=== PATIENT | female | born 1940 | race Caucasian/White ===

== ENCOUNTER 2016-06-26 14:07 | Emergency (ER) | payer MEDICARE, OTHER ==
[2016-06-26] MEDS ORDERED: Acetaminophen TAB* 325 MG PO ONE (16:13)
[2016-06-26] MEDS ORDERED: NS 0.9% 1000 ML* 1,000 ML IV ONE (16:13)
[2016-06-26 16:34] LABS: Hematocrit 35 % (35-47); Hemoglobin 11.7 g/dl (12.0-16.0); Mean Corpuscular HGB Conc 33 g/dl (31-36); Mean Corpuscular Hemoglobin 30 pg (27-31); Mean Corpuscular Volume 90 fL (80-97); Mean Platelet Volume 7 um3 (7.4-10.4); Red Blood Count 3.89 10^6/ul (4.0-5.4); Red Cell Distribution Width 14 % (10.5-15); White Blood Count 12.7 10^3/ul (3.5-10.8)
--- NOTE | 2016-06-26 16:37 | RAD ---
Indication: Headache, fever, body aches. Comparison: June 19, 2015 chest radiograph. Technique: Upright AP 1628 hours Report: Elevated lung volumes and both mild coarsening and rarefaction of the interstitial markings. Mild asymmetric patchy alveolar opacity in the RIGHT mid to upper lung zone concerning for potential inflammatory infiltrate. Negative for pleural effusion or pneumothorax. The heart, pulmonary vasculature, and mediastinal contours are unremarkable. Unchanged sharply circumscribed lucency at the proximal metaphysis of the RIGHT humerus without concern. IMPRESSION: Suggestion of mild inflammatory infiltrate at the RIGHT mid to upper lung zone superimposed on chronic obstructive pulmonary disease and emphysema.
[2016-06-26 16:43] LABS: Troponin I 0.01 ng/mL (<0.04)
[2016-06-26 16:45] LABS: Albumin 4.3 g/dL (3.2-5.2); BUN/Creatinine Ratio 11.9 (8-20); C Reactive Protein 11.46 mg/L (< 5.00); Calcium 9.1 mg/dL (8.6-10.3); EGFR Non-African American 86.3 (>60); Globulin 3.1 g/dL (2-4); Potassium 4.1 mmol/L (3.5-5.0); Total Bilirubin 0.3 mg/dL (0.2-1.0); Total Protein 7.4 g/dL (6.4-8.9)
[2016-06-26 19:03] LABS: Urine Bacteria Absent (Absent); Urine Bilirubin Negative (Negative); Urine Glucose Negative (Negative); Urine Nitrite Negative (Negative)
[2016-06-26] MEDS ORDERED: Levofloxacin 750 MG IVPREMIX(* 750 MG/150 ML BAG IVPB ONE (19:29)
[2016-06-26] MEDS ORDERED: oxyCODONE/Acetamin 5/325 MG* TAB PO ONE (19:29)
[2016-06-26 21:45] VITALS: BP 124/51
--- NOTE | 2016-06-27 17:21 | ED ---
Lazara Lagos Claudia, scribed for Dinesh Castillo MD on 06/26/16 at 1545 . Complex/Multi-Sys Presentation - HPI Summary HPI Summary: 75 year old female presents to the ED with multi-Sx. Pt notes gradual onset of Sx since Thursday. She notes that she went for an infusion on Thursday and began developing intermittent fevers, low back pain. MONROE, nausea and urinary Sx. She notes that the injection site to her right abdomen is erythematous and is warm. Pt describes the MONROE as a severe MNOROE located at the superior aspect of her head. She notes that within the past few days she has tried to urinate with smaller volume than usual. Her notes intermittent fevers reaching to 101F. Pt has tried to contact Dr. Paz the physician observing her infusion treatments but he has been out of the office. Pt then went to Dr. Costello today for monthly check-up and she referred the pt to the ED for further evaluation. - History Of Current Complaint Chief Complaint: EDGeneral Hx Obtained From: Patient, Family/Graffiti Cleaner - Onset/Duration: Gradual Onset, Lasting Days - since Thursday Timing: Constant Character: Sharp, Throbbing Associated Signs And Symptoms: Positive: Weakness, Nausea, Back Pain, Fever, Other - urinary Sx - Allergies/Home Medications Allergies/Adverse Reactions: Allergies Allergy/AdvReac Type Severity Reaction Status Date / Time No Known Allergies Allergy Verified 06/26/16 21:48 PMH/Surg Hx/FS Hx/Imm Hx Previously Healthy: Yes Endocrine/Hematology History: Reports: Hx Blood Transfusions Denies: Hx Blood Disorders, Hx Bone Marrow Disease, Hx Diabetes, Hx Systemic Lupus Erythematosus, Hx Sickle Cell Disease, Hx Thyroid Disease, Hx Anemia, Hx Unexplained Bleeding, Other Endocrine/Hematological Disorders - markers for multiple myoloma, lupus-- sees Dr Perry Comment Only: Hx Anticoagulant Therapy - HX COUMADIN (NOT CURRENTLY ON) Cardiovascular History: Reports: Hx Deep Vein Thrombosis - DVT/PE, Hx Hypercholesterolemia, Other Cardiovascular Problems/Disorders - TACHYCARDIA while hospitalized 2011 Denies: Hx Aneurysm, Hx Angina, Hx Angioplasty, Hx Auto Implanted Cardiovert Defib, Hx Cardiac Arrest, Hx Cardiomegaly, Hx Congenital Heart Disease, Hx Congestive Heart Failure, Hx Coronary Artery Disease, Hx Hypotension, Hx Hypertension, Hx Pacemaker/ICD, Hx Peripheral Vascular Disease, Hx Rheumatic Fever, Hx Syncope, Hx Valvular Heart Disease Respiratory History: Reports: Hx Asthma, Hx Chronic Bronchitis, Hx Chronic Obstructive Pulmonary Disease (COPD) - 2012, Hx Pneumonia, Hx Pulmonary Embolism , Hx Seasonal Allergies, Other Respiratory Problems/Disorders - HX MECH INTUBATION Denies: Hx Cystic Fibrosis, Hx Lung Cancer, Hx Pleural Effusion, Hx Pulmonary Edema, Hx Sleep Apnea GI History: Reports: Other GI Disorders - cyst on liver found 2012 hospitalization Denies: Hx Cirrhosis, Hx Crohn's Disease, Hx Diverticulosis, Hx Gall Bladder Disease, Hx Gastroesophageal Reflux Disease, Hx Gastrointestinal Bleed, Hx Hiatal Hernia, Hx Irritable Bowel, Hx Jaundice, Hx Obstructive Bowel, Hx Ileostomy, Hx Pyloric Stenosis, Hx Ulcer History: Denies: Hx Acute Renal Failure, Hx Benign Prostatic Hyperplasia, Hx Chronic Renal Failure, Hx Dialysis, Hx Kidney Infection, Hx Kidney Stones, Hx Renal Disease, Other Problems/Disorders Musculoskeletal History: Reports: Hx Arthritis, Other Musculoskeletal History - rotator cuff 06/2010 Denies: Hx Rheumatoid Arthritis, Hx Back Problems, Hx Bursitis, Hx Congenital Bone Abnormalities, Hx Fibromyalgia, Hx Gout, Hx Orthopedic Injury, Hx Osteoporosis, Hx Scoliosis, Hx Tendonitis Sensory History: Reports: Hx Contacts or Glasses - reading Denies: Hx Hearing Aid Opthamlomology History: Reports: Hx Contacts or Glasses - reading Neurological History: Reports: Other Neuro Impairments/Disorders - panic attack- -tachy takes lorazapam Denies: Hx Dementia, Hx Developmental Delay, Hx Headaches, Hx Migraine, Hx Nerve Disease, Hx Seizures, Hx Spinal Cord Injury, Hx Transient Ischemic Attacks (TIA) Psychiatric History: Reports: Hx Anxiety, Hx Depression Denies: Hx Attention Deficit Hyperactivity Disorder, Hx Eating Disorder, Hx Panic Disorder, Hx Post Traumatic Stress Disorder, Hx Community Mental Health Tx , Hx Schizophrenia, Hx Bipolar Disorder, Hx Suicide Attempt, Hx of Violent Episodes Against Others, Hx Substance Abuse, Other Psychiatric Issues/Disorders - Cancer History Cancer Type, Location and Year: states marker for multiple myeloma Hx Chemotherapy: No - Surgical History Surgery Procedure, Year, and Place: RT SHOULDER ROTATOR CUFF REPAIR. TRACHEOSTOMY ([facility]) 2011 r/t pneumonia Hx Anesthesia Reactions: No Infectious Disease History: Denies: Hx Clostridium Difficile, Hx Hepatitis, Hx Human Immunodeficiency Virus (HIV), Hx Shingles, Hx Tuberculosis, History Other Infectious Disease, Traveled Outside the [place] in Last 30 Days - Family History Family History: Breast CA - Social History Occupation: Retired Lives: With Family - Alcohol Use: None Substance Use Type: Reports: None Hx Tobacco Use: Yes Smoking Status (MU): Former Smoker Type: Cigarettes Amount Used/How Often: 1 PPD Length of Time of Smoking/Using Tobacco: 25 years Have You Smoked in the Last Year: No Cessation Counseling: Patient Advised to Stop Review of Systems Positive: Fever Eyes: Negative ENT: Negative Cardiovascular: Negative Respiratory: Negative Positive: Abdominal Pain, Nausea Positive: frequency - with decreased volume Musculoskeletal: Negative Skin: Negative Positive: Headache Psychological: Normal All Other Systems Reviewed And Are Negative: Yes Physical Exam Triage Information Reviewed: Yes Vital Signs On Initial Exam: Initial Vitals Temp Pulse Resp BP Pulse Ox 98.7 F 86 24 147/60 98 06/26/16 14:15 06/26/16 14:15 06/26/16 14:15 06/26/16 14:15 06/26/16 14:15 Vital Signs Reviewed: Yes Appearance: Positive: Well-Appearing, No Pain Distress Skin: Positive: Warm, Skin Color Reflects Adequate Perfusion, Dry, Other - mild erythema in right wall of abdomen with induration under it Head/Face: Positive: Normal Head/Face Inspection Eyes: Positive: Normal ENT: Positive: Normal ENT inspection Neck: Positive: Supple, Nontender Respiratory/Lung Sounds: Positive: Clear to Auscultation, Breath Sounds Present Cardiovascular: Positive: RRR Abdomen Description: Positive: Nontender, Soft Musculoskeletal: Positive: Normal Neurological: Positive: Normal Psychiatric: Positive: Affect/Mood Appropriate Diagnostics - Vital Signs Vital Signs Temp Pulse Resp BP Pulse Ox 06/26/16 15:10 86 17 154/49 93 06/26/16 14:15 98.7 F 86 24 147/60 98 - Laboratory Lab Results: Lab Results 06/26/16 06/26/16 06/26/16 Range/Units 15:32 16:00 16:00 WBC 12.7 H (3.5-10.8) 10^3/ul RBC 3.89 L (4.0-5.4) 10^6/ul Hgb 11.7 L (12.0-16.0) g/dl Hct 35 (35-47) % MCV 90 (80-97) fL MCH 30 (27-31) pg MCHC 33 (31-36) g/dl RDW 14 (10.5-15) % Plt Count 270 (150-450) 10^3/ul MPV 7 L (7.4-10.4) um3 Neut % (Auto) 86.4 H (38-83) % Lymph % (Auto) 8.4 L (25-47) % [place] % (Auto) 4.8 (1-9) % Eos % (Auto) 0.1 (0-6) % Baso % (Auto) 0.3 (0-2) % Absolute Neuts (auto) 11.0 H (1.5-7.7) 10^3/ul Absolute Lymphs (auto) 1.1 (1.0-4.8) 10^3/ul Absolute Monos (auto) 0.6 (0-0.8) 10^3/ul Absolute Eos (auto) 0 (0-0.6) 10^3/ul Absolute Basos (auto) 0 (0-0.2) 10^3/ul Absolute Nucleated RBC 0 10^3/ul Nucleated RBC % 0 INR (Anticoag Therapy) 1.01 (0.89-1.11) Sodium (133-145) mmol/L Potassium (3.5-5.0) mmol/L Chloride (101-111) mmol/L Carbon Dioxide (22-32) mmol/L Anion Gap (2-11) mmol/L BUN (6-24) mg/dL Creatinine (0.51-0.95) mg/dL Est GFR ( Amer) (>60) Est GFR (Non-Af Amer) (>60) BUN/Creatinine Ratio (8-20) Glucose (70-100) mg/dL Lactic Acid (0.5-2.0) mmol/L Calcium (8.6-10.3) mg/dL Total Bilirubin (0.2-1.0) mg/dL AST (13-39) U/L ALT (7-52) U/L Alkaline Phosphatase (34-104) U/L Troponin I (<0.04) ng/mL C-Reactive Protein (< 5.00) mg/L Total Protein (6.4-8.9) g/dL Albumin (3.2-5.2) g/dL Globulin (2-4) g/dL Albumin/Globulin Ratio (1-3) Urine Color Urine Appearance Urine pH (5-9) Ur Specific [place] (1.010-1.030) Urine Protein (Negative) Urine Ketones (Negative) Urine Blood (Negative) Urine Nitrate (Negative) Urine Bilirubin (Negative) Urine Urobilinogen (Negative) Ur Leukocyte Esterase (Negative) Urine WBC (Auto) (Absent) Urine RBC (Auto) (Absent) Ur Squamous Epith Cells (Absent) Amorphous Crystals (Absent) Urine Bacteria (Absent) Urine Glucose (Negative) Urine Ascorbic Acid (Negative) Influenza A (Rapid) Negative (Negative) Influenza B (Rapid) Negative (Negative) 06/26/16 06/26/16 06/26/16 Range/Units 16:00 16:00 18:44 WBC (3.5-10.8) 10^3/ul RBC (4.0-5.4) 10^6/ul Hgb (12.0-16.0) g/dl Hct (35-47) % MCV (80-97) fL MCH (27-31) pg MCHC (31-36) g/dl RDW (10.5-15) % Plt Count (150-450) 10^3/ul MPV (7.4-10.4) um3 Neut % (Auto) (38-83) % Lymph % (Auto) (25-47) % [place] % (Auto) (1-9) % Eos % (Auto) (0-6) % Baso % (Auto) (0-2) % Absolute Neuts (auto) (1.5-7.7) 10^3/ul Absolute Lymphs (auto) (1.0-4.8) 10^3/ul Absolute Monos (auto) (0-0.8) 10^3/ul Absolute Eos (auto) (0-0.6) 10^3/ul Absolute Basos (auto) (0-0.2) 10^3/ul Absolute Nucleated RBC 10^3/ul Nucleated RBC % INR (Anticoag Therapy) (0.89-1.11) Sodium 128 L (133-145) mmol/L Potassium 4.1 (3.5-5.0) mmol/L Chloride 97 L (101-111) mmol/L Carbon Dioxide 25 (22-32) mmol/L Anion Gap 6 (2-11) mmol/L BUN 8 (6-24) mg/dL Creatinine 0.67 (0.51-0.95) mg/dL Est GFR ( Amer) 111.0 (>60) Est GFR (Non-Af Amer) 86.3 (>60) BUN/Creatinine Ratio 11.9 (8-20) Glucose 126 H (70-100) mg/dL Lactic Acid 0.9 (0.5-2.0) mmol/L Calcium 9.1 (8.6-10.3) mg/dL Total Bilirubin 0.30 (0.2-1.0) mg/dL AST 31 (13-39) U/L ALT 36 (7-52) U/L Alkaline Phosphatase 50 (34-104) U/L Troponin I 0.01 (<0.04) ng/mL C-Reactive Protein 11.46 H (< 5.00) mg/L Total Protein 7.4 (6.4-8.9) g/dL Albumin 4.3 (3.2-5.2) g/dL Globulin 3.1 (2-4) g/dL Albumin/Globulin Ratio 1.4 (1-3) Urine Color Yellow Urine Appearance Cloudy Urine pH 7.0 (5-9) Ur Specific [place] 1.006 L (1.010-1.030) Urine Protein Negative (Negative) Urine Ketones Negative (Negative) Urine Blood Negative (Negative) Urine Nitrate Negative (Negative) Urine Bilirubin Negative (Negative) Urine Urobilinogen Negative (Negative) Ur Leukocyte Esterase Trace H (Negative) Urine WBC (Auto) Trace(0-5/hpf) (Absent) Urine RBC (Auto) Trace(0-2/hpf) (Absent) Ur Squamous Epith Cells Present H (Absent) Amorphous Crystals Present H (Absent) Urine Bacteria Absent (Absent) Urine Glucose Negative (Negative) Urine Ascorbic Acid * H (Negative) Influenza A (Rapid) (Negative) Influenza B (Rapid) (Negative) Result Diagrams: 06/26/16 16:00 06/26/16 16:00 Lab Statement: Any lab studies that have been ordered have been reviewed, and results considered in the medical decision making process. - Radiology CXR Xray Interpretation: Positive (See Comments) - Suggestion of mild inflammatory infiltrate at the RIGHT mid to upper lung zone superimposed on chronic obstructive pulmonary disease and emphysema. Radiology Interpretation Completed By: Radiologist Complex Multi-Symp Course/Dx Course Of Treatment: Ms. Castro remained stable in the ED and her CXR was read as early pneumonia. I will treat her and encourage close F/U. - Diagnoses Provider Diagnoses: Pneumonia Discharge - Discharge Plan Condition: Stable Disposition: HOME Prescriptions: HYDROcodone/ACETAMIN 5-325 MG* [[place] 5-325 TAB*] 1 tab PO Q6H PRN #20 tab MDD 4 PRN Reason: Pain Levofloxacin TAB* [Levaquin TAB*] 500 mg PO DAILY #10 tab Patient Education Materials: Hydrocodone/Acetaminophen (By mouth), Levofloxacin (By mouth), Pneumonia (ED) Referrals: Juan Pearce MD [Primary Care Provider] - 3 Days The documentation as recorded by the Lazara reynoso Claudia accurately reflects the service I personally performed and the decisions made by me, Dinesh Castillo MD.
== END 2016-06-26 21:43 | disposition home or self-care (01) ==
LOC: ED 14:07
DX: J18.9 Pneumonia, unspecified organism (principal); R53.1 Weakness; R11.0 Nausea; M54.9 Dorsalgia, unspecified; R50.9 Fever, unspecified; R51 Headache; Z87.891 Personal history of nicotine dependence
CPT/HCPCS: 36415; 71010; 80053; 81003; 81015; 83605; 84484; 85025; 85610; 86140; 87040; 87086; 87502; 96365; 99284; A9270-GY

== ENCOUNTER 2017-12-22 11:11 | Emergency (ER) | payer MEDICARE, OTHER ==
[2017-12-22] MEDS ORDERED: NS 0.9% 1000 ML*IV.FLUID IV ONE (11:21)
[2017-12-22] MEDS ORDERED: Piperacillin/Tazobac ADVAN(*) 3.375 GM in NS 0.9% 100 ML* 100 ML IVPB ONE (11:21)
--- NOTE | 2017-12-22 11:24 | ED ---
Shortness of Breath - HPI Summary HPI Summary: Patient is a 77 y/o female who presents to the ED c/o SOB. She had subcutaneous immunoglobulin infusion therapy yesterday. 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 She was in the ICU in a coma for 2 months. Patient began to have CP and SOB last night at 17:00. She called her field service technician poultry Dr. Paz this morning but he was not in office. - History of Current Complaint Chief Complaint: EDChestPainROMI Time Seen by Provider: 12/22/17 11:17 Hx Obtained From: Patient, Family/Account Development Representative - Onset/Duration: Lasting Hours - Last night 17:00, Still Present Timing: Constant Dyspnea At: Rest Aggrevating Factors: Other - Immunoglobulin infusion therapy Alleviating Factors: Nothing Associated Signs & Symptoms: Cough (Nonproductive), Wheezing, Chest Pain Unrelated to Cough - Allergy/Home Medications Allergies/Adverse Reactions: Allergies Allergy/AdvReac Type Severity Reaction Status Date / Time No Known Allergies Allergy Verified 06/26/16 21:48 Home Medications: Home Medications Aclidinium [place] [Tudorza Pressair] 400 mcg INH BID 12/22/17 [History Confirmed 12/22/17] Albuterol inh POWDER (NF) [Proair Respiclick] 2 puff INH QID PRN 12/22/17 [ History Confirmed 12/22/17] Albuterol/Ipratropium NEB.AUGUSTO* [Duoneb (Albuterol 2.5 MG/Ipratropium 0.5 MG)] 1 neb INH QID PRN 12/22/17 [History Confirmed 12/22/17] Amoxicillin PO (*) [Amoxicillin 500 MG CAP*] 1,000 mg PO ONCE PRN 12/22/17 [ History Confirmed 12/22/17] Ascorbic Acid TAB* [Vitamin C TAB*] 1,000 mg PO QAM 12/22/17 [History Confirmed 12/22/17] B2/Vits A,C,E/Lut/Zeaxanth/Min [Icaps Tablet] 2 tab PO DAILY 12/22/17 [History Confirmed 12/22/17] Clay/D3/Mag11/Zinc/Research Physiologist/Nathan/Bor [Caltrate 600+D Plus] 1 tab PO DAILY 12/22/17 [ History Confirmed 12/22/17] Cholecalciferol TAB* [Vitamin D TAB*] 1,000 unit PO DAILY 12/22/17 [History Confirmed 12/22/17] Cyanocobalamin (Vitamin B-12) [Vitamin B-12] 1,000 mcg PO DAILY 12/22/17 [ History Confirmed 12/22/17] Ferrous Sulfate [Iron] 325 mg PO DAILY 12/22/17 [History Confirmed 12/22/17] Fluticasone-Salmeterol 500-50* [Advair Diskus 500-50*] 1 puff INH BID 12/22/17 [ History Confirmed 12/22/17] Gabapentin CAP(*) [Neurontin 300 CAP(*)] 300 mg PO BID 12/22/17 [History Confirmed 12/22/17] Garlic [Garlic Oil 1000] 2 mg PO DAILY 12/22/17 [History Confirmed 12/22/17] Glucosamine/D3/Boswellia Bren [Osteo Bi-Flex Tablet] 1 tab PO DAILY 12/22/17 [ History Confirmed 12/22/17] Immun Glob G(IgG)/Gly/Iga Ov50 [Cuvitru] 8 gm SUBCUT WEEKLY 12/22/17 [History Confirmed 12/22/17] LORazepam TAB(*) [Ativan 0.5 MG TAB (*)] 0.5 mg PO Q8H PRN 12/22/17 [History Confirmed 12/22/17] Lactobacillus Combo No.10 [Probiotic] 1 cap PO BID 12/22/17 [History Confirmed 12/22/17] Lovastatin(NF) [Mevacor(NF)] 40 mg PO DAILY 12/22/17 [History Confirmed 12/22/17 ] Lutein [Natural Lutein] 20 mg PO DAILY 12/22/17 [History Confirmed 12/22/17] Meloxicam(NF) [Mobic(NF)] 7.5 mg PO DAILY PRN 12/22/17 [History Confirmed ] Multivit-Min/Iron/Folic/Lutein [Centrum Silver Women Tablet] 1 tab PO DAILY 05/10 [History Confirmed 12/22/17] [place]-3 Fatty Acids (Nf) [Fish Oil (NF)] 1,000 mg PO DAILY 12/22/17 [History Confirmed 12/22/17] Pyridoxine TAB* [Vitamin B6 TAB*] 25 mg PO DAILY 12/22/17 [History Confirmed 05/10] Roflumilast (NF) [Daliresp (NF)] 500 mcg PO DAILY 12/22/17 [History Confirmed ] Ropinirole TAB* [Requip TAB*] 0.25 mg PO QPM 12/22/17 [History Confirmed ] Sertraline* [Zoloft*] 25 mg PO DAILY MDD 50 mg 12/22/17 [History Confirmed 12/22] guaiFENesin [Mucinex] 800 mg PO DAILY PRN 12/22/17 [History Confirmed 12/22/17] predniSONE TAB* [Deltasone 1 MG TAB*] 2.5 mg PO DAILY 12/22/17 [History Confirmed 12/22/17] PMH/Surg Hx/FS Hx/Imm Hx Endocrine/Hematology History: Reports: Hx Blood Transfusions Denies: Hx Blood Disorders, Hx Bone Marrow Disease, Hx Diabetes, Hx Systemic Lupus Erythematosus, Hx Sickle Cell Disease, Hx Thyroid Disease, Hx Anemia, Hx Unexplained Bleeding, Other Endocrine/Hematological Disorders - markers for multiple myoloma, lupus-- sees Dr Perry Comment Only: Hx Anticoagulant Therapy - HX COUMADIN (NOT CURRENTLY ON) Cardiovascular History: Reports: Hx Deep Vein Thrombosis - DVT/PE, Hx Hypercholesterolemia, Other Cardiovascular Problems/Disorders - TACHYCARDIA while hospitalized 2011 Denies: Hx Aneurysm, Hx Angina, Hx Angioplasty, Hx Auto Implanted Cardiovert Defib, Hx Cardiac Arrest, Hx Cardiomegaly, Hx Congenital Heart Disease, Hx Congestive Heart Failure, Hx Coronary Artery Disease, Hx Hypotension, Hx Hypertension, Hx Pacemaker/ICD, Hx Peripheral Vascular Disease, Hx Rheumatic Fever, Hx Syncope, Hx Valvular Heart Disease Respiratory History: Reports: Hx Asthma, Hx Chronic Bronchitis, Hx Chronic Obstructive Pulmonary Disease (COPD) - 2011, Hx Pneumonia, Hx Pulmonary Embolism , Hx Seasonal Allergies, Other Respiratory Problems/Disorders - HX MECH INTUBATION Denies: Hx Cystic Fibrosis, Hx Lung Cancer, Hx Pleural Effusion, Hx Pulmonary Edema, Hx Sleep Apnea GI History: Reports: Other GI Disorders - cyst on liver found 2012 hospitalization Denies: Hx Cirrhosis, Hx Crohn's Disease, Hx Diverticulosis, Hx Gall Bladder Disease, Hx Gastroesophageal Reflux Disease, Hx Gastrointestinal Bleed, Hx Hiatal Hernia, Hx Irritable Bowel, Hx Jaundice, Hx Obstructive Bowel, Hx Ileostomy, Hx Pyloric Stenosis, Hx Ulcer History: Denies: Hx Acute Renal Failure, Hx Benign Prostatic Hyperplasia, Hx Chronic Renal Failure, Hx Dialysis, Hx Kidney Infection, Hx Kidney Stones, Hx Renal Disease, Other Problems/Disorders Musculoskeletal History: Reports: Hx Arthritis, Other Musculoskeletal History - rotator cuff 06/2010 Denies: Hx Rheumatoid Arthritis, Hx Back Problems, Hx Bursitis, Hx Congenital Bone Abnormalities, Hx Fibromyalgia, Hx Gout, Hx Orthopedic Injury, Hx Osteoporosis, Hx Scoliosis, Hx Tendonitis Sensory History: Reports: Hx Contacts or Glasses - reading Denies: Hx Hearing Aid Opthamlomology History: Reports: Hx Contacts or Glasses - reading Neurological History: Reports: Other Neuro Impairments/Disorders - panic attack- -tachy takes lorazapam Denies: Hx Dementia, Hx Developmental Delay, Hx Headaches, Hx Migraine, Hx Nerve Disease, Hx Seizures, Hx Spinal Cord Injury, Hx Transient Ischemic Attacks (TIA) Psychiatric History: Reports: Hx Anxiety, Hx Depression Denies: Hx Attention Deficit Hyperactivity Disorder, Hx Eating Disorder, Hx Panic Disorder, Hx Post Traumatic Stress Disorder, Hx Community Mental Health Tx , Hx Schizophrenia, Hx Bipolar Disorder, Hx Suicide Attempt, Hx of Violent Episodes Against Others, Hx Substance Abuse, Other Psychiatric Issues/Disorders - Cancer History Cancer Type, Location and Year: states marker for multiple myeloma Hx Chemotherapy: No Hx Radiation Therapy: No - Surgical History Surgery Procedure, Year, and Place: RT SHOULDER ROTATOR CUFF REPAIR. TRACHEOSTOMY ([facility]) 2012 r/t pneumonia Hx Anesthesia Reactions: No Infectious Disease History: No Infectious Disease History: Denies: Hx Clostridium Difficile, Hx Hepatitis, Hx Human Immunodeficiency Virus (HIV), Hx Shingles, Hx Tuberculosis, History Other Infectious Disease, Traveled Outside the [place] in Last 30 Days - Family History Known Family History: Positive: Other - Breast CA - Social History Alcohol Use: None Hx Substance Use: No Substance Use Type: Reports: None Hx Tobacco Use: Yes Smoking Status (MU): Former Smoker Type: Cigarettes Amount Used/How Often: 1 PPD Length of Time of Smoking/Using Tobacco: 25 years Have You Smoked in the Last Year: No Review of Systems Positive: Chest Pain Positive: Shortness Of Breath, Cough, Other - Wheezing All Other Systems Reviewed And Are Negative: Yes Physical Exam - Summary Physical Exam Summary: VITAL SIGNS: Reviewed. GENERAL: Patient is a well-developed and nourished FEMALE who is lying comfortable in the stretcher. Patient is in acute respiratory distress. HEAD AND FACE: No signs of trauma. No ecchymosis, hematomas or skull depressions. No sinus tenderness. EYES: PERRLA, EOMI x 2, No injected conjunctiva, no nystagmus. EARS: Hearing grossly intact. Ear canals and tympanic membranes are within normal limits. MOUTH: Oropharynx within normal limits. NECK: Supple, trachea is midline, no adenopathy, no JVD, no carotid bruit, no c- spine tenderness, neck with full ROM. CHEST: Symmetric, no tenderness at palpation LUNGS: Decreased breath sounds. Bilateral wheezes. Able to speak in full sentences. CVS: Regular rate and rhythm, S1 and S2 present, no murmurs or gallops appreciated. ABDOMEN: Soft, non-tender. No signs of distention. No rebound no guarding, and no masses palpated. Bowel sounds are normal. EXTREMITIES: FROM in all major joints, no edema, no cyanosis or clubbing. NEURO: Alert and oriented x 3. No acute neurological deficits. Speech is normal and follows commands. SKIN: Dry and warm Triage Information Reviewed: Yes Vital Signs On Initial Exam: Initial Vitals Temp Pulse Resp BP Pulse Ox 97 F 104 26 143/57 93 12/22/17 11:12 12/22/17 11:12 12/22/17 11:12 12/22/17 11:12 12/22/17 11:12 Vital Signs Reviewed: Yes Diagnostics - Vital Signs Vital Signs Temp Pulse Resp BP Pulse Ox 12/22/17 11:12 97 F 104 26 143/57 93 - Laboratory Result Diagrams: 12/22/17 11:51 12/22/17 11:51 Lab Statement: Any lab studies that have been ordered have been reviewed, and results considered in the medical decision making process. - Radiology CXR Xray Interpretation: No Acute Changes - COPD. NO ACUTE CARDIOPULMONARY CHANGES. ED physician reviewed radiology report. Radiology Interpretation Completed By: Radiologist - EKG 11:34 Cardiac Rate: NL - 93 bpm EKG Rhythm: Sinus Rhythm EKG Interpretation: No ST elevation, nl axis Course/Dx - Course Assessment/Plan: Patient is a 77 y/o female who presents to the ED c/o SOB. She had subcutaneous immunoglobulin infusion therapy yesterday. 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 She was in the ICU in a coma for 2 months. Patient began to have CP and SOB last night at 17:00. She called her field service technician poultry Dr. Paz this morning but he was not in office. Patient has past medical history significant for COPD O2 dependent, history of tobacco abuse, history of intubation and tracheostomy secondary to pneumonia in 2011, history of PE and DVT, history of frequent pneumonias and bronchitis and immunodeficiency for which the patient gets frequent immunoglobulin infusions. At arrival to the emergency room the patient is in respiratory distress, O2 sats is in the upper 80s, however the patient is able to speak in full sentences. Immediately the patient was placed in a manager cardiac cath, IV access was obtained and the patient was given DuoNeb's and Solu-Medrol and since the patient's is wheezing and picking decreased breath sounds bilaterally. I believe the patient is having an asthma exacerbation. However because the patient has an increase in heart rate, hypoxic, and she reports right course I gave the patient IV fluids 30 cc's per KG, I placed the patient and Zosyn as a broad-spectrum antibiotic. Blood test results shows wbc's of 15.1, with 83.5 neutrophils, fibrinogen of 531.5, sodium 131, chloride 98, glucose 125, and CRP of 54.6. Chest x-ray impression: COPD. No active Pulmonary disease. EKG shows a normal sinus rhythm without any ST elevations. At this point I discussed my physical exam, findings and test results with Dr. Ac from the hospitalist services who accepted the patient for admission. At this point the patient is more stable and she is alert and oriented 3. Dr. Ac discharged the patient after accepting for admission. - Diagnoses Differential Diagnosis/HQI/PQRI: Positive: Asthma, Bronchitis, CHF, Chest Wall Pain, COPD Exacerbation, NC, Pneumonia Provider Diagnoses: COPD exacerbation, Sepsis - Physician Notifications Discussed Care of Patient With: Fidel Ac Time Discussed With Above Provider: 14:30 Instructed by Provider To: Admit As Inpatient Discharge - Sign-Out/Discharge Documenting (check all that apply): Patient Departure - Admit - Discharge Plan Condition: Stable Disposition: HOME Prescriptions: Levofloxacin TAB* [Levaquin TAB*] 500 mg PO DAILY #6 tab Patient Education Materials: COPD (Chronic Obstructive Pulmonary Disease) (ED) Referrals: Juan Pearce MD [Primary Care Provider] - 3 Days Additional Instructions: RETURN TO THE ED FOR ANY WORSENING OR NEW SYMPTOMS. - Billing Disposition and Condition Condition: STABLE Disposition: Admitted to [facility] - Attestation Statements Document Initiated by Milton: Yes Documenting Scribe: Eloisa Price Provider For Whom Milton is Documenting (Include Credential): Anrdiy Shields MD Scribe Attestation: Eloisa Lagos, scribed for Andriy Shiedls MD on 12/24/17 at 0907. Scribe Documentation Reviewed: Yes Provider Attestation: The documentation as recorded by the Eloisa reynoso accurately reflects the service I personally performed and the decisions made by , Andriy Shields MD
[2017-12-22] MEDS ORDERED: Vancomycin(*) 1,000 MG VIAL IVPB SCH (12:00)
[2017-12-22] MEDS ORDERED: Vancomycin(*) 1,000 MG in NS 0.9% 250 ML* 250 ML IVPB ONE (12:00)
[2017-12-22] MEDS: Albuterol/Ipratropium NEB.SOL* Albuterol 2.5 MG/Ipratropium 0.5 MG 3 ML INH SCH ×2 (12:02→12:09)
[2017-12-22 12:06] LABS: ABS Basophils 0.1 10^3/ul (0-0.2); ABS Eosinophils 0.1 10^3/ul (0-0.6); ABS Lymphocytes 1.1 10^3/ul (1.0-4.8); ABS Monocytes 1.2 10^3/ul (0-0.8); ABS Neutrophils 12.6 10^3/ul (1.5-7.7); ABS Nucleated RBC 0 10^3/ul; Eosinophil % 0.8 % (0-6); Hematocrit 35 % (35-47); Hemoglobin 11.7 g/dl (12.0-16.0); Lymphocyte % 7.2 % (25-47); Mean Corpuscular HGB Conc 33 g/dl (31-36); Mean Corpuscular Hemoglobin 30 pg (27-31); Mean Corpuscular Volume 91 fL (80-97); Mean Platelet Volume 6.6 um3 (7.4-10.4); Nucleated Red Blood Cells % 0.1; Platelet Count 374 10^3/ul (150-450); Red Blood Count 3.89 10^6/ul (4.00-5.40); Red Cell Distribution Width 14 % (10.5-15); White Blood Count 15.1 10^3/ul (3.5-10.8)
[2017-12-22] MEDS ORDERED: LORazepam INJ* 2 MG/ML 1 ML VIAL IV PUSH ONE (12:24)
[2017-12-22 12:29] LABS: EGFR Non-African American 82.9 (>60)
[2017-12-22 12:52] LABS: INR 1.02 (0.77-1.02)
[2017-12-22] MEDS ORDERED: methylPREDNISolone 125 MG* 2 ML VIAL IV ONE (13:07)
--- NOTE | 2017-12-22 13:38 | RAD ---
HISTORY: SOB COMPARISONS: June 26, 2016 VIEWS: 1: frontal AP view of the chest at 12:30 PM FINDINGS: LINES AND TUBES: None. CARDIOMEDIASTINAL SILHOUETTE: The cardiomediastinal silhouette is normal for portable technique. PLEURA: The costophrenic angles are sharp. No pleural abnormalities are noted. LUNG PARENCHYMA: There is hyperinflation. ABDOMEN: The upper abdomen is clear. There is no subphrenic gas. BONES AND SOFT TISSUES: No bone or soft tissue abnormalities are noted. IMPRESSION: COPD. NO ACTIVE CARDIOPULMONARY DISEASE.
[2017-12-22] MEDS ORDERED: Levofloxacin TAB* 500 MG PO SCH (14:00)
[2017-12-22 15:47] VITALS: BP 110/67
--- NOTE | 2017-12-23 07:32 | CONS ---
CC: Dr. Pearce; Dr. Mane Paz; Dr. Hines * MEDICAL CONSULTATION NOT: DATE OF CONSULT: 12/22/17 - EMERGENCY DEPT HISTORY OF PRESENT ILLNESS: This 77-year-old woman was brought to the emergency room by her . She has been sick for 4 days. I note that the keeps meticulous detailed records of and is extremely involved in her care. He really answered all questions that I posed to the patient. She developed a cough with some yellowish sputum on Thursday. Over the weekend she continued the same, but became a little worse today. There may have been some wheezing but not today. He treated her with inhalers, nebulizers as before. I note she is on home oxygen 2 to 3 L a minute by nasal cannula. She has common variable immunodeficiency and gets weekly subcutaneous infusions of immunoglobulin administered by her . She quit smoking several years ago. I note that the patient did not have a fever at home but did have some chills and sweats. Her temperature in the emergency room was 97 degrees, heart rate 87 , blood pressure 143/65. She is a thin elderly woman in no acute distress. HEENT was unremarkable. Head was normocephalic. Mouth and pharynx are clear. Lungs are clear to auscultation and percussion. The heart was regular without murmurs or rubs. Abdomen is soft, no masses or organomegaly. There was no pedal edema, no calf tenderness. She seemed somewhat hyperpigmented. Skin was warm and dry and intact. Joints were unremarkable. DIAGNOSTIC STUDIES/LAB DATA: White count was 15.1, hemoglobin 11.7. Sodium was 131, potassium 4.4, BUN 17, creatinine 0.69. Her CRP was 54.61. Liver function tests were normal. Chest x-ray showed hyperinflation. The patient received a dose of vancomycin and piperacillin-tazobactam in the emergency room. requested the trial of treatment at home. She is going to get an oral dose of levofloxacin 500 mg p.o. here and then the prescription for the same daily for 6 more days for a total 7-day course. He is instructed to contact me or one of her other physicians if there was any question or worsening, to bring her back to the emergency room. He will take her temperature at least 3 times a day which I think he would do in any case. FINAL DIAGNOSES: 1. Acute bronchitis. 2. Common variable immunodeficiency. 3. Chronic obstructive pulmonary disease. The patient will continue on her guaifenesin, albuterol and ipratropium by nebulizer, albuterol inhaler, fluticasone and salmeterol Diskus, Tudorza, and Daliresp. She will continue on her prednisone 2.5 mg daily. [id number]/[facility] #: [id number] [facility]
== END 2017-12-22 15:46 | disposition home or self-care (01) ==
LOC: ED 11:11
DX: J44.1 Chronic obstructive pulmonary disease with (acute) exacerbation (principal); A41.9 Sepsis, unspecified organism; R05 Cough; R06.2 Wheezing; R07.9 Chest pain, unspecified
CPT/HCPCS: 36415; 71045; 80053; 82550; 82803; 83605; 83880; 84145; 84484; 85025; 85384; 85610; 85652; 85730; 86140; 86850; 86900; 86901; 87040; 93005; 96365; 96366; 99285; A9270-GY; J2060; J2543; J2930; J3370

== ENCOUNTER 2018-03-21 10:56 | Inpatient (IN) | payer MEDICARE, OTHER ==
--- NOTE | 2018-03-21 11:19 | ED ---
Complex/Multi-Sys Presentation - HPI Summary HPI Summary: A 77 y/o F presents to ED with c/o R-flank onset one week ago and worsening last night. Pt states she couldn't get out of bed this AM. The pain is radiating to her R back and hip. The pain does not radiate to her RLE. Associated sx: cough, abd pain, nausea, vomiting for 2 days since resolved, intermittent fever. Denies fall. She uses 2L home O2. She saw her doctor on , she is scheduled to go tomorrow. She had routine blood work yesterday. Pt receives immunoglobulin therapy weekly, and last had it 03/14/18. 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 She has not had medication for two days. Aggravating factors: deep breaths. In 2011, pt was in ICU for two months at [facility]. PMHx: COPD , back problems, PE, DVT. - History Of Current Complaint Chief Complaint: EDFlankPain Hx Obtained From: Patient Onset/Duration: Gradual Onset, Lasting Weeks - approx 1 week, Still Present Timing: Constant Severity Currently: Moderate Severity Initially: Severe Location: Pain At: - R flank, Radiates To: - R back, R hip Aggravating Factor(s): Movement, touch Associated Signs And Symptoms: Positive: Cough, Nausea, Vomiting, Abdominal Pain , Back Pain, Fever - Allergies/Home Medications Allergies/Adverse Reactions: Allergies Allergy/AdvReac Type Severity Reaction Status Date / Time cefaclor Allergy Hives Verified 03/21/18 11:26 PMH/Surg Hx/FS Hx/Imm Hx Previously Healthy: No Endocrine/Hematology History: Reports: Hx Blood Transfusions Denies: Hx Blood Disorders, Hx Bone Marrow Disease, Hx Diabetes, Hx Systemic Lupus Erythematosus, Hx Sickle Cell Disease, Hx Thyroid Disease, Hx Anemia, Hx Unexplained Bleeding, Other Endocrine/Hematological Disorders - markers for multiple myoloma, lupus-- sees Dr Perry Comment Only: Hx Anticoagulant Therapy - HX COUMADIN (NOT CURRENTLY ON) Cardiovascular History: Reports: Hx Deep Vein Thrombosis - DVT/PE, Hx Hypercholesterolemia, Other Cardiovascular Problems/Disorders - TACHYCARDIA while hospitalized 2011 Denies: Hx Aneurysm, Hx Angina, Hx Angioplasty, Hx Auto Implanted Cardiovert Defib, Hx Cardiac Arrest, Hx Cardiomegaly, Hx Congenital Heart Disease, Hx Congestive Heart Failure, Hx Coronary Artery Disease, Hx Hypotension, Hx Hypertension, Hx Pacemaker/ICD, Hx Peripheral Vascular Disease, Hx Rheumatic Fever, Hx Syncope, Hx Valvular Heart Disease Respiratory History: Reports: Hx Asthma, Hx Chronic Bronchitis, Hx Chronic Obstructive Pulmonary Disease (COPD) - 2011, Hx Pneumonia, Hx Pulmonary Embolism , Hx Seasonal Allergies, Other Respiratory Problems/Disorders - HX MECH INTUBATION Denies: Hx Cystic Fibrosis, Hx Lung Cancer, Hx Pleural Effusion, Hx Pulmonary Edema, Hx Sleep Apnea GI History: Reports: Other GI Disorders - cyst on liver found 2011 hospitalization Denies: Hx Cirrhosis, Hx Crohn's Disease, Hx Diverticulosis, Hx Gall Bladder Disease, Hx Gastroesophageal Reflux Disease, Hx Gastrointestinal Bleed, Hx Hiatal Hernia, Hx Irritable Bowel, Hx Jaundice, Hx Obstructive Bowel, Hx Ileostomy, Hx Pyloric Stenosis, Hx Ulcer History: Denies: Hx Acute Renal Failure, Hx Benign Prostatic Hyperplasia, Hx Chronic Renal Failure, Hx Dialysis, Hx Kidney Infection, Hx Kidney Stones, Hx Renal Disease, Other Problems/Disorders Musculoskeletal History: Reports: Hx Arthritis, Other Musculoskeletal History - rotator cuff 06/2010 Denies: Hx Rheumatoid Arthritis, Hx Back Problems, Hx Bursitis, Hx Congenital Bone Abnormalities, Hx Fibromyalgia, Hx Gout, Hx Orthopedic Injury, Hx Osteoporosis, Hx Scoliosis, Hx Tendonitis Sensory History: Reports: Hx Contacts or Glasses - reading Denies: Hx Hearing Aid Opthamlomology History: Reports: Hx Contacts or Glasses - reading Neurological History: Reports: Other Neuro Impairments/Disorders - panic attack- -tachy takes lorazapam Denies: Hx Dementia, Hx Developmental Delay, Hx Headaches, Hx Migraine, Hx Nerve Disease, Hx Seizures, Hx Spinal Cord Injury, Hx Transient Ischemic Attacks (TIA) Psychiatric History: Reports: Hx Anxiety, Hx Depression Denies: Hx Attention Deficit Hyperactivity Disorder, Hx Eating Disorder, Hx Panic Disorder, Hx Post Traumatic Stress Disorder, Hx Community Mental Health Tx , Hx Schizophrenia, Hx Bipolar Disorder, Hx Suicide Attempt, Hx of Violent Episodes Against Others, Hx Substance Abuse, Other Psychiatric Issues/Disorders - Cancer History Cancer Type, Location and Year: states marker for multiple myeloma Hx Chemotherapy: No Hx Radiation Therapy: No - Surgical History Surgery Procedure, Year, and Place: RT SHOULDER ROTATOR CUFF REPAIR. TRACHEOSTOMY (TEMP) 2011 r/t pneumonia Hx Anesthesia Reactions: No Infectious Disease History: No Infectious Disease History: Denies: Hx Clostridium Difficile, Hx Hepatitis, Hx Human Immunodeficiency Virus (HIV), Hx Shingles, Hx Tuberculosis, History Other Infectious Disease, Traveled Outside the [place] in Last 30 Days - Family History Known Family History: Positive: Other Family History: Breast CA - Social History Occupation: Retired Lives: With Family Alcohol Use: None Hx Substance Use: No Substance Use Type: Reports: None Hx Tobacco Use: Yes Smoking Status (MU): Former Smoker Type: Cigarettes Amount Used/How Often: 1 PPD Length of Time of Smoking/Using Tobacco: 25 years Have You Smoked in the Last Year: No Review of Systems Positive: Fever Positive: Cough Positive: Abdominal Pain, Vomiting, Nausea Positive: flank pain - R Musculoskeletal: Other - pos: R back pain, R hip pain All Other Systems Reviewed And Are Negative: Yes Physical Exam - Summary Physical Exam Summary: GENERAL: Patient is a well-developed and nourished F who is very uncomfortable in the stretcher. Patient is not in any acute respiratory distress. HEAD AND FACE: Normocephalic EYES: PERRLA, EOMI x 2. EARS: Hearing grossly intact. MOUTH: Oropharynx within normal limits. NECK: Supple, trachea is midline, no adenopathy, no JVD, no carotid bruit. CHEST: Symmetric, no tenderness at palpation LUNGS: Clear to auscultation bilaterally. No wheezing or crackles. CVS: Regular rate and rhythm, S1 and S2 present, no murmurs or gallops appreciated. ABDOMEN: Soft, non-tender. Bowel sounds are normal. No abdominal abnormal pulsations. EXTREMITIES: Tender in R buttocks. No edema, no cyanosis or clubbing. NEURO: Alert and oriented x 3. No acute neurological deficits. Speech is normal and follows commands. SKIN: Dry and warm Triage Information Reviewed: Yes Vital Signs On Initial Exam: Initial Vitals Temp Pulse Resp BP Pulse Ox 96.6 F 88 24 146/77 92 03/21/18 11:04 03/21/18 11:04 03/21/18 11:04 03/21/18 11:04 03/21/18 11:04 Vital Signs Reviewed: Yes Diagnostics - Vital Signs Vital Signs Temp Pulse Resp BP Pulse Ox 03/21/18 11:04 96.6 F 88 24 146/77 92 - Laboratory Result Diagrams: 03/21/18 11:26 03/21/18 11:26 Lab Statement: Any lab studies that have been ordered have been reviewed, and results considered in the medical decision making process. - CT A/P CT CT Interpretation Completed By: Radiologist Summary of CT Findings: IMPRESSION: 1. Obstructive choledocholithiasis with what appears to be a 3 mm stone obstructing the. distal common bile duct. Proximally the common bile duct is dilated up to 1.4 cm in. diameter and there is mild to moderate intrahepatic biliary duct dilatation. 2. There is coarsely calcified atherosclerosis of the lower abdominal aorta extending into. the iliofemoral arteries. Please correlate to any signs or symptoms of lower extremity. arterial insufficiency. 3. There are additional chronic and degenerative changes described in the body the report. unlikely to be directly related to the patient's current clinical presentation. ED provider has reviewed this report. Re-Evaluation - Re-Evaluation 1 Re-Evaluation Time: 12:00 - Change: Unchanged Comment: Pt still in pain, just received Dilaudid. Discussed on holding off on more pain meds at this time. 2 Re-Evaluation Time: 15:15 Change: Unchanged Comment: Discussing CT results with pt and . Pt still c/o pain. Complex Multi-Symp Course/Dx Course Of Treatment: Pt is a 77 y/o F presenting with R flank, R back and R hip pain onset one week ago and worsening last night. She also has cough, abd pain, nausea, vomiting, intermittent fever. Denies RLE pain and recent fall. A/P CT shows "IMPRESSION: 1. Obstructive choledocholithiasis with what appears to be a 3 mm stone obstructing the distal common bile duct. Proximally the common bile duct is dilated up to 1.4 cm in diameter and there is mild to moderate intrahepatic biliary duct dilatation. 2. There is coarsely calcified atherosclerosis of the lower abdominal aorta extending into the iliofemoral arteries. Please correlate to any signs or symptoms of lower extremity arterial insufficiency. 3. There are additional chronic and degenerative changes described in the body the report unlikely to be directly related to the patient' s current clinical presentation. ". Consulted with Dr. Carrero, general surgery, who recommends GI clearance and hospitalist admission and should call her once ERCP is done. Consult with Dr. Avery, GI, who can do ERCP. Consulted with Dr. Luna, hospitalist, who will admit patient. - Diagnoses Provider Diagnoses: Choledocholithiasis - Physician Notifications Discussed Care Of Patient With: Alyson Magan - gen surgery Time Discussed With Above Provider: 15:21 Instructed by Provider To: Other - Admit to hospitalist, get GI clearance then contact surgery again. - Critical Care Time Critical Care Time: 30-74 min Discharge - Sign-Out/Discharge Documenting (check all that apply): Patient Departure - Discharge Plan Condition: Stable Disposition: ADMITTED TO [facility] Referrals: Juan Pearce MD [Primary Care Provider] - - Billing Disposition and Condition Condition: STABLE Disposition: Admitted to [facility] - Attestation Statements Document Initiated by Scribe: Yes Documenting Scribe: Kevyn Aceves Provider For Whom Scribe is Documenting (Include Credential): Dr. Roge Pollack MD Scribe Attestation: I, Kevyn Aceves, scribed for Dr. Roge Pollack MD on 03/21/18 at 1703. Scribe Documentation Reviewed: Yes Provider Attestation: The documentation as recorded by the anglees, Kevyn Aceves accurately reflects the service I personally performed and the decisions made by me, Dr. Roge Pollack MD Status of Scribe Document: Viewed Consult Consult: At 1539: Consult with Tracy Pandey Requesting contacting GI on-call. At 1546: Consult with Dr. Avery, GI Can do the ERCP, agrees with admission. At 1605: Consult with Dr. Luna, Hospitalist Accepted patient for admission.
[2018-03-21] MEDS ORDERED: Morphine VIAL* 4 MG/ML VIAL (1 ml vial) IV ONE (11:26)
[2018-03-21] MEDS ORDERED: Ondansetron INJ* 2 MG/ML VIAL IV ONE (11:26)
[2018-03-21] MEDS ORDERED: HYDROmorphone INJ* 0.5 MG/0.5 ML SYRINGE IV SLOW PU ONE (11:26)
[2018-03-21] MEDS ORDERED: Ondansetron INJ* 2 MG/ML VIAL ONE (11:30)
[2018-03-21] MEDS ORDERED: Morphine VIAL* 4 MG/ML VIAL (1 ml vial) ONE (11:30)
[2018-03-21] MEDS ORDERED: HYDROmorphone INJ* 1 MG/ML CARPUJECT SYRINGE IV SLOW PU ONE (11:39)
[2018-03-21] MEDS ORDERED: NS 0.9% 1000 ML* 1,000 ML IV ONE (11:43)
[2018-03-21 11:49] LABS: ABS Basophils 0.1 10^3/ul (0-0.2); ABS Eosinophils 0.1 10^3/ul (0-0.6); ABS Lymphocytes 1.2 10^3/ul (1.0-4.8); ABS Neutrophils 6.4 10^3/ul (1.5-7.7); ABS Nucleated RBC 0 10^3/ul; Eosinophil % 1.6 %; Hematocrit 37 % (35-47); Hemoglobin 12.5 g/dl (12.0-16.0); Mean Corpuscular HGB Conc 34 g/dl (31-36); Mean Corpuscular Hemoglobin 31 pg (27-31); Mean Corpuscular Volume 92 fL (80-97); Mean Platelet Volume 7.1 fL (7.4-10.4); Nucleated Red Blood Cells % 0; Platelet Count 346 10^3/ul (150-450); Red Cell Distribution Width 14 % (10.5-15); White Blood Count 8.8 10^3/ul (3.5-10.8)
[2018-03-21] MEDS ORDERED: HYDROmorphone INJ* 0.5 MG/0.5 ML SYRINGE ONE (11:50)
[2018-03-21 11:58] LABS: Activated Partial Thrombo Time 38.3 seconds (26.0-36.3); INR 0.94 (0.77-1.02)
[2018-03-21 12:09] LABS: ALT 344 U/L (7-52); AST 107 U/L (13-39); Albumin 4.2 g/dL (3.2-5.2); Albumin/Globulin Ratio 1.3 (1-3); Alkaline Phosphatase 177 U/L (34-104); Anion Gap 8 mmol/L (2-11); BUN/Creatinine Ratio 11.1 (8-20); Blood Urea Nitrogen 8 mg/dL (6-24); C Reactive Protein 14.18 mg/L (<8.01); CO2 Carbon Dioxide 28 mmol/L (22-32); Calcium 9.4 mg/dL (8.6-10.3); Chloride 101 mmol/L (101-111); Globulin 3.2 g/dL (2-4); Glucose 107 mg/dL (70-100); Magnesium 1.8 mg/dL (1.9-2.7); Potassium 3.8 mmol/L (3.5-5.0); Sodium 137 mmol/L (135-145); Total Protein 7.4 g/dL (6.4-8.9)
[2018-03-21] MEDS ORDERED: Iohexol 300* (CONTRAST) 10 ML SDV IV ONE (12:45)
[2018-03-21] MEDS ORDERED: Diazepam SYRINGE* 5 MG/ML 2 ML SYRINGE (10 MG total) IV ONE (13:52)
[2018-03-21] MEDS ORDERED: Diazepam TAB(*) 5 MG ONE (13:56)
[2018-03-21] MEDS: Diazepam TAB(*) 5 MG PO ONE ×2 (13:59→14:53)
[2018-03-21] MEDS ORDERED: PROCHLORPERAZINE INJ 5 MG/ML 2 ML VIAL IV PRN (17:06)
[2018-03-21] MEDS ORDERED: metroNIDAZOLE IV 500 MG/100ML* 500 MG/100 ML BAG IVPB ONE (17:09)
[2018-03-21] MEDS ORDERED: Ciprofloxacin 400MG IVPREMIX(* 400 MG/200 ML BAG IVPB ONE (17:09)
[2018-03-21] MEDS ORDERED: Magnesium Sulfate 1 GM IV* 1 GM/100 ML BAG IV ONE ×2 (17:26→22:00)
[2018-03-21] MEDS: HYDROmorphone INJ* 0.5 MG/0.5 ML SYRINGE IV SLOW PU PRN ×2 (17:40→21:40)
[2018-03-21] MEDS: LORazepam INJ* 2 MG/ML 1 ML VIAL IV PUSH PRN (19:41)
[2018-03-21] MEDS: Hydrocortisone INJ* 100 MG VIAL IV SCH (19:42)
[2018-03-21] MEDS: Lactated Ringers 1000 ML Bag* 1,000 ML IV SCH (20:05)
[2018-03-21] MEDS ORDERED: metroNIDAZOLE IV 500 MG/100ML* 500 MG/100 ML BAG IVPB SCH (20:30)
[2018-03-21] MEDS: Mometasone/Formoter 200/5 MDI INH SCH (20:43)
--- NOTE | 2018-03-21 21:17 | HP ---
CC: Dr. Pearce; Dr. Paz; Dr. Mannie Avery HISTORY AND PHYSICAL: DATE OF ADMISSION: 03/21/18 TIME OF EVALUATION: 4:45 p.m. PRIMARY CARE PROVIDER: Dr. Pearce. INSEAM LEVELER: Dr. Paz. CONSULTING ARTIFICIAL BREEDING TECHNICIAN: Dr. Mannie Avery. CHIEF COMPLAINT: Abdominal pain. HISTORY OF PRESENT ILLNESS: Mrs. Castro is a 77-year-old lady with a past medical history of COPD, on home O2, with a prior history of frequent bronchitis; frequent pneumonias with an episode requiri ng intubation tracheostomy in 2011; history of DVT and PE; paroxysmal SVT; anxiety; depression; combi pallavi immunodeficiency, receiving immunoglobulin, who presents to the emergency room with complaints of severe right upper quadrant abdominal pain. The patient states that she has been in her usual state of health until 03/13/18. She had a doughnut that day and on 03/15/18, she started to have multiple episodes of nausea and vomiting. This progres sed with right upper quadrant pain that was initially described as mild. The also describes low-grade fever, but nothing higher than 100. She saw a nurse practitioner in Dr. Pearce's office on 03/19/18 and at that time, she had labs done that showed an AST of 205; ALT of 553; normal amylase, lipase, and direct bilirubin. She was advised to follow a liquid diet, to stop her oral meds, and co ntinue only her inhalers and as per her , the impression was that the patient could have hepat itis. She had labs repeated on 03/20/18 and her AST was 141 with an ALT of 420, so the impression wa s that it was trending down and she was supposed to follow up this week, but today the right upper qu adrant pain became severe, 10/10, radiating to her back to the point that she could not tolerate anym ore and had to come to the emergency room for further evaluation and treatment. Her workup in the ED revealed obstructive choledocholithiasis with CBD dilation and [id number] intrahepatic biliary duct dilatation. The patient states she has not been able to eat much and when the symptoms started, the pain was arou nd 4 to 5 in intensity and intermittent, but now the pain is severe and constant. She denies chest pain, palpitations, any change in her shortness of breath. The patient's states that her respiratory status has improved since she started to follow gabriel Paz and was diagnosed with combined immunodeficiency and started on immunoglobulins that she receives every Thursday. The states that she has had only mild respiratory issues. Her last i nfection was in December and it was treated as outpatient with levofloxacin and prednisone. She has n ot been admitted since 2014. PAST MEDICAL HISTORY: 1. COPD, on home O2. 2. History of recurrent bronchitis and pneumonia with a history of intubation, tracheostomy in 2011. 3. History of DVT and PE. 4. Paroxysmal SVT. 5. Anxiety. 6. Depression. 7. 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 9. History of cholelithiasis, diagnosed in 2014. The patient states that she saw Dr. Hope in , but at that point, she was asymptomatic and no surgery was pursued. PAST SURGICAL HISTORY: Status post right shoulder rotator cuff repair in 2010. MEDICATION LIST: 1. Tudorza Pressair 400 mcg inhaled b.i.d. 2. Albuterol HFA 2 puffs inhaled q.i.d. p.r.n. shortness of breath. 3. DuoNeb 1 nebulizer q.i.d. p.r.n. shortness of breath. 4. Vitamin C 1000 mg p.o. daily. 5. ICaps 2 tabs p.o. daily. 6. Caltrate 600 plus D 1 tablet p.o. daily. 7. Vitamin D 1000 units p.o. daily. 8. Vitamin B12 1000 mcg p.o. daily. 9. Ferrous sulfate 325 mg p.o. daily. 10. Advair 500/50 one puff inhaled b.i.d. 11. Gabapentin 300 mg p.o. b.i.d. 12. Garlic 2 mg p.o. daily. 13. Osteo Bi-Flex 1 tablet p.o. daily. 14. Guaifenesin 800 mg p.o. daily as needed for congestion. 15. Immunoglobulin G (Cuvitru) 8 g subcutaneously weekly. 16. Lactobacillus 1 capsule p.o. b.i.d. 17. Lorazepam 0.5 mg p.o. q.8 hours p.r.n. anxiety. 18. Lutein 20 mg p.o. daily. 19. Meloxicam 7.5 mg p.o. daily as needed for pain. 20. Centrum Silver Women tablet, 1 tablet p.o. daily. 21. Fish oil 1000 mg p.o. daily. 22. Prednisone 2.5 mg p.o. daily. 23. Pyridoxine 25 mg p.o. daily. 24. Roflumilast 500 mcg p.o. daily. ALLERGIES: With CEFACLOR, the patient experienced hives. FAMILY HISTORY: The patient's father had a history of AAA and bladder cancer. The patient's mother had coronary artery disease and breast cancer and sister has multiple myeloma. SOCIAL HISTORY: The patient has a history of tobacco abuse. She quit more than 5 years ago. Had a 40-pack year history. No history of alcohol or drug use. Surrogate decision maker is her , Mr Walker Castro, phone number is [phone]. REVIEW OF SYSTEMS: A 14-point review of systems was performed and all the pertinent negative and pos itive findings are in the HPI. PHYSICAL EXAMINATION GENERAL: The patient is an elderly lady, lying in bed, in no acute distress. VITAL SIGNS: Temperature 96.6, heart rate is 89, respiratory rate is 29, oxygen saturation is 94% on 2 L nasal cannula, blood pressure is 173/70. HEENT: Pupils are equal. Moist mucous membranes. CHEST: Breath sounds are bilaterally diminished, but no added sounds. CARDIOVASCULAR: Normal S1, S2. Regular rate and rhythm. ABDOMEN: Soft with severe right upper quadrant tenderness on palpation with positive Holloway sign. N o guarding. No rebound. Bowel sounds are present. The pain radiated to her back and there is no ra sh following a dermatome distribution at this time. EXTREMITIES: No edema. NEUROLOGIC: She is alert and oriented x3. Able to move all 4 extremities. LABORATORY AND IMAGING DATA: The patient had a CBC that showed a WBC of 8.8, hemoglobin of 12.5, he matocrit of 37, platelets of 346 with 72% neutrophils. INR is 0.94 with APTT of 38. Chemistry showe d a sodium 137, potassium 3.8, chloride of 101, bicarb of 28, BUN of 8, creatinine of 0.72, glucose o f 107. Lactic acid 0.9. Calcium is 9.4. Magnesium is 1.8. LFTs showed a total bilirubin of 0.9, T of 107, ALT of 244, alk phos of 177. Ammonia of 58. CRP is 14. Lipase is less than 10. CT of the abdomen and pelvis showed obstructive choledocholithiasis with what appears to be a [address] one obstructing distal common bile duct. Proximally, the common bile duct is dilated up to 1.4 cm in diameter and there is [id number] intrahepatic biliary ductal dilatation. There is coarsely ca lcified atherosclerosis of the lower abdominal aorta extending into the iliofemoral arteries. ASSESSMENT AND PLAN: Mrs. 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 Found to have choledocholithiasis. 1. Sepsis. The patient meets sepsis criteria with tachycardia and tachypnea. The source is biliary in nature. The qSOFA is 1. 2. Choledocholithiasis. I am concerned the patient may develop cholangitis since she is starting to show signs of sepsis. She will be started on Cipro and Flagyl. A GI consultation was requested with Dr. Avery for an ERCP. MRCP was also ordered. For now, she will be kept n.p.o. We are going to stop oral meds and continue only the IV ones especi ally for pain control. We have to keep in mind that the patient is immunosuppressed due to her combined immunodeficiency and she may not be able to mound a classic sepsis response. After the GI workup is completed, we will contact surgery as she would likely benefit from cholecyste ctomy. I am going to stop her oral prednisone and give her stress dose hydrocortisone for now. 3. Chronic obstructive pulmonary disease. It is stable at this time. We will continue her bronchod ilators and inhaled steroids. We will continue her supplemental oxygen. 4. DVT prophylaxis. The patient has a score of 6 on the DVT Prophylaxis Risk Assessment Guide and s he will be started on subcutaneous heparin and SCDs. 5. Code status is full. TIME SPENT: Approximately 55 minutes were spent with the patient's and 's interview, medical records review, physical examination to complete the admission; more than half of this time was spent [id number] with the patient and coordination of care. [id number]/[facility] #: [id number]
[2018-03-21] MEDS: Heparin VIAL(*) 5000 UNITS/ML VIAL (FIVE THOUSAND) SUBCUT SCH (21:41)
[2018-03-21] MEDS: ACLIDINIUM MDI INH SCH (22:40)
--- NOTE | 2018-03-21 22:55 | CONS ---
GASTROENTEROLOGY CONSULT: DATE: 03/21/18 CONSULTING PHYSICIANS: Juan Pearce, Janel Bray, Michael Vargas.* REASON FOR CONSULTATION: Abdominal pain radiating to the back from the right upper quadrant with abnormal LFTs. HISTORY OF PRESENT ILLNESS: This 77-year-old woman with oxygen-dependent COPD from smoking, who has been treated with immunoglobulin infusion by Dr. Paz over the last couple of years after having a bone marrow biopsy in 2012 ( details not available). Had gallstones diagnosed in 2014 and had largely been doing well since that time. This 03/13/18, she had a doughnut and began having some abdominal pain the next day. It was epigastric. There was some vomiting throughout the day on and more on the . She has not vomited since then or run a fever. She was, however, having more pain in the upper abdomen and went to family medicine on Thursday03/19/18. She had tenderness in the upper abdomen, was only taking in small amounts of clear fluids. Her LFTs were elevated that day with ALT 553, alkaline phosphatase 195, bilirubin 1.2. She continued to have right upper quadrant pain. Though the next day, her LFTs were slightly improved with bilirubin now 1.0. Pain, however, has continued to increase and she came to emergency room today. CT scan here shows common duct dilated to 14 mm and a 3-mm stone appearing to be in the distal duct. There was also stone material in the gallbladder. There was extensive vascular calcifications and spinal DJD. Emphysematous changes were seen in the lower lung kapadia. She had abdominal pain consistent with biliary colic in October 2014. Her LFTs are normal at that time. PAST MEDICAL HISTORY: 1. COPD - smoking. 2. Immunodeficiency. She was referred from Dr. Pearce to Dr. Perry to Dr. Vargas to Dr. Paz and now is receiving immunoglobulin treatments since March 2016. She has had reduction in infectious episode and has gained weight. 3. Chronic mild anemia. She had a bone marrow biopsy September 2012. Details unclear. 4. Severe pneumonia, December 2011 with prolonged ICU stay and tracheostomy temporarily. 5. History of SVT - during her ICU stay, she had SVT and was evaluated by Dr. Mccracken. Her says she has never had any kind of cardiac issue before that time. Dr. Kaiser had stopped all her cardiac meds 2 or may be 3 years ago and she is not taking any cardiac meds nor being followed by Cardiology at this time. MEDICATIONS: Dr Bray's H+P reviewed for complete list 1. Many inhalers. 2. Fish oil concentrate. 3. Prednisone 2.5 mg. 4. Sertraline 25 mg. 5. Multivitamin. 6. Oxygen 2 L. 7. Gabapentin. 8. Mobic 7.5 mg. ALLERGIES: CEFACLOR - hives. 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 Her was an elementary computer science teacher. He is her caregiver and keeps detailed notes. REVIEW OF SYSTEMS: No history of TB, hemoptysis, pulmonary masses, seizures, TIA, CVA, DC, valvular disease, hepatitis, renal stones or abdominal surgery. She had a colonoscopy in [address] Zee with no polyps found and her comments that was her first time ever in the hospital or ever having an IV. She has no children. PHYSICAL EXAMINATION: She is an elderly woman in the ER [facility], crying out at intervals with right flank pain, back pain. She is quite uncomfortable, but is not vomiting. Her vital signs are otherwise normal. Blood pressure 173/70 and afebrile. HEENT exam shows no icterus. She has no adenopathy. She has a tracheostomy scar. Breath sounds are quite diminished but symmetrically so. Heart sounds are regular. The abdomen is mild to moderately protuberant with normal bowel sounds throughout. She is tender diffusely. Rectal deferred. Extremities showed no edema. Neurologic, nonfocal though limited given her discomfort. LABS: Hemoglobin 12.5, hematocrit 37, white count 8.8, platelets 346. INR 0.94. Bilirubin 0.90. ALT 344, alkaline phosphatase 177. Ammonia 58. Lipase less than 10. BUN 8, creatinine 0.72. Radiologic review - CT - gallbladder filling defects and gravel and common duct filling defect and 14 mm common duct. Pancreas appears normal. IMPRESSION: This 77-year-old woman with gallstones, has had pain for 6 days. When first seen 2 days ago, her LFTs were up, so clearly a pebble has transited the cystic duct and entered the common duct. Whether it was successfully passed is hard to say. Her clinical course, labs, temperature and probably MRCP will be followed to determine the need for ERCP. [id number]/[facility] #: [id number] SAULO
[2018-03-21] MEDS: metroNIDAZOLE IV 500 MG/100ML* 500 MG/100 ML BAG IVPB SCH (23:04)
[2018-03-22] MEDS: Hydrocortisone INJ* 100 MG VIAL IV SCH ×3 (01:38→23:23)
[2018-03-22] MEDS: HYDROmorphone INJ* 0.5 MG/0.5 ML SYRINGE IV SLOW PU PRN ×3 (03:21→23:18)
[2018-03-22] MEDS: Lactated Ringers 1000 ML Bag* 1,000 ML IV SCH ×2 (05:56→23:28)
[2018-03-22] MEDS: Ciprofloxacin 400MG IVPREMIX(* 400 MG/200 ML BAG IVPB SCH ×2 (05:57→23:32)
[2018-03-22] MEDS: Heparin VIAL(*) 5000 UNITS/ML VIAL (FIVE THOUSAND) SUBCUT SCH ×3 (05:58→23:25)
[2018-03-22] MEDS: LORazepam INJ* 2 MG/ML 1 ML VIAL IV PUSH PRN (06:04)
[2018-03-22 06:06] LABS: ABS Basophils 0 10^3/ul (0-0.2); ABS Eosinophils 0 10^3/ul (0-0.6); ABS Lymphocytes 0.8 10^3/ul (1.0-4.8); ABS Monocytes 0.4 10^3/ul (0-0.8); ABS Neutrophils 9.4 10^3/ul (1.5-7.7); ABS Nucleated RBC 0 10^3/ul; Eosinophil % 0 %; Hematocrit 32 % (35-47); Hemoglobin 10.8 g/dl (12.0-16.0); Lymphocyte % 7.3 %; Mean Corpuscular HGB Conc 34 g/dl (31-36); Mean Corpuscular Hemoglobin 31 pg (27-31); Mean Corpuscular Volume 92 fL (80-97); Mean Platelet Volume 7.1 fL (7.4-10.4); Nucleated Red Blood Cells % 0; Platelet Count 275 10^3/ul (150-450); Red Blood Count 3.49 10^6/ul (4.00-5.40); Red Cell Distribution Width 14 % (10.5-15); White Blood Count 10.5 10^3/ul (3.5-10.8)
[2018-03-22 06:23] LABS: Albumin 3.4 g/dL (3.2-5.2); Albumin/Globulin Ratio 1.3 (1-3); BUN/Creatinine Ratio 13.8 (8-20); Calcium 8.8 mg/dL (8.6-10.3); EGFR Non-African American 101.3 (>60); Globulin 2.7 g/dL (2-4); Potassium 3.8 mmol/L (3.5-5.0); Total Bilirubin 0.8 mg/dL (0.2-1.0); Total Protein 6.1 g/dL (6.4-8.9)
[2018-03-22] MEDS: Mometasone/Formoter 200/5 MDI INH SCH ×2 (08:50→19:46)
[2018-03-22] MEDS: Albuterol HFA INHALER* 8 gm MDI INH PRN (08:51)
[2018-03-22] MEDS ORDERED: Roflumilast (NF) 500 MCG TAB PO SCH (09:00)
[2018-03-22] MEDS: Albuterol/Ipratropium NEB.SOL* Albuterol 2.5 MG/Ipratropium 0.5 MG 3 ML INH PRN ×2 (11:53→23:16)
[2018-03-22] MEDS: ACLIDINIUM MDI INH SCH ×2 (12:36→23:37)
[2018-03-22] MEDS: metroNIDAZOLE IV 500 MG/100ML* 500 MG/100 ML BAG IVPB SCH ×2 (12:56→16:13)
[2018-03-22] MEDS ORDERED: Buffered Lidocaine 0.9% SYRIN* 5 ML/SYR SYRINGE INTRADERM ONE (13:34)
[2018-03-22] MEDS ORDERED: Famotidine IV* 10 MG/ML 2 ML (20 mg) IV ONE (13:34)
[2018-03-22] MEDS ORDERED: Ondansetron INJ* 2 MG/ML VIAL IV ONE (13:34)
--- NOTE | 2018-03-22 13:34 | PN ---
Subjective Date of Service: 03/22/18 Interval History: HOSPITALIST PROGRESS NOTE Patient seen and examined at bedside. Care reviewed and d/w Viktor Reza RN. She continues to have RUQ pain with minimal relief with Dilaudid. Not hungry, passing flatus. Family History: Unchanged from Admission Social History: Unchanged from Admission Past Medical History: Unchanged from Admission Objective Active Medications: Aclidinium [place] (Aj Dong Mdi(Nf)) 1 puff INH BID [facility] Last Admin: 03/22/18 12:36 Dose: Not Given Albuterol (Ventolin Hfa Inhaler*) 2 puff INH QID PRN PRN Reason: SHORTNESS OF BREATH Last Admin: 03/22/18 08:51 Dose: 2 puff Albuterol/Ipratropium (Duoneb (Albuterol 2.5 Mg/Ipratropium 0.5 Mg)) 1 neb INH QID PRN PRN Reason: SHORTNESS OF BREATH Last Admin: 03/22/18 11:53 Dose: 1 neb Heparin Sodium (Porcine) (Heparin Vial(*)) 5,000 units SUBCUT Q8HR [facility] Last Admin: 03/22/18 13:04 Dose: Not Given Hydrocortisone Sodium Succinate (Solu-Cortef*) 50 mg IV Q8H [facility] Last Admin: 03/22/18 10:25 Dose: 50 mg Hydromorphone HCl (Dilaudid Inj*) 1 mg IV SLOW PU Q4H PRN PRN Reason: SEVERE PAIN Last Admin: 03/22/18 10:37 Dose: 1 mg Lactated Ringer's (Lactated Ringers 1000 Ml Bag*) 1,000 mls @ 125 mls/hr IV PER RATE [facility] Last Admin: 03/22/18 05:56 Dose: 125 mls/hr Ciprofloxacin/Dextrose (Cipro 400 Mg Ivpremix(*)) 400 mg in 200 mls @ 200 mls/ hr IVPB Q12H [facility] Last Admin: 03/22/18 05:57 Dose: 200 mls/hr Metronidazole/Sodium Chloride (Flagyl 500 Mg Ivpb*) 500 mg in 100 mls @ 100 mls /hr IVPB 0700,1500,2300 [facility] Last Admin: 03/22/18 12:56 Dose: 100 mls/hr Lorazepam (Ativan Inj*) 0.5 mg IV PUSH Q6H PRN PRN Reason: Severe anxiety Last Admin: 03/22/18 06:04 Dose: 0.5 mg Mometasone Furoate/Formoterol Fumar (Dulera 200/5 Mdi*) 2 puff INH BID [facility] Last Admin: 03/22/18 08:50 Dose: 2 puff Prochlorperazine Edisylate (Compazine Inj*) 5 mg IV Q6H PRN PRN Reason: NAUSEA/VOMITING Vital Signs - 8 hr 03/22/18 03/22/18 03/22/18 05:30 06:04 07:36 Temperature 98.1 F Pulse Rate 78 Respiratory 16 18 16 Rate Blood Pressure 117/43 (mmHg) O2 Sat by Pulse 97 Oximetry 03/22/18 03/22/18 03/22/18 08:00 08:51 10:24 Temperature Pulse Rate 78 Respiratory 18 16 18 Rate Blood Pressure (mmHg) O2 Sat by Pulse 97 Oximetry 03/22/18 03/22/18 03/22/18 10:37 11:53 13:03 Temperature Pulse Rate 75 Respiratory 16 18 18 Rate Blood Pressure (mmHg) O2 Sat by Pulse 97 Oximetry Oxygen Devices in Use Now: Nasal Cannula Appearance: Elderly lady lying in bed in NAD. Eyes: No Scleral Icterus Ears/Nose/Mouth/Throat: Mucous Membranes Moist Neck: Trachea Midline Respiratory: Symmetrical Chest Expansion and Respiratory Effort, Clear to Auscultation Cardiovascular: RRR - Normal S1 and S2 Abdominal: - - Soft, RUQ tenderness, BS+ Neurological: Alert and Oriented x 3, NL Muscle Strength and Tone Result Diagrams: 03/22/18 05:56 03/22/18 05:56 Assess/Plan/Problems-Billing Assessment: Mrs Castro is a 77yo F with PMH of COPD on home O2, combined immunodeficiency , recurrent pneumonias (requiring intubation and trach 2012), h/o DVT/PE, h/o SVT, probable MGUS, who presented to ED with c/o RUQ pain, found to have choledocholithiasis. - Patient Problems (1) Sepsis Comment: - Presentation compatible with sepsis on admission with tachycardia and tachypnea. Developed fever overnight. - qSOFA is 1. - Source is early cholangitis. (2) Choledocholithiasis Comment: - With early cholangitis. - Continue Cipro/Flagyl. - CT and MRCP reviewed, d/w GI - plan for ERCP today. - Will request Surgery consult for possible lap joel this admission. (3) COPD (chronic obstructive pulmonary disease) Comment: - Stable. - Continue bronchodilators and inhaled steroids. (4) DVT prophylaxis Comment: - SQ heparin/SCDs. (5) Full code status
[2018-03-22] MEDS ORDERED: Ondansetron INJ* 2 MG/ML VIAL ONE (13:49)
[2018-03-22] MEDS ORDERED: Famotidine IV* 10 MG/ML 2 ML (20 mg) ONE (13:49)
[2018-03-22] MEDS ORDERED: Lactated Ringers 1000 ML Bag* 1,000 ML IV SCH (14:00)
[2018-03-22] MEDS ORDERED: Midazolam* 1 MG/ML 5 ML VIAL (5 MG) ONE (15:31)
[2018-03-22] MEDS ORDERED: KETAMINE HCL* 50 MG/ML 10 ML VIAL ONE (15:31)
[2018-03-22] MEDS ORDERED: fentaNYL* 50 MCG/ML 2 ML VIAL (100 MCG VIAL) ONE ×2 (15:31→18:49)
[2018-03-22] MEDS ORDERED: Atracurium* 10 MG/ML 10 ML VIAL ONE (15:32)
[2018-03-22] MEDS ORDERED: Neostigmine Methylsulfate* 1 MG/ML 10 ML VIAL (1 mg/ml) ONE (17:12)
[2018-03-22] MEDS ORDERED: Glycopyrrolate IV* 0.2 MG/ML 1 ML VIAL ONE (17:12)
[2018-03-22] MEDS ORDERED: Lidocaine 2% PF * 5 ML VIAL ONE (17:12)
[2018-03-22] MEDS ORDERED: Propofol* 10 MG/ML 20 ML BTL ONE (17:12)
[2018-03-22] MEDS ORDERED: HYDROmorphone INJ1* 1 MG/ML SYRINGE IV PRN (17:17)
[2018-03-22] MEDS ORDERED: Naloxone* 0.4 MG/ML 1 ML VIAL IV PRN (17:17)
[2018-03-22] MEDS ORDERED: DiMENhydriNATE IV* 50 MG/ML VIAL IV PUSH PRN (17:17)
[2018-03-22] MEDS: fentaNYL* 50 MCG/ML 2 ML VIAL (100 MCG VIAL) IV PRN ×4 (18:50→19:35)
[2018-03-23] MEDS: metroNIDAZOLE IV 500 MG/100ML* 500 MG/100 ML BAG IVPB SCH ×4 (01:08→22:44)
[2018-03-23] MEDS: Hydrocortisone INJ* 100 MG VIAL IV SCH ×3 (01:53→18:18)
[2018-03-23] MEDS: HYDROmorphone INJ* 0.5 MG/0.5 ML SYRINGE IV SLOW PU PRN ×2 (04:11→09:29)
[2018-03-23 06:05] LABS: ABS Basophils 0 10^3/ul (0-0.2); ABS Eosinophils 0 10^3/ul (0-0.6); ABS Lymphocytes 0.8 10^3/ul (1.0-4.8); ABS Monocytes 0.8 10^3/ul (0-0.8); ABS Neutrophils 7.7 10^3/ul (1.5-7.7); ABS Nucleated RBC 0 10^3/ul; Eosinophil % 0 %; Hematocrit 30 % (35-47); Lymphocyte % 8.8 %; Mean Corpuscular HGB Conc 34 g/dl (31-36); Mean Corpuscular Hemoglobin 31 pg (27-31); Mean Corpuscular Volume 92 fL (80-97); Mean Platelet Volume 6.8 fL (7.4-10.4); Nucleated Red Blood Cells % 0; Platelet Count 278 10^3/ul (150-450); Red Blood Count 3.22 10^6/ul (4.00-5.40); Red Cell Distribution Width 14 % (10.5-15); White Blood Count 9.4 10^3/ul (3.5-10.8)
[2018-03-23 06:24] LABS: Albumin 3.2 g/dL (3.2-5.2); Albumin/Globulin Ratio 1.2 (1-3); BUN/Creatinine Ratio 18.5 (8-20); C Reactive Protein 132.92 mg/L (<8.01); Calcium 8.6 mg/dL (8.6-10.3); EGFR Non-African American 110.1 (>60); Globulin 2.7 g/dL (2-4); Potassium 3.9 mmol/L (3.5-5.0); Total Bilirubin 0.6 mg/dL (0.2-1.0); Total Protein 5.9 g/dL (6.4-8.9)
[2018-03-23] MEDS: Heparin VIAL(*) 5000 UNITS/ML VIAL (FIVE THOUSAND) SUBCUT SCH (06:24)
[2018-03-23] MEDS: Albuterol HFA INHALER* 8 gm MDI INH PRN (07:39)
[2018-03-23] MEDS: Mometasone/Formoter 200/5 MDI INH SCH ×2 (07:39→19:38)
[2018-03-23] MEDS: ACLIDINIUM MDI INH SCH ×2 (09:28→20:38)
[2018-03-23] MEDS ORDERED: Magnesium Hydroxide LIQ* 30 ML UDC PO PRN (10:42)
[2018-03-23] MEDS: Polyethylene Glycol 3350* 17 GM PACKET PO SCH ×2 (11:31→20:35)
--- NOTE | 2018-03-23 12:08 | PN ---
Subjective Date of Service: 03/23/18 Interval History: HOSPITALIST PROGRESS NOTE Patient seen and examined at bedside. Care reviewed and d/w Viktor Reza RN. She feels much better after ERCP. RUQ pain is resolved, still has some back pain , but this is from her "bad spine" as per . Tolerating clear liquids well , with no N/V. Family History: Unchanged from Admission Social History: Unchanged from Admission Past Medical History: Unchanged from Admission Objective Active Medications: Aclidinium [place] (Aj Dong Mdi(Nf)) 1 puff INH BID [facility] Last Admin: 03/23/18 09:28 Dose: Not Given Albuterol (Ventolin Hfa Inhaler*) 2 puff INH QID PRN PRN Reason: SHORTNESS OF BREATH Last Admin: 03/23/18 07:39 Dose: 2 puff Albuterol/Ipratropium (Duoneb (Albuterol 2.5 Mg/Ipratropium 0.5 Mg)) 1 neb INH QID PRN PRN Reason: SHORTNESS OF BREATH Last Admin: 03/22/18 23:16 Dose: 1 neb Heparin Sodium (Porcine) (Heparin Vial(*)) 5,000 units SUBCUT Q8HR [facility] Last Admin: 03/23/18 06:24 Dose: 5,000 units Hydrocortisone Sodium Succinate (Solu-Cortef*) 50 mg IV Q8H [facility] Last Admin: 03/23/18 11:23 Dose: 50 mg Hydromorphone HCl (Dilaudid Inj*) 1 mg IV SLOW PU Q4H PRN PRN Reason: SEVERE PAIN Last Admin: 03/23/18 09:29 Dose: 1 mg Lactated Ringer's (Lactated Ringers 1000 Ml Bag*) 1,000 mls @ 125 mls/hr IV PER RATE [facility] Last Admin: 03/22/18 23:28 Dose: 125 mls/hr Metronidazole/Sodium Chloride (Flagyl 500 Mg Ivpb*) 500 mg in 100 mls @ 100 mls /hr IVPB 0700,1500,2300 [facility] Last Admin: 03/23/18 09:27 Dose: 100 mls/hr Lactated Ringer's (Lactated Ringers 1000 Ml Bag*) 1,000 mls @ 125 mls/hr IV PER RATE [facility] Ciprofloxacin/Dextrose (Cipro 400 Mg Ivpremix(*)) 400 mg in 200 mls @ 200 mls/ hr IVPB 1130,2330 [facility] Lorazepam (Ativan Inj*) 0.5 mg IV PUSH Q6H PRN PRN Reason: Severe anxiety Last Admin: 03/22/18 06:04 Dose: 0.5 mg Magnesium Hydroxide (Milk Of Magnesia Liq*) 30 ml PO Q6H PRN PRN Reason: CONSTIPATION Mometasone Furoate/Formoterol Fumar (Dulera 200/5 Mdi*) 2 puff INH BID [facility] Last Admin: 03/23/18 07:39 Dose: 2 puff Polyethylene Glycol/Electrolytes (Miralax*) 17 gm PO 0800,2100 [facility] Last Admin: 03/23/18 11:31 Dose: 17 gm Prochlorperazine Edisylate (Compazine Inj*) 5 mg IV Q6H PRN PRN Reason: NAUSEA/VOMITING Vital Signs - 8 hr 03/23/18 03/23/18 03/23/18 04:11 04:25 06:23 Temperature 98.6 F Pulse Rate 79 Respiratory 16 17 16 Rate Blood Pressure 129/46 (mmHg) O2 Sat by Pulse 96 Oximetry 03/23/18 03/23/18 03/23/18 07:19 08:00 09:29 Temperature 98.2 F Pulse Rate 70 Respiratory 20 18 18 Rate Blood Pressure 130/46 (mmHg) O2 Sat by Pulse 97 97 Oximetry 03/23/18 03/23/18 11:18 11:19 Temperature 97.9 F Pulse Rate 66 Respiratory 18 17 Rate Blood Pressure 116/52 (mmHg) O2 Sat by Pulse 98 Oximetry Oxygen Devices in Use Now: Nasal Cannula - 2 liters Appearance: Pleasant elderly lady lying in bed in NAD. Eyes: No Scleral Icterus Ears/Nose/Mouth/Throat: Mucous Membranes Moist Neck: Trachea Midline Respiratory: Symmetrical Chest Expansion and Respiratory Effort, Clear to Auscultation Cardiovascular: RRR - Normal S1 and S2 Abdominal: - - Soft, mild RUQ tenderness, NG, NR< BS+ Neurological: Alert and Oriented x 3, NL Muscle Strength and Tone Result Diagrams: 03/23/18 05:50 03/23/18 05:50 Assess/Plan/Problems-Billing Assessment: Mrs Castro is a 77yo F with PMH of COPD on home O2, combined immunodeficiency , recurrent pneumonias (requiring intubation and trach 2011), h/o DVT/PE, h/o SVT, probable MGUS, who presented to ED with c/o RUQ pain, found to have choledocholithiasis. - Patient Problems (1) Sepsis Comment: - Presentation compatible with sepsis on admission with tachycardia and tachypnea. Developed fever overnight. - qSOFA is 1. - Source is early cholangitis. (2) Choledocholithiasis Comment: - With early cholangitis. - Continue Cipro/Flagyl #3. - s/p ERCP 03/22/18. - Advance diet as tolerated. - Surgery consult appreciated - tentative plan for lap joel as outpatient in the next 1-2 weeks. (3) COPD (chronic obstructive pulmonary disease) Comment: - Stable. - Continue bronchodilators and inhaled steroids. (4) DVT prophylaxis Comment: - SCDs. (5) Full code status
[2018-03-23] MEDS ORDERED: Lactated Ringers 1000 ML Bag* 1,000 ML IV SCH (12:09)
[2018-03-23] MEDS: Ciprofloxacin 400MG IVPREMIX(* 400 MG/200 ML BAG IVPB SCH ×2 (12:48→23:57)
--- NOTE | 2018-03-23 14:08 | PRO ---
DATE: 03/22/18 - ROOM #[id number] REFERRING PHYSICIAN: Dr. Juan Pearce.* PROCEDURE: ERCP with sphincterotomy and balloon extraction of common bile duct stones, three, 3 to 5 mm. INDICATION: This 77-year-old woman was admitted through the emergency room yesterday with elevated LFTs and abdominal pain consistent with biliary colic, has had continued pain. Her liver function tests have slightly improved. MRCP today suggested continued obstruction to the common bile duct with small stones. Informed consent was obtained with the patient's present and going over a diagram of the relevant anatomy. All questions were answered. Risks were reviewed and questions answered. ENDOSCOPIST: Dr. Avery. ANESTHESIA: Dr. Marin. FINDINGS: She is an elderly woman, not febrile at this time. She is on antibiotics. She was positioned in a semi-prone position. ERCP: Esophagus - 20% views were normal. Stomach - 60% to 70% views were normal during insertion and withdrawal. Pylorus appeared normal. Duodenum - generally normal contours. Papilla - generous in size, symmetric, with no bile obviously leaking. There were no diverticula. A sphincterotome in a semi-inclined position was used to approach the top of the papilla and lifted gently. The cannula went in a vertical position, but then veered off in a pancreatic orientation. This happened several times with the cannulating wire. A position more towards in the 11 o'clock position, more deeply bowed and lifting did appear to be going in a different direction. A preliminary dye injection did opacify the common duct. Position was lost, but going back to the same position, a guidewire did go into the common duct and then a free cannulation was obtained. The wire was deeply seated and locked. Dye injection did disclose some filling defects bouncing in the distal duct. The sphincterotome was positioned and a 12 mm cut made in an approximately 1 o' clock orientation. Bile spilled freely. There was some minimal bleeding from the edge of the sphincterotomy cut that stopped and then restarted with balloon passage. There was a very minimal stream. A second balloon withdrawal resulted in capture of 3, somewhat irregular, granular stones. A balloon occlusion cholangiogram was negative. Two such studies were done and the dye drained readily and quickly. Procedure was terminated. IMPRESSION: 1. Generally normal views, limited of the upper gastrointestinal tract. 2. Status post endoscopic sphincterotomy. 3. Common bile duct stones - delivered - the patient will be kept off heparin for 48 hours. [id number]/[facility] #: [id number] MTDD
--- NOTE | 2018-03-23 16:36 | CONS ---
CC: Dr. Pearce; Dr. Mannie Avery * CONSULTATION REPORT: DATE OF CONSULT: 03/23/18 REFERRING PROVIDER: Dr. Mannie Avery. PRIMARY CARE PROVIDER: Dr. Pearce. REASON FOR CONSULT: Choledocholithiasis status post ERCP. HISTORY OF PRESENT ILLNESS: Ms. Castro is a 77-year-old woman with multiple medical issues including severe COPD, on home oxygen; with a history of frequent pneumonias; and a combined immunodeficiency disorder, receiving immunoglobulin, presented to the emergency room several days ago with severe right upper quadrant abdominal and back discomfort. She states that around [place] time, she developed some nausea and vomiting and subsequently developed a right upper quadrant abdominal pain several days later. She had some noted depth and elevation of her total bilirubin, AST, and ALT, but a normal amylase and lipase. These symptoms worsened and with the trending upwards of her liver transaminases, she presented to the emergency room. In the emergency room, she was noted to have a normal white blood cell count. She was noted to have a normal total bilirubin with elevated AST and ALT and alkaline phosphatase into the 100s. Lipase was normal. A CT scan of the abdomen and pelvis showed obstructive choledocholithiasis with a distal common bile duct stone. This was confirmed with an MRCP done yesterday. Yesterday, she underwent an ERCP with Dr. Avery with the stone removal which she tolerated well. Surgical consultation was obtained. PAST MEDICAL HISTORY: 1. COPD, on home O2. 2. History of recurrent bronchitis. 3. History of DVT and PE. 4. Paroxysmal SVT. 5. Anxiety/depression. 6. Combined immunodeficiency, receiving immunoglobulin weekly. 7. Probable MGUS. 8. History of chololithiasis. PAST SURGICAL HISTORY: Right rotator cuff repair. She has not had abdominal surgery in the past. MEDICATIONS: Multiple medicines including prednisone 2.5 mg daily. ALLERGIES: CEFACLOR. SOCIAL HISTORY: She has a history of tobacco abuse. She quit more than 5 years ago. She does not use alcohol or drugs. She is and lives with her . PHYSICAL EXAM: Temperature 98.6, pulse 79, blood pressure 129/46. In general, she is a well developed, slender female, appears to be somewhat fatigued. Lungs are clear to auscultation with diminished breath sounds throughout. Heart is regular rate and rhythm. Abdomen is soft, nondistended. No prior surgical incisions or hernia. She has diminished bowel sounds throughout. There is no tenderness present. IMPRESSION: 1. Choledocholithiasis status post endoscopic retrograde cholangiopancreatography by Dr. Avery with the stone retrieval. She does have gallstones within the gallbladder as shown by ultrasound. 2. Multiple medical problems as outlined above. She will require a laparoscopic cholecystectomy to prevent further recurrence and passage of gallstones. She has multiple medical issues and she will need a complete medical evaluation. Timing is difficult at this point as to the optimal time to proceed with laparoscopic cholecystectomy as she has been ill for a week prior to admission and it may be prudent for her to be discharged home to return in a short period of time for an outpatient laparoscopic cholecystectomy after she is cleared medically. All of the above was discussed with the patient and her . We will follow her closely with you. [id number]/[facility] #: [id number]
[2018-03-24] MEDS: Hydrocortisone INJ* 100 MG VIAL IV SCH ×2 (02:14→10:22)
[2018-03-24] MEDS: LORazepam INJ* 2 MG/ML 1 ML VIAL IV PUSH PRN (02:26)
[2018-03-24] MEDS: metroNIDAZOLE IV 500 MG/100ML* 500 MG/100 ML BAG IVPB SCH ×3 (06:43→23:20)
[2018-03-24] MEDS: Polyethylene Glycol 3350* 17 GM PACKET PO SCH ×2 (07:06→20:53)
[2018-03-24] MEDS: Mometasone/Formoter 200/5 MDI INH SCH ×2 (08:09→19:12)
[2018-03-24] MEDS: Albuterol HFA INHALER* 8 gm MDI INH PRN (08:10)
[2018-03-24] MEDS: ACLIDINIUM MDI INH SCH ×2 (08:34→20:52)
[2018-03-24] MEDS: Ciprofloxacin 400MG IVPREMIX(* 400 MG/200 ML BAG IVPB SCH (11:53)
--- NOTE | 2018-03-24 12:50 | PN ---
Subjective Date of Service: 03/24/18 Interval History: HOSPITALIST PROGRESS NOTE Patient seen and examined at bedside. Care reviewed and d/w Gloria Nickerson RN. She feels better today. Still has some right sided pain, but much improved. Tolerating diet. Feels weak and was unable to get out of bed in time after using laxatives, so she was incontinent in bed. Family History: Unchanged from Admission Social History: Unchanged from Admission Past Medical History: Unchanged from Admission Objective Active Medications: Aclidinium [place] (Aj Dong Mdi(Nf)) 1 puff INH BID [facility] Last Admin: 03/24/18 08:34 Dose: Not Given Albuterol (Ventolin Hfa Inhaler*) 2 puff INH QID PRN PRN Reason: SHORTNESS OF BREATH Last Admin: 03/24/18 08:10 Dose: 2 puff Albuterol/Ipratropium (Duoneb (Albuterol 2.5 Mg/Ipratropium 0.5 Mg)) 1 neb INH QID PRN PRN Reason: SHORTNESS OF BREATH Last Admin: 03/22/18 23:16 Dose: 1 neb Hydrocortisone Sodium Succinate (Solu-Cortef*) 50 mg IV Q8H [facility] Last Admin: 03/24/18 10:22 Dose: 50 mg Hydromorphone HCl (Dilaudid Inj*) 1 mg IV SLOW PU Q4H PRN PRN Reason: SEVERE PAIN Last Admin: 03/23/18 09:29 Dose: 1 mg Metronidazole/Sodium Chloride (Flagyl 500 Mg Ivpb*) 500 mg in 100 mls @ 100 mls /hr IVPB 0700,1500,2300 [facility] Last Admin: 03/24/18 06:43 Dose: 100 mls/hr Ciprofloxacin/Dextrose (Cipro 400 Mg Ivpremix(*)) 400 mg in 200 mls @ 200 mls/ hr IVPB 1130,2330 [facility] Last Admin: 03/24/18 11:53 Dose: 200 mls/hr Lorazepam (Ativan Inj*) 0.5 mg IV PUSH Q6H PRN PRN Reason: Severe anxiety Last Admin: 03/24/18 02:26 Dose: 0.5 mg Magnesium Hydroxide (Milk Of Magnesia Liq*) 30 ml PO Q6H PRN PRN Reason: CONSTIPATION Mometasone Furoate/Formoterol Fumar (Dulera 200/5 Mdi*) 2 puff INH BID [facility] Last Admin: 03/24/18 08:09 Dose: 2 puff Polyethylene Glycol/Electrolytes (Miralax*) 17 gm PO 0800,2100 [facility] Last Admin: 03/24/18 07:06 Dose: Not Given Prochlorperazine Edisylate (Compazine Inj*) 5 mg IV Q6H PRN PRN Reason: NAUSEA/VOMITING Vital Signs - 8 hr 03/24/18 03/24/18 03/24/18 07:11 07:26 08:10 Temperature 98.9 F Pulse Rate 78 80 Respiratory 24 14 18 Rate Blood Pressure 133/57 (mmHg) O2 Sat by Pulse 98 97 98 Oximetry 03/24/18 11:10 Temperature 98.4 F Pulse Rate 76 Respiratory 14 Rate Blood Pressure 106/44 (mmHg) O2 Sat by Pulse 97 Oximetry Oxygen Devices in Use Now: Nasal Cannula - 2 liters Appearance: Pleasant lady sitting up in a recliner in NAD. Eyes: No Scleral Icterus Ears/Nose/Mouth/Throat: Mucous Membranes Moist Neck: Trachea Midline Respiratory: Symmetrical Chest Expansion and Respiratory Effort, - - BS+ bilaterally diminished with no added sounds Cardiovascular: RRR - Normal S1 and S2 Abdominal: - - Soft, mild RUQ tenderness, NG, NR, BS+ Neurological: Alert and Oriented x 3, NL Muscle Strength and Tone Result Diagrams: 03/23/18 05:50 03/23/18 05:50 Assess/Plan/Problems-Billing Assessment: Mrs Castro is a 77yo F with PMH of COPD on home O2, combined immunodeficiency , recurrent pneumonias (requiring intubation and trach 2012), h/o DVT/PE, h/o SVT, probable MGUS, who presented to ED with c/o RUQ pain, found to have choledocholithiasis. - Patient Problems (1) Sepsis Comment: - Presentation compatible with sepsis on admission with tachycardia and tachypnea. Developed fever overnight. - qSOFA is 1. - Source is early cholangitis. (2) Choledocholithiasis Comment: - With early cholangitis. - Continue Cipro/Flagyl #4. - s/p ERCP 03/22/18. - Advance diet as tolerated. - Surgery consult appreciated - tentative plan for lap joel as outpatient in the next 1-2 weeks. (3) Combined immunodeficiency disorder Comment: - D/w Dr Paz - recommended holding off on Gamaglobulin in the setting of acute infection, as it may exacerbate inflammatory process, but should be able to resume it next week. (4) COPD (chronic obstructive pulmonary disease) Comment: - Stable. - Continue bronchodilators and inhaled steroids. (5) DVT prophylaxis Comment: - SCDs. (6) Physical deconditioning Comment: - PT consult. (7) Full code status
--- NOTE | 2018-03-24 17:28 | PN ---
Progress Note - Progress Note Date of Service: 03/24/18 SOAP: Subjective: Patient seen at 1315 today She is weak and taking only liquids po. Back pain persists No more nausea or vomiting Objective: Temp Pulse Resp BP Pulse Ox 98.4 F 76 14 106/44 97 03/24/18 11:10 03/24/18 11:10 03/24/18 11:10 03/24/18 11:10 03/24/18 11:10 PEX: Abdomen is soft and non-distended. Mild upper tenderness Assessment: Choledocholithiasis s/p ERCP Cholangitis-resolved Plan: Lap choly as outpatient-will see in office on discharge and plan surgery.
[2018-03-25] MEDS: Ciprofloxacin 400MG IVPREMIX(* 400 MG/200 ML BAG IVPB SCH ×2 (00:30→12:33)
[2018-03-25] MEDS: Albuterol HFA INHALER* 8 gm MDI INH PRN (05:09)
[2018-03-25] MEDS: metroNIDAZOLE IV 500 MG/100ML* 500 MG/100 ML BAG IVPB SCH (06:38)
[2018-03-25] MEDS: ACLIDINIUM MDI INH SCH ×3 (08:31→19:14)
[2018-03-25] MEDS: Polyethylene Glycol 3350* 17 GM PACKET PO SCH ×2 (08:32→22:12)
[2018-03-25] MEDS: Albuterol/Ipratropium NEB.SOL* Albuterol 2.5 MG/Ipratropium 0.5 MG 3 ML INH PRN (08:37)
[2018-03-25] MEDS: Mometasone/Formoter 200/5 MDI INH SCH ×2 (08:40→19:05)
[2018-03-25] MEDS: Albuterol/Ipratropium NEB.SOL* Albuterol 2.5 MG/Ipratropium 0.5 MG 3 ML INH SCH ×3 (09:04→19:20)
[2018-03-25] MEDS: Gabapentin CAP(*) 300 MG PO SCH ×2 (09:10→22:18)
[2018-03-25] MEDS: predniSONE TAB* 5 MG PO SCH (09:11)
--- NOTE | 2018-03-25 12:38 | PN ---
Subjective Date of Service: 03/25/18 Interval History: HOSPITALIST PROGRESS NOTE Patient seen and examined at bedside. Care reviewed and d/w Matt Tovar RN. She doesn't feel well today. Did not sleep well last night, breathing is getting a little harder. Abdominal pain is much improved, but appetite has not improved. Diarrhea is improved. Family History: Unchanged from Admission Social History: Unchanged from Admission Past Medical History: Unchanged from Admission Objective Active Medications: Aclidinium [place] (Aj Dong Mdi(Nf)) 1 puff INH RT.BID [facility] Last Admin: 03/25/18 09:13 Dose: 1 puff Albuterol (Ventolin Hfa Inhaler*) 2 puff INH QID PRN PRN Reason: SHORTNESS OF BREATH Last Admin: 03/25/18 05:09 Dose: 2 puff Albuterol/Ipratropium (Duoneb (Albuterol 2.5 Mg/Ipratropium 0.5 Mg)) 1 neb INH QID PRN PRN Reason: SHORTNESS OF BREATH Last Admin: 03/25/18 08:37 Dose: 1 neb Albuterol/Ipratropium (Duoneb (Albuterol 2.5 Mg/Ipratropium 0.5 Mg)) 1 neb INH BID [facility] Last Admin: 03/25/18 09:04 Dose: Not Given Ciprofloxacin (Cipro Tab*) 500 mg PO Q12H [facility] Gabapentin (Neurontin Cap(*)) 300 mg PO BID [facility] Last Admin: 03/25/18 09:10 Dose: 300 mg Hydromorphone HCl (Dilaudid Inj*) 1 mg IV SLOW PU Q4H PRN PRN Reason: SEVERE PAIN Last Admin: 03/23/18 09:29 Dose: 1 mg Metronidazole/Sodium Chloride (Flagyl 500 Mg Ivpb*) 500 mg in 100 mls @ 100 mls /hr IVPB 0700,1500,2300 [facility] Last Admin: 03/25/18 06:38 Dose: 100 mls/hr Ciprofloxacin/Dextrose (Cipro 400 Mg Ivpremix(*)) 400 mg in 200 mls @ 200 mls/ hr IVPB 1130,2330 [facility] Last Admin: 03/25/18 00:30 Dose: 200 mls/hr Lorazepam (Ativan Inj*) 0.5 mg IV PUSH Q6H PRN PRN Reason: Severe anxiety Last Admin: 03/24/18 02:26 Dose: 0.5 mg Magnesium Hydroxide (Milk Of Magnesia Liq*) 30 ml PO Q6H PRN PRN Reason: CONSTIPATION Metronidazole (Flagyl Tab*) 500 mg PO Q8H [facility] Mometasone Furoate/Formoterol Fumar (Dulera 200/5 Mdi*) 2 puff INH BID [facility] Last Admin: 03/25/18 08:40 Dose: 2 puff Polyethylene Glycol/Electrolytes (Miralax*) 17 gm PO 0800,2100 [facility] Last Admin: 03/25/18 08:32 Dose: Not Given Prednisone (Deltasone Tab*) 5 mg PO DAILY [facility] Last Admin: 03/25/18 09:11 Dose: 5 mg Prochlorperazine Edisylate (Compazine Inj*) 5 mg IV Q6H PRN PRN Reason: NAUSEA/VOMITING Vital Signs - 8 hr 03/25/18 03/25/18 03/25/18 05:10 07:18 08:00 Temperature 98.9 F Pulse Rate 78 63 Respiratory 24 17 18 Rate Blood Pressure 139/41 (mmHg) O2 Sat by Pulse 97 100 98 Oximetry 03/25/18 03/25/18 08:41 09:10 Temperature Pulse Rate 64 Respiratory 20 18 Rate Blood Pressure (mmHg) O2 Sat by Pulse 98 Oximetry Oxygen Devices in Use Now: Nasal Cannula - 2 liters Appearance: Pleasant elderly lady sitting up in bed in [facility]. Eyes: No Scleral Icterus Ears/Nose/Mouth/Throat: Mucous Membranes Moist Neck: Trachea Midline Respiratory: Symmetrical Chest Expansion and Respiratory Effort, - - BS+ bilaterally diminished, no added sounds Cardiovascular: RRR - Normal S1 and S2 Abdominal: - - Soft, mild RUQ tenderness, NG, NR, BS+ Neurological: Alert and Oriented x 3, NL Muscle Strength and Tone Result Diagrams: 03/23/18 05:50 03/23/18 05:50 Assess/Plan/Problems-Billing Assessment: Mrs Castro is a 77yo F with PMH of COPD on home O2, combined immunodeficiency , recurrent pneumonias (requiring intubation and trach 2012), h/o DVT/PE, h/o SVT, probable MGUS, who presented to ED with c/o RUQ pain, found to have choledocholithiasis. - Patient Problems (1) Sepsis Comment: - Presentation compatible with sepsis on admission with tachycardia and tachypnea. Developed fever overnight. - qSOFA is 1. - Source was cholangitis. (2) Choledocholithiasis Comment: - With cholangitis - now resolved. - Continue Cipro/Flagyl #5, but will change to PO. - s/p ERCP 03/22/18. - Tolerating low fat diet well. - Surgery f/u appreciated - tentative plan for lap joel as outpatient in the next 1-2 weeks. (3) Combined immunodeficiency disorder Comment: - D/w Dr Paz - recommended holding off on Gamaglobulin in the setting of acute infection, as it may exacerbate inflammatory process, but should be able to resume it next week. (4) COPD (chronic obstructive pulmonary disease) Comment: - Stable, no exacerbation, but has high risk for pulmonary complications with surgery. Should be seen by PCP before returning for surgery to make sure her COPD is optmized prior to procedure. - Continue bronchodilators and inhaled steroids. (5) DVT prophylaxis Comment: - SCDs and resume SQ heparin. (6) Full code status Status and Disposition: Anticipate d/c in AM if she continues to improve.
--- NOTE | 2018-03-25 12:42 | PN ---
Progress Note - Progress Note Date of Service: 03/25/18 SOAP: Subjective:poor appetite,denies abd pain,no n/v,mild back pain [] Objective: Temp Pulse Resp BP Pulse Ox 98.9 F 64 18 139/41 98 03/25/18 07:18 03/25/18 08:41 03/25/18 12:33 03/25/18 07:18 03/25/18 08:41 abd:+bs,soft,nontender,neg Holloway's sign [] Assessment:choledocholithiasis s/p ERCP cholangitis resolved [] Plan:she thinks she may be discharged by Hospitalist tomorrow;she will followup with Dr Hope as outpt and planning for lap joel []
[2018-03-25] MEDS: Ciprofloxacin TAB* 500 MG PO SCH ×2 (12:46→22:34)
[2018-03-25] MEDS: metroNIDAZOLE TAB* 250 MG PO SCH ×2 (14:04→22:18)
[2018-03-25] MEDS ORDERED: Acetaminophen TAB* 325 MG PO PRN (16:58)
[2018-03-25] MEDS: Heparin VIAL(*) 5000 UNITS/ML VIAL (FIVE THOUSAND) SUBCUT SCH (22:17)
[2018-03-25] MEDS: LORazepam INJ* 2 MG/ML 1 ML VIAL IV PUSH PRN (22:33)
[2018-03-26] MEDS: Heparin VIAL(*) 5000 UNITS/ML VIAL (FIVE THOUSAND) SUBCUT SCH (06:18)
[2018-03-26] MEDS: Albuterol/Ipratropium NEB.SOL* Albuterol 2.5 MG/Ipratropium 0.5 MG 3 ML INH SCH (07:05)
[2018-03-26] MEDS: Mometasone/Formoter 200/5 MDI INH SCH (07:06)
[2018-03-26] MEDS: ACLIDINIUM MDI INH SCH (07:10)
[2018-03-26 08:41] VITALS: BP 148/50
[2018-03-26] MEDS: Polyethylene Glycol 3350* 17 GM PACKET PO SCH (09:22)
[2018-03-26] MEDS: Gabapentin CAP(*) 300 MG PO SCH (09:54)
[2018-03-26] MEDS: predniSONE TAB* 5 MG PO SCH (09:54)
[2018-03-26] MEDS: Ciprofloxacin TAB* 500 MG PO SCH (09:55)
[2018-03-26] MEDS: metroNIDAZOLE TAB* 250 MG PO SCH (09:55)
--- NOTE | 2018-03-26 22:31 | DS ---
CC: Dr. Janel Bray; Dr. Roge Pollack; Dr. Mannie Avery; Dr. Juan Pearce DISCHARGE SUMMARY: DATE OF ADMISSION: DATE OF DISCHARGE: 03/26/18 DISCHARGE DIAGNOSES: As follows: 1. Sepsis secondary to choledocholithiasis, resolved, status post ERCP with sphincterotomy and ballo on extraction of CBD stones. 2. Combined immunodeficiency, history of. 3. Chronic obstructive pulmonary disease, history of. DISCHARGE MEDICATIONS: As follows: 1. Tylenol 650 mg p.o. q.6 p.r.n. 2. Tudorza Pressair 400 mcg inhalation b.i.d. 3. Albuterol inhalation 2 puffs inhalation 4 times a day p.r.n. 4. Albuterol/ipratropium nebulization inhalation 4 times a day 1 nebulization. 5. Ciprofloxacin 500 mg p.o. b.i.d. for 4 more days. 6. Advair Diskus 500/50 one puff inhalation b.i.d. 7. Gabapentin 300 mg capsule p.o. b.i.d. 8. Flagyl 500 mg p.o. t.i.d. for 4 more days. 9. Ascorbic acid 1000 mg p.o. q.a.m. 10. Vitamin supplementations 1 tablet p.o. daily. 11. Cholecalciferol 1000 units p.o. daily. 12. Cyanocobalamin 1000 mcg p.o. daily. 13. Ferrous sulfate 325 mg p.o. daily. 14. Garlic 2 mg p.o. daily. 15. Osteo Bi-Flex 1 tablet p.o. daily. 16. Guaifenesin 800 mg p.o. daily. 17. The patient has been instructed to hold off on gammaglobulins until next week. 18. Probiotic 1 cap p.o. b.i.d. 19. Lorazepam 0.5 mg p.o. q.8 p.r.n. 20. Lutein 20 mg p.o. daily. 21. Meloxicam 7.5 mg p.o. daily. 22. Salmon-3 fatty acid 1000 p.o. daily. 23. Prednisone 2.5 mg p.o. daily. 24. Pyridoxine 25 mg p.o. daily. 25. Roflumilast 500 mcg p.o. daily. HISTORY OF PRESENT ILLNESS/HOSPITAL COURSE: The patient is a 77-year-old lady with history of COPD, on home O2 with previous history of frequent bronchitis and pneumonia, history of DVT and PE as well as paroxysmal SVT, who was admitted secondary to abdominal pain, thought to be due to choledocholithi asis as seen in the abdominal and pelvic CT. She had an ERCP done by Dr. Avery on 03/22/18 and she underwent sphincterotomy as well as balloon extraction of her CBD stones. She has done well and was continued on IV antibiotic therapy. She is to complete 4 more days to complete a 10-day treatment t herapy with ciprofloxacin and Flagyl. Her LFTs has been improving and tolerates a low-fat diet. She has also been seen in consultation by Dr. Hope, who wants to see her in about 1 to 2 weeks post discharge. She also underwent ambulatory saturation test and has done well on her baseline 2 L nasal cannula at home. She had been advised to follow up and/or call her PCP within 3 days post discharge and to follow up w annmarie Hope in 1 to 2 weeks and to call his office to make/confirm an appointment. She was adv ised that if her symptoms resume or develop new ones or feel unwell for any reason to call her PCP fi rst. If her PCP cannot entertain her due to scheduling issues alone to call [facility] if t he issue is nonemergent. She was advised continue to hold gammaglobulin until next week and she was advised to call my office regarding any questions, concerns, or further clarifications regarding her discharge plans and/or prescriptions and to take her medications as prescribed. REVIEW OF SYSTEMS: The patient current denies any recent headaches, dizziness, fevers, chills, nause a, vomiting, chest pain, shortness of breath, increased coughing or sputum production, abdominal pain , diarrhea, constipation, pain and/or increased frequency on urination, myalgias or arthralgias, thro at pain, or new skin lesions. The rest of the 14-point review of systems is otherwise unremarkable. PHYSICAL EXAMINATION: Reveals the most recent vital signs of records with blood pressure of 148/50 f rom previous 147/78, saturating at 97% at 2 L nasal cannula with ambulation, 16 per minute respirator y rate. General Appearance: The patient is awake, alert, and oriented x3, not in acute distress. H EENT: Normocephalic, atraumatic. PERRLA. Extraocular muscles intact. Negative for icterus. Moist oral mucosa. Negative throat erythema. Neck is soft, supple with no cervical lymphadenopathy, no J VD. Heart: S1, S2 within normal limits. Regular rate and rhythm. No murmurs, rubs, or gallops. C hest: Clear to auscultation bilaterally. Good air entry. No wheezes, rales, or rhonchi. Abdomen is soft, nondistended, nontender. Normoactive bowel sounds x4 quadrants. Extremities: No cyanosis, c lubbing, or edema. Psychiatric: No active psychosis, depression, suicidal or homicidal ideations. Skin is warm to touch. TIME SPENT: The total time spent evaluating the patient, reviewing pertinent data, and appropriate d ocumentation is 55 minutes. [id number]/[facility] #: [id number]
== END 2018-03-26 15:15 | DRG 872 ==
LOC: ED 10:56 → SSU 16:46
PROVIDERS: ADMIT Internal Medicine; ATTEND Internal Medicine
PROC: 0FC98ZZ Extirpation of Matter from Common Bile Duct, Via Natural or Artificial Opening Endoscopic (ICD-10-PCS; principal; 2018-03-22 14:00)
DX: A41.9 Sepsis, unspecified organism (principal); K80.71 Calculus of gallbladder and bile duct without cholecystitis with obstruction; D81.89 Other combined immunodeficiencies; J44.9 Chronic obstructive pulmonary disease, unspecified; F41.9 Anxiety disorder, unspecified; F32.9 Major depressive disorder, single episode, unspecified; M19.90 Unspecified osteoarthritis, unspecified site; D64.9 Anemia, unspecified; Z99.81 Dependence on supplemental oxygen; Z87.01 Personal history of pneumonia (recurrent); Z86.718 Personal history of other venous thrombosis and embolism; Z86.711 Personal history of pulmonary embolism; Z80.52 Family history of malignant neoplasm of bladder; Z82.49 Family history of ischemic heart disease and other diseases of the circulatory system; Z80.3 Family history of malignant neoplasm of breast; Z87.891 Personal history of nicotine dependence; Z80.8 Family history of malignant neoplasm of other organs or systems; Z88.8 Allergy status to other drugs, medicaments and biological substances; Z79.52 Long term (current) use of systemic steroids
CPT/HCPCS: 36415; 74177; 74181; 74328; 76376; 76705; 80053; 82140; 83605; 83690; 83735; 85025; 85610; 85730; 86140; 94640; 99283; A9270-GY; C1769; G8978-GP-CJ; G8979-GP-CI; J0744; J1170; J1644; J1720; J2060; J2250; J2270; J2405; J2704; J2710; J3010; J3360; J3475; J3490; J7512; Q9967

== ENCOUNTER → 2018-05-10 09:52 | Day surgery (SDC) | payer MEDICARE, OTHER ==
[~2018-05-10 09:52] MED LIST: Acetaminophen IV 1GM/100ML * 1,000 MG/100 ML VIAL IVPB ONE; Acetaminophen IV 1GM/100ML * 100 ML ONE; Albuterol/Ipratropium NEB.SOL* Albuterol 2.5 MG/Ipratropium 0.5 MG 3 ML ONE; Buffered Lidocaine 1% SYRIN* 1 ML/SYRINGE INTRADERM ONE; Bupivacaine 0.25% W/EPI* 10 ML SDV ONE; Cisatracurium* 2 MG/ML MDV 5 ML ONE; Dexamethasone IV* 4 MG/ML 1 ML (4 MG) ONE; Famotidine IV* 10 MG/ML 2 ML (20 mg) IV ONE; Famotidine IV* 10 MG/ML 2 ML (20 mg) ONE; Glycopyrrolate IV* 0.2 MG/ML 1 ML VIAL ONE; Ketorolac INJ* 30 MG/ML 1 ML VIAL ONE; Lactated Ringers 1000 ML Bag* 1,000 ML IV SCH; Levalbuterol 0.63MG/3ML NEB* UNIT OF USE INH ONE; Lidocaine 2% PF * 5 ML VIAL ONE; Midazolam* 1 MG/ML 5 ML VIAL (5 MG) ONE; Naloxone* 0.4 MG/ML 1 ML VIAL IV PRN; Neostigmine Methylsulfate* 1 MG/ML 10 ML VIAL (1 mg/ml) ONE; Ondansetron INJ* 2 MG/ML VIAL IV PRN; Ondansetron INJ* 2 MG/ML VIAL ONE; Phenylephrine INJ* 10 MG/ML 1 ML VIAL (10 MG) ONE; Propofol* 10 MG/ML 20 ML BTL ONE; ceFAZolin 2 GM PREMIX in ORs 0 GM/0 ML BAG IVPB ONE; fentaNYL* 50 MCG/ML 2 ML VIAL (100 MCG VIAL) ONE
[2018-05-10] MEDS: fentaNYL* 50 MCG/ML 2 ML VIAL (100 MCG VIAL) IV PRN ×2 (15:35→15:40)
[2018-05-10 16:19] VITALS: BP 134/59
--- NOTE | 2018-05-10 23:47 | OP ---
CC: Dr. Hines from Pulmonology; Dr. Juan Pearce; Dr. Mane Paz, Allergy.* DATE OF OPERATION: 05/10/18 - SDS DATE OF : 44 SURGEON: Jesse Hope MD PIPE FITTER GAS PIPE: John Eng MD ANESTHESIOLOGIST: Dr. Wilder. ANESTHESIA: General with local. PRE-OP DIAGNOSIS: Cholelithiasis with history of choledocholithiasis, status post endoscopic retrograde cholangiopancreatography. POST-OP DIAGNOSIS: Cholelithiasis with history of choledocholithiasis, status post endoscopic retrograde cholangiopancreatography. OPERATIVE PROCEDURE: Laparoscopic cholecystectomy. ESTIMATED BLOOD LOSS: Minimal. WOUND CLASSIFICATION: II. COMPLICATIONS: None. DRAINS: None. IV FLUIDS: Minimal. SPECIMENS: Gallbladder. DESCRIPTION OF PROCEDURE: Written informed consent was obtained, preoperative antibiotics were not administered, and the abdomen was marked with indelible ink. The patient was taken to the operating room and placed in the supine position. Sequential compression devices and a warming blanket were applied. Anesthesia was administered and the abdomen was prepped and draped in usual sterile fashion. A time-out verification was completed. A small horizontal incision was made just above the umbilicus at the midline. The peritoneal cavity was entered under direct vision. The abdomen was insufflated to 12 mmHg. Under direct vision, an 11 mm epigastric port was placed and two 5 mm ports were placed on the right side of the abdominal wall. There were several adhesions from the omentum to the anterior abdominal wall, which were taken down sharply to expose the gallbladder and the liver. The liver appeared to be unremarkable. The gallbladder was mildly distended, but without evidence of acute or chronic inflammation and was easily grasped and elevated up over the liver bed. With care, the infundibulum area was identified and the peritoneum along the medial and lateral aspects of the gallbladder was divided and taken down to expose the cystic artery and duct as I entered the gallbladder. I took a considerable portion of the inferior part of the gallbladder off the liver bed using the critical view technique to assure myself of these structures. The cystic duct was abnormal and expected caliber and it was triply clipped and divided. Likewise, the cystic artery was doubly clipped and divided. The gallbladder was removed from the liver bed using cautery and brought out through the umbilical incision in an EndoCatch bag. Hemostasis was assured along the liver bed and the right upper quadrant was irrigated with saline. When this was complete, all ports were removed under direct vision of the camera. The umbilical fascia was closed with interrupted 0 Vicryl suture. The skin at all 4 incisions was approximated with a subcuticular 4-0 Vicryl suture. Steri-Strips were applied. The patient tolerated the procedure well, was taken to the recovery room in stable condition. [id number]/[facility] #: [id number] SAULO
== END | disposition home or self-care (01) ==
LOC: OR 09:52
PROVIDERS: ATTEND Surgery
DX: K80.61 Calculus of gallbladder and bile duct with cholecystitis, unspecified, with obstruction (principal); J30.9 Allergic rhinitis, unspecified; J43.9 Emphysema, unspecified; M54.5 Low back pain; Z88.8 Allergy status to other drugs, medicaments and biological substances; Z87.891 Personal history of nicotine dependence
CPT/HCPCS: 88304; A9270-GY; J0690; J1100; J1885; J2250; J2405; J2704; J2710; J3010

== ENCOUNTER 2018-05-12 15:02 | Observation (INO) | payer MEDICARE, OTHER ==
[2018-05-12] MEDS ORDERED: NS 0.9% 1000 ML** 1,000 ML IV ONE (15:42)
[2018-05-12] MEDS ORDERED: Morphine VIAL* 4 MG/ML VIAL (1 ml vial) IV ONE ×2 (15:44→17:54)
--- NOTE | 2018-05-12 15:52 | ED ---
HPI Chest Pain - HPI Summary HPI Summary: This pt is a 77 y/o female presenting to [facility] for right upper chest pain since yesterday. Pt states she has cholecystectomy due to gallstones done by Dr. Hope 2 days ago, 05/10/18. She notes she was discharged the same day at night and felt ok. Per , pt did not feel any pain due to pain medications. Yesterday pt began to have right upper chest pain radiating to her back associated with SOB. Pt reports her pain was stabbing at times. Her pain is aggravated with deep breaths and coughing. Pt presents with low grade fever of 100 F to the ED. PMHx: supraventricular tachycardia, COPD, DVT in 2011. Pt wears oxygen at home. Per , pt had to stop Advair and Tudorza due to surgery. Currently she is not anticoagulated. Allergies include ciprofloxacin. - History of Current Complaint Chief Complaint: EDChestPainROMI Time Seen by Provider: 05/12/18 15:14 Hx Obtained From: Patient Onset/Duration: Started Days Ago, Still Present Timing: Lasting Days Current Severity: Severe Pain Intensity: 10 Pain Scale Used: 0-10 Numeric Chest Pain Location: Right Anterior Chest Pain Radiates: Yes Chest Pain Radiates To:: Back Aggravating Factor(s): Deep Breaths, Other: - cough Alleviating Factor(s): Nothing Associated Signs and Symptoms: Positive: Chest Pain, Shortness of Breath, Fever - low grade - Additional Pertinent History Primary Care Physician: [id number] - Allergy/Home Medications Allergies/Adverse Reactions: Allergies Allergy/AdvReac Type Severity Reaction Status Date / Time cefaclor Allergy Severe Hives Verified 05/10/18 10:50 ciprofloxacin [From Cipro] AdvReac Tachycardia Verified 05/10/18 10:50 formoterol [From Dulera] AdvReac Tachycardia Verified 05/10/18 10:50 mometasone furoate AdvReac Tachycardia Verified 05/10/18 10:50 [From Dulera] tiotropium AdvReac Tachycardia Verified 05/10/18 10:50 [From Spiriva with HandiHaler] Home Medications: Home Medications Ferrous Sulfate TAB* 325 mg PO MOWEFR 05/12/18 [History Confirmed 05/12/18] PMH/Surg Hx/FS Hx/Imm Hx Endocrine/Hematology History: Reports: Hx Blood Transfusions, Other Endocrine/ Hematological Disorders - combined immunodeficiency, recieving immunoglobulin Denies: Hx Blood Disorders, Hx Bone Marrow Disease, Hx Diabetes, Hx Systemic Lupus Erythematosus, Hx Sickle Cell Disease, Hx Thyroid Disease, Hx Anemia, Hx Unexplained Bleeding Comment Only: Hx Anticoagulant Therapy - HX COUMADIN (NOT CURRENTLY ON) Cardiovascular History: Reports: Hx Deep Vein Thrombosis - DVT/PE, Hx Hypercholesterolemia, Other Cardiovascular Problems/Disorders - occassionally SVT d/t some medications Denies: Hx Aneurysm, Hx Angina, Hx Angioplasty, Hx Auto Implanted Cardiovert Defib, Hx Cardiac Arrest, Hx Cardiomegaly, Hx Congenital Heart Disease, Hx Congestive Heart Failure, Hx Coronary Artery Disease, Hx Hypotension, Hx Hypertension, Hx Pacemaker/ICD, Hx Peripheral Vascular Disease, Hx Rheumatic Fever, Hx Syncope, Hx Valvular Heart Disease Respiratory History: Reports: Hx Asthma, Hx Chronic Bronchitis, Hx Chronic Obstructive Pulmonary Disease (COPD), Hx Pneumonia, Hx Pulmonary Embolism, Hx Seasonal Allergies, Other Respiratory Problems/Disorders - uses 2L oxygen 13/10, increases to 3L with activity Denies: Hx Cystic Fibrosis, Hx Lung Cancer, Hx Pleural Effusion, Hx Pulmonary Edema, Hx Sleep Apnea GI History: Reports: Other GI Disorders - cyst on liver found 2011 hospitalization Denies: Hx Cirrhosis, Hx Crohn's Disease, Hx Diverticulosis, Hx Gall Bladder Disease, Hx Gastroesophageal Reflux Disease, Hx Gastrointestinal Bleed, Hx Hiatal Hernia, Hx Irritable Bowel, Hx Jaundice, Hx Obstructive Bowel, Hx Ileostomy, Hx Pyloric Stenosis, Hx Ulcer History: Reports: Other Problems/Disorders - HX of urethral stricture - stretched by Dr. Leigh Denies: Hx Acute Renal Failure, Hx Benign Prostatic Hyperplasia, Hx Chronic Renal Failure, Hx Dialysis, Hx Kidney Infection, Hx Kidney Stones, Hx Renal Disease Musculoskeletal History: Reports: Hx Arthritis - neck and fingers, Hx Back Problems, Other Musculoskeletal History - rotator cuff 06/2010 Denies: Hx Rheumatoid Arthritis, Hx Bursitis, Hx Congenital Bone Abnormalities, Hx Fibromyalgia, Hx Gout, Hx Orthopedic Injury, Hx Osteoporosis, Hx Scoliosis, Hx Tendonitis Sensory History: Reports: Hx Cataracts - beginning stages, Hx Contacts or Glasses - reading glasses Denies: Hx Hearing Aid Opthamlomology History: Reports: Hx Cataracts - beginning stages, Hx Contacts or Glasses - reading glasses Neurological History: Reports: Hx Nerve Disease - peripheral neuropathy in feet , Other Neuro Impairments/Disorders - RLS Denies: Hx Dementia, Hx Developmental Delay, Hx Headaches, Hx Migraine, Hx Seizures, Hx Spinal Cord Injury, Hx Transient Ischemic Attacks (TIA) Psychiatric History: Reports: Hx Anxiety, Hx Depression Denies: Hx Attention Deficit Hyperactivity Disorder, Hx Eating Disorder, Hx Panic Disorder, Hx Post Traumatic Stress Disorder, Hx Community Mental Health Tx , Hx Schizophrenia, Hx Bipolar Disorder, Hx Suicide Attempt, Hx of Violent Episodes Against Others, Hx Substance Abuse, Other Psychiatric Issues/Disorders - Cancer History Cancer Type, Location and Year: 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 TRACHEOSTOMY (TEMP) 2011 r/t pneumonia. 3 gall stones removed 02/2018. tonsillectomy 1950 approx. Cholecystectomy on 05/10/18 Hx Anesthesia Reactions: No Infectious Disease History: No Infectious Disease History: Denies: Hx Clostridium Difficile, Hx Hepatitis, Hx Human Immunodeficiency Virus (HIV), Hx Shingles, Hx Tuberculosis, History Other Infectious Disease, Traveled Outside the [place] in Last 30 Days - Family History Known Family History: Positive: Other Family History: Breast CA - Social History Alcohol Use: Rare Hx Substance Use: No Substance Use Type: Reports: None Hx Tobacco Use: Yes Smoking Status (MU): Former Smoker Type: Cigarettes Amount Used/How Often: 1 PPD Length of Time of Smoking/Using Tobacco: 25 years Have You Smoked in the Last Year: No Review of Systems Positive: Fever - low grade Positive: Chest Pain Positive: Shortness Of Breath All Other Systems Reviewed And Are Negative: Yes Physical Exam - Summary Physical Exam Summary: Appearance: Well-appearing, Well-nourished. Pt looks uncomfortable splinting right chest. Skin: Warm, dry, no obvious rash Eyes: sclera anicteric, no conjunctival pallor ENT: mucous membranes moist, pharynx appears normal Neck: Supple, nontender Respiratory: Clear to auscultation, no signs of respiratory distress Cardiovascular: Intermittently tachycardic. Normal S1, S2. No murmurs. Normal distal pulses in tibial and radial bilaterally. Abdomen: Soft, nontender, normal active bowel sounds present Musculoskeletal: Normal, Strength/ROM Intact Neurological: A&Ox3, awake and alert, mentation is normal, speech is fluent and appropriate Psychiatric: affect is normal, does not appear anxious or depressed Triage Information Reviewed: Yes Vital Signs On Initial Exam: Initial Vitals Temp Pulse Resp BP Pulse Ox 100.0 F 112 18 135/70 87 05/12/18 15:04 05/12/18 15:04 05/12/18 15:04 05/12/18 15:04 05/12/18 15:04 Vital Signs Reviewed: Yes Diagnostics - Vital Signs Vital Signs Temp Pulse Resp BP Pulse Ox 05/12/18 15:04 100.0 F 112 18 135/70 87 - Laboratory Result Diagrams: 05/12/18 16:08 05/12/18 17:57 Lab Statement: Any lab studies that have been ordered have been reviewed, and results considered in the medical decision making process. - Radiology Chest XR Radiology Interpretation Completed By: Radiologist Summary of Radiographic Findings: IMPRESSION: Stigmata of obstructive lung disease. No acute pulmonary or cardiac process evident. Dr. Pino has reviewed this report. - CT Chest CTA CT Interpretation Completed By: Radiologist Summary of CT Findings: IMPRESSION: #. No compelling evidence for pulmonary embolism. #. Severe emphysema with mild associated interstitial fibrosis. #. No evidence for pneumonia. Dr. Pino has reviewed this report. Abdomen/Pelvis CTA CT Interpretation Completed By: Radiologist Summary of CT Findings: IMPRESSION: #. Mild postsurgical edema at the gallbladder fossa/resection bed. No abscess collection evident. #. Negative for biliary dilatation. #. Few foci of free intraperitoneal air as expected 2 days postop. Additional iatrogenic gas within the anterior abdominal wall subcutaneous tissue plane. #. Negative for ascites. #. Correlate for urinary retention given significant distension of the urinary bladder. Negative for hydronephrosis. Dr. Pino has reviewed this report. - EKG 15:15 Cardiac Rate: NL - at 95 bpm EKG Rhythm: Sinus Rhythm Summary of EKG Findings: NSR at 95 BPM, P waves, QRS complex, and T waves are within normal limits, T waves and intervals are normal, no ischemic changes. This is a normal EKG Re-Evaluation - Re-Evaluation First Eval Re-Evaluation Time: 17:50 Comment: Dr. Hope reports he will admit the pt to his services. Chest Pain Course/Dx - Course Assessment/Plan: Pt is a 77 y/o female, with hx of COPD on home oxygen, who presents for right upper chest pain since yesterday s/p cholecystectomy on . Yesterday pt began to have right upper chest pain radiating to her back associated with SOB. Chest XR is negative. CTA chest/abdomen/pelvis was obtained. Dr. Hope, surgeon, came and saw the pt in the ED. Dr. Hope will admit the pt to his services. - Diagnoses Provider Diagnoses: Chest pain - Provider Notifications Discussed Care Of Patient With: Jesse Hope Time Discussed With Above Provider: 15:55 Instructed by Provider To: Other - Discussed pt care with Dr. Hope, surgeon , who recommends CTA of chest/abd/pelvis. Discharge - Sign-Out/Discharge Documenting (check all that apply): Patient Departure - Admit to [facility] Patient Received Moderate/Deep Sedation with Procedure: No - Discharge Plan Condition: Stable Disposition: ADMITTED TO [facility] - Billing Disposition and Condition Condition: STABLE Disposition: Admitted to [facility] - Attestation Statements Document Initiated by Clife: Yes Documenting Scribe: Leigh Dave Provider For Whom Milton is Documenting (Include Credential): Dinesh Pino MD Scribe Attestation: Leigh Lagos, scribed for Dinesh Pino MD on 05/13/18 at 1257. Scribe Documentation Reviewed: Yes Provider Attestation: The documentation as recorded by the Leigh reynoso accurately reflects the service I personally performed and the decisions made by , Dinesh Pino MD Status of Scribe Document: Viewed
[2018-05-12] MEDS ORDERED: Albuterol/Ipratropium NEB.SOL* Albuterol 2.5 MG/Ipratropium 0.5 MG 3 ML INH ONE (16:00)
[2018-05-12 16:45] LABS: ABS Basophils 0.1 10^3/ul (0-0.2); ABS Eosinophils 0 10^3/ul (0-0.6); ABS Lymphocytes 2.1 10^3/ul (1.0-4.8); ABS Monocytes 1.2 10^3/ul (0-0.8); ABS Neutrophils 7.7 10^3/ul (1.5-7.7); ABS Nucleated RBC 0 10^3/ul; Eosinophil % 0.3 %; Hematocrit 37 % (35-47); Lymphocyte % 18.7 %; Mean Corpuscular HGB Conc 33 g/dl (31-36); Mean Corpuscular Hemoglobin 31 pg (27-31); Mean Corpuscular Volume 93 fL (80-97); Mean Platelet Volume 6.9 fL (7.4-10.4); Nucleated Red Blood Cells % 0; Platelet Count 308 10^3/ul (150-450); Red Blood Count 3.92 10^6/ul (4.00-5.40); Red Cell Distribution Width 15 % (10.5-15)
[2018-05-12 17:04] LABS: ALT 27 U/L (7-52); Albumin 4.3 g/dL (3.2-5.2); Albumin/Globulin Ratio 1.3 (1-3); Alkaline Phosphatase 52 U/L (34-104); Anion Gap 8 mmol/L (2-11); BUN/Creatinine Ratio 11.9 (8-20); Blood Urea Nitrogen 7 mg/dL (6-24); CO2 Carbon Dioxide 26 mmol/L (22-32); Calcium 9.2 mg/dL (8.6-10.3); Chloride 101 mmol/L (101-111); EGFR African American 120.2 (>60); EGFR Non-African American 99.4 (>60); Globulin 3.4 g/dL (2-4); Glucose 109 mg/dL (70-100); Sodium 135 mmol/L (135-145); Total Protein 7.7 g/dL (6.4-8.9); Troponin I 0.02 ng/mL (<0.04)
[2018-05-12] MEDS ORDERED: Iohexol 350* (CONTRAST) 500 ML MDV IV ONE (17:08)
[2018-05-12] MEDS ORDERED: Ondansetron INJ* 2 MG/ML VIAL IV PRN (17:57)
[2018-05-12] MEDS ORDERED: Acetaminophen TAB* 325 MG PO PRN ×2 (17:57→18:55)
[2018-05-12] MEDS ORDERED: Lactated Ringers 1000 ML Bag* 1,000 ML IV ONE (17:59)
[2018-05-12 18:22] LABS: AST Redraw 24 U/L (13-39); Potassium Redraw 3.8 mmol/L (3.5-5.0)
[2018-05-12] MEDS ORDERED: LORazepam TAB(*) 0.5 MG PO PRN (18:55)
[2018-05-12] MEDS: Albuterol/Ipratropium NEB.SOL* Albuterol 2.5 MG/Ipratropium 0.5 MG 3 ML INH SCH (20:18)
[2018-05-12] MEDS: Fluticasone-Salmeterol 500-50* DISKUS INH SCH (20:19)
[2018-05-12] MEDS: Gabapentin CAP(*) 300 MG PO SCH (22:11)
[2018-05-12] MEDS: guaiFENesin ER TAB 600 MG PO SCH (22:12)
[2018-05-12] MEDS: Famotidine IV* 10 MG/ML 2 ML (20 mg) IV SLOW PU SCH (22:13)
[2018-05-12] MEDS: Polyethylene Glycol 3350* 17 GM PACKET PO SCH (22:13)
[2018-05-12] MEDS: Heparin VIAL(*) 5000 UNITS/ML VIAL (FIVE THOUSAND) SUBCUT SCH (22:13)
[2018-05-12] MEDS: Morphine VIAL* 4 MG/ML VIAL (1 ml vial) IV PRN (22:28)
--- NOTE | 2018-05-12 23:24 | HP ---
CC: Dr. Juan Pearce; Dr. Hines * HISTORY AND PHYSICAL: DATE OF ADMISSION: 05/12/18 REASON FOR ADMISSION: Right chest pain and right shoulder pain and shortness of breath. HISTORY OF PRESENT ILLNESS: Ms. Brenda Castro is a 77-year-old woman with a severe obstructive lung disease, who underwent an elective laparoscopic cholecystectomy on 05/10/18 for treatment of her recently diagnosed choledocholithiasis. She had been hospitalized in February with cholangitis and underwent an ERCP with common bile duct stone removal and sphincterotomy with Dr. Avery. She has done well since that time, but had remaining gallstones by study and elected to undergo an elective laparoscopic cholecystectomy despite her high pulmonary risk to prevent future episodes of choledocholithiasis and possible cholangitis. She did well on this past Thursday with surgery and was discharged to home later in the day, doing quite well. According to her , she did well overnight , but on Thursday when she developed more incisional discomfort, she also developed some pain up into the right chest and right shoulder causing her to have shortness of breath. She was taking some Percocet, but not her usual Motrin that she takes for back pain. Her symptoms worsened over the evening and she had called the office, was instructed to go to the emergency room, but she elected not to go to the emergency room yesterday. Today, she was seen in my office for a followup and after being evaluated, was sent to the emergency room for further workup and care due to her pulmonary appearance and status. While in the emergency room, she was noted to have a temperature of 100 and was slightly tachycardic to 112. Laboratory values included a white blood cell count of 11,000 without shift. Her electrolytes, BUN and creatinine were within normal limits. Lactic acid was 1.5. Total bilirubin 0.5, AST, ALT, and alkaline phosphatase were all normal. Her EKG was unremarkable. Troponin was also normal. She underwent a CT scan of the chest, abdomen, and pelvis. I did review these images. There was no compelling evidence of pulmonary embolism. There was some severe emphysema, but no evidence of pneumonia, significant atelectasis or other acute change. The abdominal portion showed no evidence of free fluid, biloma, or abscess. There was the postsurgical change of cholecystectomy as to be expected in the gallbladder fossa. There were small bubbles of free air consistent with postoperative change, but no other acute findings. Patient felt somewhat better after receiving IV narcotics as well as breathing treatments in the emergency room, however, due to the amount of discomfort and her significant pulmonary disease, decision was made to admit for further care and observation. PAST MEDICAL HISTORY: 1. Chronic obstructive pulmonary disease. 2. History of pulmonary embolism. 3. History of SVT. 4. Bronchitis. 5. Hypoxia. 6. Hyperlipidemia. 7. Depression/anxiety. PAST SURGICAL HISTORY: 1. Rotator cuff repair. 2. Tonsillectomy. 3. ERCP. 4. Low back pain. MEDICATIONS: Include: 1. Prednisone 2.5 mg daily. 2. Gabapentin of 300 mg twice daily. 3. Tudorza Pressair 400 mcg 1 puff twice a day. 4. Daliresp 500 one tablet daily. 5. Advair Diskus 500/50 mcg per dose 1 dose by mouth daily. 6. ProAir 2 puffs 4 times daily. 7. Oxygen at 2 L daily. 8. DuoNeb 1 dose nebulizer 4 times a day. 9. Lorazepam 0.5 mg p.o. p.r.n. 10. Multivitamins. 11. Centrum Silver. 12. Probiotic. 13. Cuvitru 40 cc infusions weekly. ALLERGIES: DULERA, CIPRO, and SPIRIVA. SOCIAL HISTORY: She is . She lives with her . She is retired. 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 She is a former smoker, quit 2011 and smoked 20 to 30 years. She denies alcohol use. She denies drug use. She does not use caffeine. REVIEW OF SYSTEMS: Otherwise, unremarkable as per above. PHYSICAL EXAMINATION GENERAL: She is a slender female, appears to have somewhat difficulty breathing , but is awake, alert, and conversive and can speak in full sentences. She is on oxygen. VITAL SIGNS: Temperature was 100, pulse 89, blood pressure 139/72. HEENT: Sclerae are anicteric. Oral mucosa was slightly dry. LUNGS: Clear with expiratory wheezes. Breath sounds were equal bilaterally, but diminished throughout. I appreciate no rales. There were some crackles at the base. HEART: Regular rate and rhythm without murmurs, rubs, or gallops. It was slightly rapid. ABDOMEN: Soft and slightly distended. She has bowel sounds present throughout. The incisions were clean, dry, and intact. There was appropriate incisional discomfort. EXTREMITIES: Showed no cyanosis or edema. IMPRESSION: 1. Right-sided chest pain and shoulder pain with concomitant shortness of breath, status post laparoscopic cholecystectomy 48 hours prior to presentation in the emergency room. She has severe obstructive lung disease and is on home oxygen at home. 2. Workup as above is essentially unremarkable from a cardiopulmonary standpoint. There is no evidence of pulmonary embolism or myocardial infarction. A CAT scan of the abdomen and pelvis has ruled out any significant postoperative surgical complications such as bile leak, abscess or bleeding. She does not appear to have choledocholithiasis. 3. At this point with her severe obstructive lung disease and difficult respiratory status, some of this may be related to inadequate pain medication administration at home with only oral narcotics. 4. After discussion with the patient, her as well as ER physician, decision is made to admit her for continued observation, pulmonary management, and IV analgesia and close observation. PLAN: 1. The patient will be admitted to the monitor bed on the floor. 2. Hospitalist consult will be obtained. I discussed her care with Dr. Doss , who will manage her pulmonary medications and assist in this matter. 3. She will be on clear liquids. 4. We will not start IV antibiotics. 5. Start subcutaneous heparin for postoperative DVT prophylaxis. 6. We will start her on H2 marisela. 7. Increase activity as tolerated. 8. We will start both IV Toradol as well as IV morphine in addition to Percocet for severe discomfort. 9. Lipase will be checked. 10. All of the above was discussed with the patient and her and they agreed with treatment plan. [id number]/[facility] #: [id number] [facility]
[2018-05-13 00:22] LABS: INR 1.06 (0.77-1.02)
[2018-05-13] MEDS: Albuterol/Ipratropium NEB.SOL* Albuterol 2.5 MG/Ipratropium 0.5 MG 3 ML INH SCH ×6 (01:14→19:44)
[2018-05-13] MEDS: Ketorolac INJ* 15 MG/ML 1 ML VIAL IV PUSH PRN ×2 (02:31→16:15)
[2018-05-13 04:52] LABS: Activated Partial Thrombo Time 32.6 seconds (26.0-36.3); INR 1.11 (0.77-1.02)
[2018-05-13] MEDS: Heparin VIAL(*) 5000 UNITS/ML VIAL (FIVE THOUSAND) SUBCUT SCH ×3 (05:40→21:03)
[2018-05-13] MEDS: oxyCODONE/Acetamin 5/325 MG* TAB PO PRN ×2 (05:40→21:05)
[2018-05-13] MEDS: Fluticasone-Salmeterol 500-50* DISKUS INH SCH ×2 (07:07→23:20)
[2018-05-13] MEDS: Famotidine IV* 10 MG/ML 2 ML (20 mg) IV SLOW PU SCH ×2 (07:48→21:03)
[2018-05-13] MEDS: Polyethylene Glycol 3350* 17 GM PACKET PO SCH ×2 (07:48→21:02)
[2018-05-13] MEDS: Gabapentin CAP(*) 300 MG PO SCH ×3 (07:48→21:04)
[2018-05-13] MEDS: guaiFENesin ER TAB 600 MG PO SCH ×2 (07:48→21:03)
[2018-05-13] MEDS: predniSONE TAB* 5 MG PO SCH (07:49)
[2018-05-13] MEDS: Roflumilast (NF) 500 MCG TAB PO SCH (07:52)
--- NOTE | 2018-05-13 10:41 | CONS ---
CC: Dr. Pearce; Dr. Mane Paz MEDICAL CONSULTATION: DATE OF CONSULT: 05/12/18 HISTORY OF PRESENT ILLNESS: Dr. Hope kindly asked me to see this patient and I examined her on 05/12/18. She is a 77-year-old woman who presented with abdominal and chest pain. She had elective laparoscopi c cholecystectomy on 05/10/18. When she went home in the late afternoon, she felt she was still some what sedated, though had some analgesics on board and did not feel too bad. However, during the nigh t, she felt poorly and started having pain on 05/11/18. The pain lasted throughout the day and she c marquez to the hospital on the morning of 05/12/18. She had a CT scan of the chest, abdomen, and pelvis with intravenous dye. There was no evidence of pulmonary embolism. She has emphysema, but no lung i nfiltrate or atelectasis. There was postsurgical change from cholecystectomy, but no free fluid. No biloma or abscess. There were some bubbles of free air consistent with operative change. Dr. Hope admitted the patient. She will be treated symptomatically and supportively. PAST MEDICAL HISTORY: The patient has a history of COPD and is on home oxygen. She had an intubation and tracheostomy in 2011. 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 PAST SURGICAL HISTORY: Besides her recent cholecystectomy, is right shoulder rotator cuff repair in 2010. ALLERGIES: CEFACLOR has given her hives. FAMILY HISTORY: Positive for abdominal aortic aneurysm and bladder cancer in her father. Mother had coronary artery disease and breast cancer. Her sister has multiple myeloma. SOCIAL HISTORY: She quit smoking more than 6 years ago. She does not abuse alcohol. She lives with her who is her surrogate decision maker. REVIEW OF SYSTEMS: The patient had no emesis. She ate very little since discharge from the hospital . Her breathing is hard to evaluate. She is in a lot of pain and cannot really walk very far. Very little cough. Rest of the review of systems is unremarkable. PHYSICAL EXAM: Temperature 98.9, blood pressure 146/79, heart rate 99. She is a thin, elderly woman sitting up on the ED stretcher. She appears somewhat uncomfortable. HEENT: Unremarkable. Head wa s normocephalic. Pupils equal and with full range of motion. Neck was supple. No JVD, adenopathy, or thyromegaly. Lungs show diminished breath sounds bilaterally. Heart was regular without murmurs o r rubs. Abdomen was soft. Bowel sounds were normal. There was mild diffuse tenderness. There was no pedal edema or calf tenderness. Joints show no significant swelling or deformity. IMPRESSION AND RECOMMENDATIONS: It seems likely that her symptoms are related to her recent cholecys tectomy. There does not seem to be any identifiable problem that needs treatment other than watch, t hen supportive care. She will be treated for her chronic lung disease which appears to probably be at baseline. I am hold ing many of her supplements which are probably not needed at this time. She will be given a laxative polyethylene glycol twice daily as she has not had a good bowel movement for a while; although, I no te she also has not eaten much. Her prednisone will be continued daily as before 2.5 mg daily. She will get nebulized albuterol-ipratropium which she uses at home. She says that the inhalers do not w ork as well for her. On discharge, it may be useful to give her budesonide in nebulized treatments. We will follow the patient along with you. Thank you for allowing us to see your patient in consulta tion. [id number]/[facility] #: [id number]
[2018-05-13] MEDS ORDERED: Albuterol/Ipratropium NEB.SOL* Albuterol 2.5 MG/Ipratropium 0.5 MG 3 ML INH PRN (11:41)
[2018-05-13] MEDS ORDERED: Albuterol/Ipratropium NEB.SOL* Albuterol 2.5 MG/Ipratropium 0.5 MG 3 ML INH SCH (13:00)
--- NOTE | 2018-05-13 16:14 | PN ---
Progress Note - Progress Note Date of Service: 05/13/18 SOAP: Subjective: Breathing better today, still with right upper abd pain that radiates up into chest but she has NOT asked for pain meds No SOB Passing flatus and had BM but feels more distended. Objective: Temp Pulse Resp BP Pulse Ox 99.3 F 75 18 161/63 98 05/13/18 15:37 05/13/18 15:37 05/13/18 15:43 05/13/18 15:37 05/13/18 15:37 Intake & Output 05/11/18 05/12/18 05/13/18 05/14/18 06:59 06:59 06:59 06:59 Intake Total 0 1915 Balance 0 1915 Weight 137 lb 14.4 oz Intake: IV Fluids 880 Oral 0 1035 Other: Estimated Void Medium # Voids 1 PEX: Comfortable in bed Lungs are clear with decreased breath sounds throughout. A few expiratory wheezes Abd is soft but distended. Incisions CDI. Appropriate incisional discomfort. Bowel sounds are present Ext without edema No labs Assessment: S/P lap choly-persistent pain, w/u negative for acute complication Chronic back pain Severe COPD Plan: Full liquids Analgesia-encouraged use of ordered medications and discussed with nursing Pulmonary toilet Increase activity Appreciate hospitalist input/assistance
[2018-05-13] MEDS: Morphine VIAL* 4 MG/ML VIAL (1 ml vial) IV PRN (19:30)
[2018-05-14] MEDS: oxyCODONE/Acetamin 5/325 MG* TAB PO PRN ×2 (03:42→14:01)
[2018-05-14] MEDS: Heparin VIAL(*) 5000 UNITS/ML VIAL (FIVE THOUSAND) SUBCUT SCH ×2 (05:59→14:00)
[2018-05-14] MEDS: Fluticasone-Salmeterol 500-50* DISKUS INH SCH (08:11)
[2018-05-14] MEDS: Albuterol/Ipratropium NEB.SOL* Albuterol 2.5 MG/Ipratropium 0.5 MG 3 ML INH SCH ×2 (08:11→13:20)
[2018-05-14] MEDS: Gabapentin CAP(*) 300 MG PO SCH ×2 (08:25→13:59)
[2018-05-14] MEDS: Polyethylene Glycol 3350* 17 GM PACKET PO SCH (08:25)
[2018-05-14] MEDS: guaiFENesin ER TAB 600 MG PO SCH (08:26)
[2018-05-14] MEDS: Famotidine IV* 10 MG/ML 2 ML (20 mg) IV SLOW PU SCH (08:26)
[2018-05-14] MEDS: predniSONE TAB* 5 MG PO SCH (08:26)
[2018-05-14] MEDS: Roflumilast (NF) 500 MCG TAB PO SCH (08:32)
[2018-05-14] MEDS: Ketorolac INJ* 15 MG/ML 1 ML VIAL IV PUSH PRN (09:27)
--- NOTE | 2018-05-14 09:29 | PN ---
Progress Note - Progress Note Date of Service: 05/14/18 SOAP: Subjective: Continues to feel better Breathing back to baseline Tolerated po without N/C and had BM Ambulated in halls Pain improved Objective: Temp Pulse Resp BP Pulse Ox 97.8 F 68 18 145/50 96 05/14/18 07:26 05/14/18 08:14 05/14/18 08:25 05/14/18 07:26 05/14/18 08:14 Intake & Output 05/12/18 05/13/18 05/14/18 05/15/18 06:59 06:59 06:59 06:59 Intake Total 0 1915 Balance 0 1915 Weight 137 lb 14.4 oz Intake: IV Fluids 880 Oral 0 1035 Other: Estimated Void Medium # Voids 1 PEX: Comfortable Lungs are clear-decreased breath sounds throughout-a few expiratory wheezes No rales or rhonchi Abd is soft and distended. Bowel sounds are present. Incisions CDI, appropriate incisional tenderness Ext without edema Assessment: S/P lap choly 05/10 Severe COPD RE-admitted for severe abd and chest pain, COPD exacerbation-W/U unremarkable. Now improved Plan: Advance diet Pulmonary care Analgesia Hopeful D/C later today
--- NOTE | 2018-05-14 13:50 | PN ---
Subjective Date of Service: 05/14/18 Interval History: Still some abd pain but slowly subsiding. Anxious to go home. Resp status at her baseline. Objective Active Medications: Acetaminophen (Tylenol Tab*) 650 mg PO Q6H PRN PRN Reason: pain/fever Albuterol/Ipratropium (Duoneb (Albuterol 2.5 Mg/Ipratropium 0.5 Mg)) 1 neb INH Q4H PRN PRN Reason: SOB/WHEEZING Albuterol/Ipratropium (Duoneb (Albuterol 2.5 Mg/Ipratropium 0.5 Mg)) 1 neb INH QID [facility] Last Admin: 05/14/18 13:20 Dose: 1 neb Famotidine (Pepcid Iv*) 20 mg IV SLOW PU BID [facility] Last Admin: 05/14/18 08:26 Dose: 20 mg Gabapentin (Neurontin Cap(*)) 300 mg PO TID [facility] Last Admin: 05/14/18 08:25 Dose: 300 mg Guaifenesin (Mucinex*) 900 mg PO BID [facility] Last Admin: 05/14/18 08:26 Dose: 900 mg Heparin Sodium (Porcine) (Heparin Vial(*)) 5,000 units SUBCUT Q8HR [facility] Last Admin: 05/14/18 05:59 Dose: 5,000 units Ketorolac Tromethamine (Toradol Inj*) 15 mg IV PUSH Q6H PRN PRN Reason: PAIN Last Admin: 05/14/18 09:27 Dose: 15 mg Lorazepam (Ativan Tab(*)) 0.5 mg PO Q12H PRN PRN Reason: ANXIETY Morphine Sulfate (Morphine Vial*) 4 mg IV Q2H PRN PRN Reason: PAIN Last Admin: 05/13/18 19:30 Dose: 4 mg Nf: (Immun Glob G( Igg)/Gly/Iga Ov50 [ Cuvitru 8 Gram/ 40 Ml Vial] 8 Gm) 8 gm SUBCUT WEEKLY [facility] Ondansetron HCl (Zofran Inj*) 4 mg IV Q6H PRN PRN Reason: NAUSEA Oxycodone/Acetaminophen (Percocet 5/325 Tab*) 1 tab PO Q4H PRN PRN Reason: PAIN Last Admin: 05/14/18 03:42 Dose: 1 tab Polyethylene Glycol/Electrolytes (Miralax*) 17 gm PO 0800,2100 [facility] Last Admin: 05/14/18 08:25 Dose: 17 gm Prednisone (Deltasone Tab*) 2.5 mg PO QAM [facility] Last Admin: 05/14/18 08:26 Dose: 2.5 mg Roflumilast (Daliresp (Nf)) 500 mcg PO QAM [facility] Last Admin: 05/14/18 08:32 Dose: Not Given Fluticasone/Salmeterol (Advair Diskus 500-50*) 1 puff INH BID [facility] Last Admin: 05/14/18 08:11 Dose: 1 puff Vital Signs - 8 hr 05/14/18 05/14/18 05/14/18 06:39 07:26 08:14 Temperature 97.8 F Pulse Rate 76 68 Respiratory 18 16 Rate Blood Pressure 145/50 (mmHg) O2 Sat by Pulse 95 96 Oximetry 05/14/18 05/14/18 05/14/18 08:25 11:03 11:11 Temperature 98.1 F Pulse Rate 75 Respiratory 18 20 16 Rate Blood Pressure 138/85 (mmHg) O2 Sat by Pulse 98 Oximetry 05/14/18 13:23 Temperature Pulse Rate 80 Respiratory 18 Rate Blood Pressure (mmHg) O2 Sat by Pulse 100 Oximetry Oxygen Devices in Use Now: Nasal Cannula Appearance: Alert, sitting up in bed. In good spirits. Looks comfortable. Eyes: No Scleral Icterus Respiratory: Symmetrical Chest Expansion and Respiratory Effort, Clear to Percussion, - - Diminished BS BL. Abdominal: - - Soft, mild diffuse tenderness. Nl BS. Extremities: No Edema, No Clubbing, Cyanosis, - Skin: No Rash or Ulcers, No Nodules or Sclerosis, - Neurological: Alert and Oriented x 3, NL Sensation Result Diagrams: 05/12/18 16:08 05/12/18 17:57 Assess/Plan/Problems-Billing Assessment: - Patient Problems (1) COPD (chronic obstructive pulmonary disease) Current Visit: No Status: Acute Code(s): J44.9 - CHRONIC OBSTRUCTIVE PULMONARY DISEASE, UNSPECIFIED SNOMED Code(s): 23871108 Comment: Stable, at her baseline. Continue her usual care at home. VNS referral made. (2) Combined immunodeficiency disorder Current Visit: No Status: Acute Code(s): D81.9 - COMBINED IMMUNODEFICIENCY, UNSPECIFIED SNOMED Code(s): 944182356 Comment: Continue as prescribed by Dr. Paz. (3) S/P cholecystectomy Current Visit: Yes Status: Acute Code(s): Z90.49 - ACQUIRED ABSENCE OF OTHER SPECIFIED PARTS OF DIGESTIVE TRACT SNOMED Code(s): 742967548 Comment: Advanced to low fat diet. Discharge and fup per Dr. Hope. Discussed with Dr. Grullon
[2018-05-14 15:10] VITALS: BP 135/49
[2018-05-17] MEDS ORDERED: IMMUNE GLOBULIN SUBCUT SCH (09:30)
[2018-05-17] MEDS ORDERED: [UNRECOGNIZED DRUG - OTHER] SUBCUT SCH (09:30)
== END 2018-05-14 18:01 | disposition home or self-care (01) ==
LOC: ED 15:02 → MEDTELE 17:55
PROVIDERS: ADMIT Surgery; ATTEND Surgery
DX: J44.1 Chronic obstructive pulmonary disease with (acute) exacerbation (principal); R07.9 Chest pain, unspecified; R06.02 Shortness of breath; R50.9 Fever, unspecified; R05 Cough; Z86.718 Personal history of other venous thrombosis and embolism; J44.9 Chronic obstructive pulmonary disease, unspecified; Z87.891 Personal history of nicotine dependence; D81.9 Combined immunodeficiency, unspecified; Z90.49 Acquired absence of other specified parts of digestive tract; I47.1 Supraventricular tachycardia; J40 Bronchitis, not specified as acute or chronic; R09.02 Hypoxemia; E78.5 Hyperlipidemia, unspecified; F32.9 Major depressive disorder, single episode, unspecified
CPT/HCPCS: 36415; 71045; 71275; 74177; 80053; 83605; 83690; 84484; 85025; 85610; 85730; 93005; 94640; 96374; 96375; 99284; A9270-GY; G0378; J1644; J1885; J2270; J7512; Q9967

== ENCOUNTER 2018-07-21 12:52 | Day surgery (SDC) | payer MEDICARE, OTHER ==
[~2018-07-21 12:52] MED LIST changes: -Acetaminophen IV 1GM/100ML * 1,000 MG/100 ML VIAL IVPB ONE; -Acetaminophen IV 1GM/100ML * 100 ML ONE; +Acetaminophen TAB* 325 MG PO PRN; -Albuterol/Ipratropium NEB.SOL* Albuterol 2.5 MG/Ipratropium 0.5 MG 3 ML ONE; -Bupivacaine 0.25% W/EPI* 10 ML SDV ONE; -Cisatracurium* 2 MG/ML MDV 5 ML ONE; -Dexamethasone IV* 4 MG/ML 1 ML (4 MG) ONE; -Famotidine IV* 10 MG/ML 2 ML (20 mg) IV ONE; -Famotidine IV* 10 MG/ML 2 ML (20 mg) ONE; -Glycopyrrolate IV* 0.2 MG/ML 1 ML VIAL ONE; -Ketorolac INJ* 30 MG/ML 1 ML VIAL ONE; -Lactated Ringers 1000 ML Bag* 1,000 ML IV SCH; -Levalbuterol 0.63MG/3ML NEB* UNIT OF USE INH ONE; -Lidocaine 2% PF * 5 ML VIAL ONE; -Midazolam* 1 MG/ML 5 ML VIAL (5 MG) ONE; -Naloxone* 0.4 MG/ML 1 ML VIAL IV PRN; -Neostigmine Methylsulfate* 1 MG/ML 10 ML VIAL (1 mg/ml) ONE; -Ondansetron INJ* 2 MG/ML VIAL IV PRN; -Ondansetron INJ* 2 MG/ML VIAL ONE; -Phenylephrine INJ* 10 MG/ML 1 ML VIAL (10 MG) ONE; -Propofol* 10 MG/ML 20 ML BTL ONE; -ceFAZolin 2 GM PREMIX in ORs 0 GM/0 ML BAG IVPB ONE; -fentaNYL* 50 MCG/ML 2 ML VIAL (100 MCG VIAL) ONE
[2018-07-21] MEDS ORDERED: acetaZOLAMIDE TAB* 250 MG ONE (13:50)
[2018-07-21] MEDS ORDERED: Phenylephrine OPHTH SOL 2.5%* 2 ML ONE (13:51)
[2018-07-21] MEDS ORDERED: Ketorolac 0.5% OPHTH (NF) 0.5 % 5 ML BTL ONE (13:51)
[2018-07-21] MEDS ORDERED: Lidocaine 1%* 5 ML VIAL ONE (13:51)
[2018-07-21] MEDS ORDERED: Cyclopentolate 1% OPTH.SOL* 2 ML BTL ONE (13:51)
[2018-07-21] MEDS ORDERED: Povidone Iodine 5% OPTH* 30 ML BTL ONE (13:51)
[2018-07-21] MEDS ORDERED: Lidocaine 2% EPI 1:200000 MPF*10-20 ML VIAL ONE (13:51)
[2018-07-21] MEDS ORDERED: Proparacaine 0.5% OPHTH.SOL* 15 ML BTL ONE (13:51)
[2018-07-21] MEDS ORDERED: Neomycin/Polymy/Dex OPTH.SUSP* MAXITROL 0.1% 5 ML ONE (13:51)
[2018-07-21] MEDS ORDERED: Midazolam* 1 MG/ML 2 ML VIAL (2 MG) ONE ×2 (15:46→16:16)
[2018-07-21] MEDS ORDERED: fentaNYL* 50 MCG/ML 2 ML VIAL (100 MCG VIAL) ONE (16:17)
[2018-07-21] MEDS ORDERED: Carbachol 0.01% OPH.SOL* 1.5 ML OPHTH.SOLN ONE (16:29)
[2018-07-21 17:07] VITALS: BP 93/64
--- NOTE | 2018-07-21 22:37 | OP ---
DATE OF OPERATION: 07/21/18 - [facility] DATE OF : 44 SURGEON: Michael Perez MD PREOPERATIVE DIAGNOSIS: Cataract, right eye. POSTOPERATIVE DIAGNOSIS: Cataract, right eye. OPERATIVE PROCEDURE: Extracapsular cataract extraction with intraocular lens implant right eye. DESCRIPTION OF PROCEDURE: The patient was brought to the operating room after being given 1/2% Alcaine with epinephrine drops in the preoperative area. The eye was prepped and draped in the usual sterile fashion. Sterile drape and eyelid speculum were placed. Again, topical 1/2% Alcaine with epinephrine was given. A paracentesis incision was made at the 9 o'clock position with the No.75 blade. Clear cornea incision 2.2 x 2.2-mm was created at the 12 o'clock position starting at the anterior limbus using the 2.2-mm keratome. The anterior chamber was irrigated with 0.4 mL of 1% non-preservative intracameral lidocaine and filled with DisCoVisc. A capsulorrhexis was completed using the cystotome and the Utrata forceps. Hydrodissection was performed with balanced salt solution. The lens nucleus was removed with the Phacoemulsification handpiece without incident. Cortex was removed with the irrigation-aspiration handpiece. The capsular bag was re-inflated using DisCoVisc and an [id number] 22.5 implant was inserted with the shooter. Pupil was very small, so prior capsulorrhexis a Malyugin ring was used to dilate to hold the pupil open and removed after insertion of the lens. The pupil was not only small but very flaccid, so some Miostat was injected at the end of the case to make sure that the pupil would not prolapse at the end. The irrigation-aspiration handpiece was used to remove all residual DisCoVisc. The eye was refilled with balanced salt solution and the wound checked and found to be watertight. Topical Maxitrol drops were given. [id number]/[facility] #: [id number] [facility]
== END 2018-07-21 17:01 | disposition home or self-care (01) ==
LOC: OREAST 12:52
PROVIDERS: ATTEND Specialist
DX: H25.11 Age-related nuclear cataract, right eye (principal); H04.123 Dry eye syndrome of bilateral lacrimal glands; J44.9 Chronic obstructive pulmonary disease, unspecified; I47.1 Supraventricular tachycardia; Z99.81 Dependence on supplemental oxygen; D84.9 Immunodeficiency, unspecified; G25.81 Restless legs syndrome
CPT/HCPCS: A9270-GY; J2250; J3010; V2632

== ENCOUNTER 2018-07-28 11:00 | Day surgery (SDC) | payer MEDICARE, OTHER ==
[2018-07-28] MEDS ORDERED: acetaZOLAMIDE TAB* 250 MG ONE (13:53)
[2018-07-28] MEDS ORDERED: Povidone Iodine 5% OPTH* 30 ML BTL ONE (13:53)
[2018-07-28] MEDS ORDERED: Cyclopentolate 1% OPTH.SOL* 2 ML BTL ONE (13:53)
[2018-07-28] MEDS ORDERED: Lidocaine 2% EPI 1:200000 MPF*10-20 ML VIAL ONE (13:53)
[2018-07-28] MEDS ORDERED: Ketorolac 0.5% OPHTH (NF) 0.5 % 5 ML BTL ONE (13:53)
[2018-07-28] MEDS ORDERED: Phenylephrine OPHTH SOL 2.5%* 2 ML ONE (13:53)
[2018-07-28] MEDS ORDERED: Lidocaine 1%* 5 ML VIAL ONE (13:53)
[2018-07-28] MEDS ORDERED: Proparacaine 0.5% OPHTH.SOL* 15 ML BTL ONE (13:53)
[2018-07-28] MEDS ORDERED: Neomycin/Polymy/Dex OPTH.SUSP* MAXITROL 0.1% 5 ML ONE (13:53)
[2018-07-28] MEDS ORDERED: Lidocaine 2% PF * 5 ML VIAL ONE (14:03)
[2018-07-28] MEDS ORDERED: Propofol* 10 MG/ML 20 ML BTL ONE (14:03)
--- NOTE | 2018-07-28 15:02 | OP ---
OPERATIVE NOTE: DATE OF OPERATION: 07/28/18 DATE OF : 44 SURGEON: Michael Perez M.D. PREOPERATIVE DIAGNOSIS: Cataract, left eye. POSTOPERATIVE DIAGNOSIS: Cataract, left eye. OPERATIVE PROCEDURE: Extracapsular cataract extraction with intraocular lens implant left eye. PROCEDURE: The patient was brought to the operating room after being given 1/2% Alcaine with epineph rine drops in the preoperative area. The eye was prepped and draped in the usual sterile fashion. S terile drape and eyelid speculum were placed. Again, topical 1/2% Alcaine with epinephrine was given . A paracentesis incision was made at the 3 o'clock position with the No.75 blade. Clear cornea inc ision 2.2 x 2.2-mm was created at the 6 o'clock position starting at the anterior limbus using the 2. 2-mm keratome. The anterior chamber was irrigated with 0.4 mL of 1% non-preservative intracameral li docaine and filled with DisCoVisc. A capsulorrhexis was completed using the cystotome and the Utrata forceps. Hydrodissection was performed with balanced salt solution. The lens nucleus was removed wi th the Phacoemulsification handpiece without incident. Cortex was removed with the irrigation-aspira tion handpiece. The capsular bag was re-inflated using DisCoVisc and an [id number] 22 implant was insert ed with the shooter. The irrigation-aspiration handpiece was used to remove all residual DisCoVisc. The eye was refilled with balanced salt solution and the wound checked and found to be watertight. Topical Maxitrol drops were given. [id number]/[facility] #: [id number]
[2018-07-28 15:50] VITALS: BP 141/58
== END 2018-07-28 14:55 | disposition home or self-care (01) ==
LOC: OREAST 11:00
PROVIDERS: ATTEND Specialist
DX: H25.12 Age-related nuclear cataract, left eye (principal); H04.123 Dry eye syndrome of bilateral lacrimal glands; J44.9 Chronic obstructive pulmonary disease, unspecified; E78.5 Hyperlipidemia, unspecified; Z99.81 Dependence on supplemental oxygen
CPT/HCPCS: A9270-GY; J2704; V2632

== ENCOUNTER 2019-10-17 11:21 | Inpatient (IN) ==
[2019-10-17] MEDS ORDERED: Rocuronium 50 mg VIAL 10 mg/ml 5 ml VIAL (50 mg) ONE (11:32)
[2019-10-17] MEDS ORDERED: Succinylcholine 200 mg VIAL 20 mg/ml 10 ml VIAL (200 mg) ONE (11:33)
[2019-10-17 11:39] LABS: ABS Basophils 0.1 10^3/ul (0-0.2); ABS Eosinophils 0.3 10^3/ul (0-0.6); ABS Lymphocytes 2.7 10^3/ul (1.0-4.8); ABS Monocytes 0.9 10^3/ul (0-0.8); ABS Neutrophils 5.9 10^3/ul (1.5-7.7); Eosinophil % 2.7 %; Hematocrit 38 % (35-47); Lymphocyte % 27.7 %; Mean Corpuscular HGB Conc 35 g/dL (31-36); Mean Corpuscular Hemoglobin 32 pg (27-31); Mean Corpuscular Volume 91 fL (80-97); Mean Platelet Volume 6.6 fL (7.4-10.4); Platelet Count 347 10^3/uL (150-450); Red Blood Count 4.14 10^6 /uL (3.70-4.87); Red Cell Distribution Width 14 % (10-15); White Blood Count 9.8 10^3/uL (3.5-10.8)
[2019-10-17] MEDS ORDERED: Midazolam 10 mg/10 ml VIAL 1 mg/ml 10 ml VIAL (10 mg) ONE (11:40)
[2019-10-17] MEDS ORDERED: Etomidate 40 mg/20 ml (2 MG/ML) 20 ml VIAL (40 mg) ONE (11:40)
[2019-10-17] MEDS ORDERED: Propofol 10 mg/ml 100 ML BTL 100 ML IV ONE (11:43)
[2019-10-17 11:48] LABS: INR 1.01 (0.82-1.09)
[2019-10-17 11:59] LABS: Albumin 4.2 g/dL (3.2-5.2); Albumin/Globulin Ratio 1.4 (1-3); Calcium 9.4 mg/dL (8.6-10.3); EGFR African American 84.4 (>60); EGFR Non-African American 69.7 (>60); Globulin 3.1 g/dL (2-4); Potassium 4.5 mmol/L (3.5-5.0); Total Bilirubin 0.4 mg/dL (0.2-1.0); Total Protein 7.3 g/dL (6.4-8.9); Troponin I 0.01 ng/mL (<0.03)
[2019-10-17] MEDS ORDERED: fentaNYL 100 mcg/2 ml 50 MCG/ML VIAL IV SLOW PU ONE ×2 (12:23→16:17)
[2019-10-17] MEDS ORDERED: Albuterol/Ipratropium NEB.SOL (2.5/0.5 MG) 3 ML NEB.SOLN INH PRN (12:50)
[2019-10-17] MEDS ORDERED: Acetylcysteine ORAL SOL 200 mg/ml 30 ml VIAL INH PRN (12:50)
[2019-10-17] MEDS: Heparin 5000 UNITS/ML 1 mL VIAL SUBCUT SCH ×2 (15:38→20:49)
[2019-10-17] MEDS: Propofol 10 mg/ml 100 ML BTL 100 ML IV ONE ×2 (16:22→20:53)
[2019-10-17] MEDS ORDERED: fentaNYL 100 mcg/2 ml 50 MCG/ML VIAL ONE (16:28)
[2019-10-17] MEDS: methylPREDNISolone SOD 40 mg/ml 1 ml VIAL IV SCH (19:13)
[2019-10-17] MEDS: cefTRIAXone 1 gm/50 mL NS BAG 1 GM/50 ML BAG IVPB SCH (19:13)
[2019-10-17] MEDS ORDERED: Azithromycin 500 mg/250 ml NS 500 MG/250 ML BAG IVPB ONE (19:30)
[2019-10-17] MEDS ORDERED: Propofol 10 mg/ml 100 ML BTL 100 ML ONE (20:37)
[2019-10-17] MEDS: Mometasone/Formoter 200/5 MDI INH SCH (22:44)
[2019-10-17] MEDS: Albuterol/Ipratropium NEB.SOL (2.5/0.5 MG) 3 ML NEB.SOLN INH SCH (22:58)
[2019-10-17 23:10] LABS: Urine Appearance Clear; Urine Bilirubin Negative (Negative); Urine Blood Negative (Negative); Urine Color Yellow; Urine Glucose Negative (Negative); Urine Ketones Negative (Negative); Urine Nitrite Negative (Negative); Urine Protein Negative (Negative); Urine Specific Gravity 1.009 (1.010-1.030); Urine Urobilinogen Negative (Negative)
[2019-10-18] MEDS: GuaiFENesin DM 100 mg/10 mg in 5 ML UDC PO SCH ×6 (00:18→20:22)
[2019-10-18] MEDS ORDERED: Propofol 10 mg/ml 100 ML BTL 100 ML ONE (02:27)
[2019-10-18] MEDS: Propofol 10 mg/ml 100 ML BTL 100 ML IV SCH ×2 (02:34→06:52)
[2019-10-18] MEDS: methylPREDNISolone SOD 40 mg/ml 1 ml VIAL IV SCH ×3 (02:35→20:22)
[2019-10-18 05:19] LABS: ABS Lymphocytes 0.5 10^3/ul (1.0-4.8); ABS Monocytes 0.1 10^3/ul (0-0.8); ABS Neutrophils 7.4 10^3/ul (1.5-7.7); Hematocrit 38 % (35-47); Hemoglobin 13.2 g/dL (12.0-16.0); Lymphocyte % 6.4 %; Mean Corpuscular HGB Conc 35 g/dL (31-36); Mean Corpuscular Hemoglobin 32 pg (27-31); Mean Corpuscular Volume 92 fL (80-97); Mean Platelet Volume 7.1 fL (7.4-10.4); Platelet Count 311 10^3/uL (150-450); Red Blood Count 4.09 10^6 /uL (3.70-4.87); Red Cell Distribution Width 13 % (10-15); White Blood Count 8.1 10^3/uL (3.5-10.8)
[2019-10-18 05:35] LABS: Calcium 8.6 mg/dL (8.6-10.3); Potassium 4.3 mmol/L (3.5-5.0)
[2019-10-18 05:41] LABS: BUN/Creatinine Ratio 15.7 (8-20); EGFR African American 98.4 (>60); EGFR Non-African American 81.4 (>60)
[2019-10-18] MEDS: Albuterol/Ipratropium NEB.SOL (2.5/0.5 MG) 3 ML NEB.SOLN INH SCH ×5 (06:42→23:30)
[2019-10-18] MEDS: Chlorhexidine MOUTHWASH 0.12% 15 ML UDC TOPICAL SCH ×5 (06:53→21:40)
[2019-10-18] MEDS: Heparin 5000 UNITS/ML 1 mL VIAL SUBCUT SCH ×3 (06:53→21:47)
[2019-10-18] MEDS ORDERED: Lorazepam PYXIS KEY PRN (07:34)
[2019-10-18] MEDS ORDERED: LORazepam 2 mg VIAL 1 ml IV PUSH PRN (07:34)
[2019-10-18] MEDS: Pantoprazole VIAL 40 MG VIAL IV SCH (08:58)
[2019-10-18] MEDS: Multivitamins/Minerals TAB PO SCH (09:00)
[2019-10-18] MEDS: Mometasone/Formoter 200/5 MDI INH SCH (09:00)
[2019-10-18] MEDS: CMCS: Roflumilast 500 mcg TAB (NF) PO SCH (09:01)
[2019-10-18] MEDS: cefTRIAXone 1 gm/50 mL NS BAG 1 GM/50 ML BAG IVPB SCH (18:45)
[2019-10-19] MEDS: GuaiFENesin DM 100 mg/10 mg in 5 ML UDC PO SCH ×6 (00:49→20:38)
[2019-10-19] MEDS: Chlorhexidine MOUTHWASH 0.12% 15 ML UDC TOPICAL SCH (01:56)
[2019-10-19] MEDS: Albuterol/Ipratropium NEB.SOL (2.5/0.5 MG) 3 ML NEB.SOLN INH SCH ×2 (03:56→08:18)
[2019-10-19] MEDS: Heparin 5000 UNITS/ML 1 mL VIAL SUBCUT SCH ×3 (05:21→20:38)
[2019-10-19 06:02] LABS: ABS Lymphocytes 1.1 10^3/ul (1.0-4.8); ABS Monocytes 0.6 10^3/ul (0-0.8); Hematocrit 34 % (35-47); Hemoglobin 11.7 g/dL (12.0-16.0); Lymphocyte % 7.2 %; Mean Corpuscular HGB Conc 34 g/dL (31-36); Mean Corpuscular Hemoglobin 32 pg (27-31); Mean Corpuscular Volume 94 fL (80-97); Mean Platelet Volume 6.8 fL (7.4-10.4); Platelet Count 275 10^3/uL (150-450); Red Blood Count 3.67 10^6 /uL (3.70-4.87); Red Cell Distribution Width 14 % (10-15); White Blood Count 15.8 10^3/uL (3.5-10.8)
[2019-10-19 06:19] LABS: BUN/Creatinine Ratio 20.3 (8-20); EGFR African American 92.3 (>60); EGFR Non-African American 76.3 (>60); Magnesium 1.7 mg/dL (1.9-2.7); Potassium 4.5 mmol/L (3.5-5.0)
[2019-10-19] MEDS: Pantoprazole VIAL 40 MG VIAL IV SCH (08:13)
[2019-10-19] MEDS: methylPREDNISolone SOD 40 mg/ml 1 ml VIAL IV SCH ×3 (08:13→22:23)
[2019-10-19] MEDS: CMCS: Roflumilast 500 mcg TAB (NF) PO SCH (08:14)
[2019-10-19] MEDS: Multivitamins/Minerals TAB PO SCH (10:18)
[2019-10-19] MEDS: Azithromycin 500 mg/250 ml NS 500 MG/250 ML BAG IVPB SCH (10:18)
[2019-10-19] MEDS: cefTRIAXone 1 gm/50 mL NS BAG 1 GM/50 ML BAG IVPB SCH (18:19)
[2019-10-19] MEDS: TUDORZA PRESSAIR INH SCH (20:39)
[2019-10-20] MEDS: GuaiFENesin DM 100 mg/10 mg in 5 ML UDC PO SCH ×7 (01:40→23:29)
[2019-10-20 04:43] LABS: ABS Lymphocytes 1.2 10^3/ul (1.0-4.8); ABS Monocytes 0.2 10^3/ul (0-0.8); ABS Neutrophils 10.4 10^3/ul (1.5-7.7); Hematocrit 34 % (35-47); Hemoglobin 11.8 g/dL (12.0-16.0); Lymphocyte % 9.9 %; Mean Corpuscular HGB Conc 35 g/dL (31-36); Mean Corpuscular Hemoglobin 32 pg (27-31); Mean Corpuscular Volume 91 fL (80-97); Mean Platelet Volume 6.6 fL (7.4-10.4); Platelet Count 303 10^3/uL (150-450); Red Blood Count 3.73 10^6 /uL (3.70-4.87); Red Cell Distribution Width 14 % (10-15); White Blood Count 11.8 10^3/uL (3.5-10.8)
[2019-10-20 04:59] LABS: BUN/Creatinine Ratio 20.3 (8-20); Calcium 8.3 mg/dL (8.6-10.3); EGFR African American 109.2 (>60); EGFR Non-African American 90.2 (>60); Magnesium 1.9 mg/dL (1.9-2.7); Potassium 4.4 mmol/L (3.5-5.0)
[2019-10-20] MEDS: Heparin 5000 UNITS/ML 1 mL VIAL SUBCUT SCH ×3 (05:49→22:31)
[2019-10-20] MEDS: TUDORZA PRESSAIR INH SCH ×2 (07:34→23:28)
[2019-10-20] MEDS: methylPREDNISolone SOD 40 mg/ml 1 ml VIAL IV SCH (08:52)
[2019-10-20] MEDS: Pantoprazole VIAL 40 MG VIAL IV SCH (08:53)
[2019-10-20] MEDS: CMCS: Roflumilast 500 mcg TAB (NF) PO SCH (08:56)
[2019-10-20] MEDS: Multivitamins/Minerals TAB PO SCH (08:57)
[2019-10-20] MEDS: Azithromycin 500 mg/250 ml NS 500 MG/250 ML BAG IVPB SCH (10:21)
[2019-10-20] MEDS ORDERED: Albuterol/Ipratropium NEB.SOL (2.5/0.5 MG) 3 ML NEB.SOLN INH PRN (14:06)
[2019-10-20] MEDS: Albuterol/Ipratropium NEB.SOL (2.5/0.5 MG) 3 ML NEB.SOLN INH SCH (19:08)
[2019-10-20] MEDS: FLUTICAS INH SCH (19:57)
[2019-10-20] MEDS: SALMET INH SCH (19:57)
[2019-10-20] MEDS: MDI INH SCH (19:57)
[2019-10-21] MEDS: GuaiFENesin DM 100 mg/10 mg in 5 ML UDC PO SCH ×3 (03:34→13:46)
[2019-10-21] MEDS: Heparin 5000 UNITS/ML 1 mL VIAL SUBCUT SCH ×2 (05:52→13:46)
[2019-10-21] MEDS: Albuterol/Ipratropium NEB.SOL (2.5/0.5 MG) 3 ML NEB.SOLN INH SCH (07:51)
[2019-10-21] MEDS: SALMET INH SCH (07:51)
[2019-10-21] MEDS: FLUTICAS INH SCH (07:51)
[2019-10-21] MEDS: MDI INH SCH (07:51)
[2019-10-21] MEDS: Multivitamins/Minerals TAB PO SCH (08:40)
[2019-10-21] MEDS: Pantoprazole VIAL 40 MG VIAL IV SCH (08:44)
[2019-10-21] MEDS ORDERED: ROFLUMILAST 500 MCG PO SCH (09:00)
[2019-10-21] MEDS ORDERED: AZITHROMYCIN 500 MG TAB PO SCH (09:00)
[2019-10-21] MEDS: TUDORZA PRESSAIR INH SCH (13:46)
[2019-10-21 15:22] VITALS: BP 124/50
== END 2019-10-21 15:00 | disposition home health service (06) | DRG 208 ==
LOC: ED 11:21 → ICU 13:30 → MED 10-20 10:51
PROVIDERS: ADMIT Internal Medicine; ATTEND Internal Medicine

== ENCOUNTER 2019-11-20 14:19 | Inpatient (IN) ==
[2019-11-20] MEDS ORDERED: Albuterol/Ipratropium NEB.SOL (2.5/0.5 MG) 3 ML NEB.SOLN INH ONE ×2 (14:26→15:02)
[2019-11-20] MEDS ORDERED: methylPREDNISolone 125 mg 2 ML VIAL IV ONE (14:26)
[2019-11-20] MEDS ORDERED: Albuterol (2.5 MG) 0.5 % CONC 0.5 ML NEB.SOLN INH ONE (14:26)
[2019-11-20] MEDS ORDERED: Magnesium Sulfate 2 gm BAG 2 GM/50 ML BAG IVPB ONE (14:43)
[2019-11-20 14:56] LABS: ABS Basophils 0.1 10^3/ul (0-0.2); ABS Eosinophils 0.3 10^3/ul (0-0.6); ABS Lymphocytes 1.6 10^3/ul (1.0-4.8); ABS Monocytes 0.6 10^3/ul (0-0.8); ABS Neutrophils 7.3 10^3/ul (1.5-7.7); Hematocrit 35 % (35-47); Hemoglobin 12.2 g/dL (12.0-16.0); Lymphocyte % 16.5 %; Mean Corpuscular HGB Conc 35 g/dL (31-36); Mean Corpuscular Hemoglobin 32 pg (27-31); Mean Corpuscular Volume 92 fL (80-97); Mean Platelet Volume 6.8 fL (7.4-10.4); Platelet Count 392 10^3/uL (150-450); Red Blood Count 3.82 10^6 /uL (3.70-4.87); Red Cell Distribution Width 14 % (10-15); White Blood Count 9.9 10^3/uL (3.5-10.8)
[2019-11-20 15:09] LABS: Albumin 4.3 g/dL (3.2-5.2); Albumin/Globulin Ratio 1.3 (1-3); BUN/Creatinine Ratio 16.3 (8-20); Calcium 9.3 mg/dL (8.6-10.3); EGFR African American 84.4 (>60); EGFR Non-African American 69.7 (>60); Globulin 3.3 g/dL (2-4); Potassium 4.6 mmol/L (3.5-5.0); Total Bilirubin 0.3 mg/dL (0.2-1.0); Total Protein 7.6 g/dL (6.4-8.9)
[2019-11-20] MEDS ORDERED: Iohexol 350 (CONTRAST) 500 ML MDV IV ONE (15:18)
[2019-11-20] MEDS ORDERED: DOXYcycline 100 MG in NS 0.9% 250 ml 250 ML IVPB ONE (15:18)
[2019-11-20] MEDS ORDERED: NS 0.9% 250 ml 250 ML ONE (15:39)
[2019-11-20] MEDS ORDERED: NS 0.9% 1000 ml BAG 1,000 ML IV SCH (16:15)
[2019-11-20] MEDS ORDERED: Ondansetron ODT 4 mg TAB 4 MG TAB PO PRN (16:17)
[2019-11-20] MEDS ORDERED: Acetylcysteine ORAL SOL 200 mg/ml 30 ml VIAL INH PRN (16:17)
[2019-11-20] MEDS ORDERED: oxyCODONE/Acetamin 5/325 mg TAB PO PRN (16:17)
[2019-11-20] MEDS ORDERED: Albuterol 2.5mg/3 ml (0.083%) NEB.SOLN INH PRN (16:20)
[2019-11-20] MEDS ORDERED: Enoxaparin 40 MG/0.4 ML SYR SUBCUT SCH (17:00)
[2019-11-20] MEDS ORDERED: methylPREDNISolone SOD 40 mg/ml 1 ml VIAL IV SCH (17:00)
[2019-11-20] MEDS: Mometasone/Formoter 200/5 MDI INH SCH (19:06)
[2019-11-20] MEDS: Albuterol/Ipratropium NEB.SOL (2.5/0.5 MG) 3 ML NEB.SOLN INH SCH ×2 (19:06→23:58)
[2019-11-20] MEDS: methylPREDNISolone SOD 40 mg/ml 1 ml VIAL IV SCH (20:01)
[2019-11-21] MEDS: Albuterol/Ipratropium NEB.SOL (2.5/0.5 MG) 3 ML NEB.SOLN INH SCH ×4 (03:50→15:49)
[2019-11-21] MEDS: Mometasone/Formoter 200/5 MDI INH SCH (07:12)
[2019-11-21] MEDS ORDERED: Perflutren Lipid Microsphere 3 ML VIAL ONE (08:10)
[2019-11-21] MEDS ORDERED: Multivitamins/Minerals TAB PO SCH (09:00)
[2019-11-21] MEDS ORDERED: Roflumilast 500 mcg TAB (NF) PO SCH (09:00)
[2019-11-21] MEDS ORDERED: Cholecalciferol (VIT D3) 1,000 unit TAB PO SCH (09:00)
[2019-11-21] MEDS: methylPREDNISolone SOD 40 mg/ml 1 ml VIAL IV SCH (09:27)
[2019-11-21 17:49] VITALS: BP 121/66
[2019-11-22] MEDS ORDERED: CMCS:Roflumilast 500 mcg TAB (NF) PO SCH (09:00)
== END 2019-11-21 17:30 | disposition home or self-care (01) | DRG 191 ==
LOC: ED 14:19 → MED 16:12
PROVIDERS: ADMIT Hospitalist; ATTEND Internal Medicine

== ENCOUNTER 2020-09-11 19:23 | Inpatient (IN) ==
[2020-09-11] MEDS ORDERED: Albuterol 2.5mg/3 ml (0.083%) NEB.SOLN INH ONE (19:30)
[2020-09-11] MEDS ORDERED: Cefepime 1 GM in Dextrose 1 GM/50 ML BAG IV ONE (19:31)
[2020-09-11] MEDS ORDERED: LORazepam 2 mg VIAL 1 ml IV PUSH ONE (19:46)
[2020-09-11] MEDS ORDERED: Lorazepam PYXIS KEY PRN (19:46)
[2020-09-11 20:25] LABS: ABS Basophils 0.1 10^3/ul (0-0.2); ABS Eosinophils 0.2 10^3/ul (0-0.6); ABS Lymphocytes 1.4 10^3/ul (1.0-4.8); ABS Monocytes 0.5 10^3/ul (0-0.8); ABS Neutrophils 5.3 10^3/ul (1.5-7.7); Eosinophil % 2.1 %; Hematocrit 35 % (35-47); Hemoglobin 11.9 g/dL (12.0-16.0); Lymphocyte % 18.4 %; Mean Corpuscular HGB Conc 34 g/dL (31-36); Mean Corpuscular Hemoglobin 31 pg (27-31); Mean Corpuscular Volume 93 fL (80-97); Mean Platelet Volume 6.3 fL (7.4-10.4); Platelet Count 356 10^3/uL (150-450); Red Blood Count 3.78 10^6 /uL (3.70-4.87); Red Cell Distribution Width 14 % (10-15); White Blood Count 7.4 10^3/uL (3.5-10.8)
[2020-09-11 20:43] LABS: Troponin I 0.01 ng/mL (<0.03)
[2020-09-11 20:55] LABS: Albumin 3.8 g/dL (3.2-5.2); Albumin/Globulin Ratio 1.2 (1-3); Calcium 9.1 mg/dL (8.6-10.3); Globulin 3.3 g/dL (2-4); Magnesium 2.8 mg/dL (1.9-2.7); Potassium 3.9 mmol/L (3.5-5.0); Total Bilirubin 0.3 mg/dL (0.2-1.0); Total Protein 7.1 g/dL (6.4-8.9)
[2020-09-11] MEDS ORDERED: methylPREDNISolone 125 mg 2 ML VIAL IV ONE (22:02)
[2020-09-11] MEDS ORDERED: Albuterol/Ipratropium NEB.SOL (2.5/0.5 MG) 3 ML NEB.SOLN INH PRN ×2 (22:03→22:11)
[2020-09-11] MEDS ORDERED: Acetylcysteine INHALATION SOL 200 MG/ML NEB.SOLN 10 ML INH PRN (22:03)
[2020-09-11] MEDS ORDERED: Albuterol HFA INHALER 8 gm MDI INH PRN (22:03)
[2020-09-11] MEDS ORDERED: Ondansetron ODT 4 mg TAB 4 MG TAB PO PRN (22:03)
[2020-09-11 22:29] LABS: C Reactive Protein 14.74 mg/L (<8.01)
[2020-09-11] MEDS: Sulfamethox/Trimethoprim DS TAB 800/160 mg PO SCH (22:36)
[2020-09-11] MEDS ORDERED: Fluticasone-Salmeterol 500-50 DISKUS INH SCH (23:00)
[2020-09-12] MEDS: Budesonide NEB 0.5 MG/2 ML NEB.SOLN INH SCH ×4 (00:48→19:18)
[2020-09-12] MEDS: Albuterol/Ipratropium NEB.SOL (2.5/0.5 MG) 3 ML NEB.SOLN INH SCH ×5 (00:48→19:18)
[2020-09-12] MEDS: PTO: Aclidinium POWDER MDI(NF) INH SCH ×2 (01:31→09:20)
[2020-09-12] MEDS: Enoxaparin 40 MG/0.4 ML SYR SUBCUT SCH ×2 (02:02→21:26)
[2020-09-12 06:17] LABS: ABS Lymphocytes 0.5 10^3/ul (1.0-4.8); ABS Monocytes 0.1 10^3/ul (0-0.8); ABS Neutrophils 4.4 10^3/ul (1.5-7.7); Hematocrit 34 % (35-47); Hemoglobin 11.4 g/dL (12.0-16.0); Lymphocyte % 10.7 %; Mean Corpuscular HGB Conc 34 g/dL (31-36); Mean Corpuscular Hemoglobin 31 pg (27-31); Mean Corpuscular Volume 93 fL (80-97); Mean Platelet Volume 6.5 fL (7.4-10.4); Platelet Count 338 10^3/uL (150-450); Red Blood Count 3.62 10^6 /uL (3.70-4.87); Red Cell Distribution Width 14 % (10-15)
[2020-09-12 06:26] LABS: Calcium 8.7 mg/dL (8.6-10.3); EGFR African American 80.7 (>60); EGFR Non-African American 66.7 (>60); Potassium 4.4 mmol/L (3.5-5.0)
[2020-09-12] MEDS: Cholecalciferol (VIT D3) 1,000 unit TAB PO SCH (08:07)
[2020-09-12] MEDS: methylPREDNISolone SOD 40 mg/ml 1 ml VIAL IV SCH ×2 (08:08→21:30)
[2020-09-12] MEDS: Sulfamethox/Trimethoprim DS TAB 800/160 mg PO SCH ×2 (08:51→21:23)
[2020-09-12] MEDS ORDERED: CMC:Roflumilast 500 mcg TAB (NF) PO SCH (09:00)
[2020-09-12] MEDS ORDERED: Acetylcysteine INHALATION SOL 200 MG/ML NEB.SOLN 10 ML INH SCH (19:00)
[2020-09-12] MEDS ORDERED: NS 0.9% 500 ml BAG 500 ML IV ONE (19:06)
[2020-09-12] MEDS: diPHENhydraMINE 25 mg TAB PO SCH (21:28)
[2020-09-12] MEDS ORDERED: Heparin 5000 UNITS/ML 1 mL VIAL SUBCUT SCH (22:00)
[2020-09-13] MEDS: Albuterol/Ipratropium NEB.SOL (2.5/0.5 MG) 3 ML NEB.SOLN INH SCH ×4 (01:52→20:12)
[2020-09-13] MEDS: PTO: Aclidinium POWDER MDI(NF) INH SCH ×3 (02:21→20:12)
[2020-09-13] MEDS: FLUTICASONE PROPIONATE INH SCH ×3 (02:22→21:46)
[2020-09-13] MEDS: SALMETEROL INH SCH ×3 (02:22→21:46)
[2020-09-13 06:51] LABS: Calcium 8.8 mg/dL (8.6-10.3); EGFR African American 89.3 (>60); EGFR Non-African American 73.8 (>60); Potassium 4.6 mmol/L (3.5-5.0)
[2020-09-13] MEDS ORDERED: Acetylcysteine INHALATION SOL 200 MG/ML NEB.SOLN 10 ML INH SCH (07:00)
[2020-09-13] MEDS ORDERED: Acetylcysteine INH SOL (RT) 200 MG/ML 4 ML VIAL INH STA (07:54)
[2020-09-13] MEDS: Sulfamethox/Trimethoprim DS TAB 800/160 mg PO SCH ×2 (08:27→21:45)
[2020-09-13] MEDS: Cholecalciferol (VIT D3) 1,000 unit TAB PO SCH (08:27)
[2020-09-13] MEDS: ROFLUMILAST 500 MCG PO SCH (08:28)
[2020-09-13] MEDS: methylPREDNISolone SOD 40 mg/ml 1 ml VIAL IV SCH ×2 (08:29→21:46)
[2020-09-13] MEDS: Budesonide NEB 0.5 MG/2 ML NEB.SOLN INH SCH ×2 (09:05→20:11)
[2020-09-13] MEDS: Acetylcysteine INH SOL (RT) 200 MG/ML 4 ML VIAL INH SCH ×2 (09:06→20:12)
[2020-09-13 16:54] LABS: TSH Ultra Thyroid Stim Horm 0.05 mcIU/mL (0.34-5.60)
[2020-09-13 18:16] LABS: Free T4 1.17 ng/dL (0.61-1.12)
[2020-09-13] MEDS: diPHENhydraMINE 25 mg TAB PO SCH (21:45)
[2020-09-13] MEDS: Enoxaparin 40 MG/0.4 ML SYR SUBCUT SCH (21:45)
[2020-09-14] MEDS: Albuterol/Ipratropium NEB.SOL (2.5/0.5 MG) 3 ML NEB.SOLN INH SCH ×3 (01:14→14:39)
[2020-09-14 06:56] LABS: Calcium 8.7 mg/dL (8.6-10.3); EGFR African American 84.2 (>60); EGFR Non-African American 69.6 (>60); Potassium 4.1 mmol/L (3.5-5.0)
[2020-09-14] MEDS: Acetylcysteine INH SOL (RT) 200 MG/ML 4 ML VIAL INH SCH (08:03)
[2020-09-14] MEDS: PTO: Aclidinium POWDER MDI(NF) INH SCH (08:04)
[2020-09-14] MEDS: Budesonide NEB 0.5 MG/2 ML NEB.SOLN INH SCH (08:09)
[2020-09-14] MEDS ORDERED: Sulfamethox/Trimethoprim SUSP 800-160mg/20 ML UDC PO SCH (09:00)
[2020-09-14] MEDS: ROFLUMILAST 500 MCG PO SCH (09:55)
[2020-09-14] MEDS: Cholecalciferol (VIT D3) 1,000 unit TAB PO SCH (09:56)
[2020-09-14 11:24] VITALS: BP 137/57
[2020-09-14] MEDS: FLUTICASONE PROPIONATE INH SCH (11:28)
[2020-09-14] MEDS: SALMETEROL INH SCH (11:28)
== END 2020-09-14 15:15 | disposition home or self-care (01) | DRG 190 ==
LOC: MED 19:23 → ED 19:23 → OBSVTOIN 23:43 → MED 09-12 00:27
PROVIDERS: ADMIT Internal Medicine; ATTEND Internal Medicine

== ENCOUNTER 2021-08-14 18:20 | Inpatient (IN) ==
[2021-08-14] MEDS ORDERED: Albuterol/Ipratropium NEB.SOL (2.5/0.5 MG) 3 ML NEB.SOLN INH ONE ×2 (19:02→20:50)
[2021-08-14] MEDS ORDERED: Morphine 4 MG/ML VIAL (1 ml) IV ONE ×2 (19:03→23:11)
[2021-08-14 19:30] LABS: ABS Eosinophils 0.3 10^3/ul (0-0.6); ABS Lymphocytes 1.7 10^3/ul (1.0-4.8); ABS Monocytes 0.8 10^3/ul (0-0.8); ABS Neutrophils 5.8 10^3/ul (1.5-7.7); Eosinophil % 3.5 %; Hematocrit 32 % (35-47); Hemoglobin 10.8 g/dL (12.0-16.0); Lymphocyte % 19.7 %; Mean Corpuscular HGB Conc 34 g/dL (31-36); Mean Corpuscular Hemoglobin 30 pg (27-31); Mean Corpuscular Volume 90 fL (80-97); Mean Platelet Volume 6.4 fL (7.4-10.4); Platelet Count 403 10^3/uL (150-450); Red Blood Count 3.56 10^6 /uL (3.70-4.87); Red Cell Distribution Width 14 % (10-15); White Blood Count 8.6 10^3/uL (3.5-10.8)
[2021-08-14 20:18] LABS: Albumin 3.7 g/dL (3.2-5.2); Albumin/Globulin Ratio 1.2 (1-3); Globulin 3.2 g/dL (2-4); Potassium 4.9 mmol/L (3.5-5.0); Total Bilirubin 0.4 mg/dL (0.2-1.0); Total Protein 6.9 g/dL (6.4-8.9); eGFR CKD-EPI 75.4 (>60)
[2021-08-14] MEDS ORDERED: methylPREDNISolone SOD SUCC 125 mg 2 ML VIAL IV ONE (20:52)
[2021-08-15] MEDS ORDERED: EPINEPHrine Anaphylaxis SYR CERTADOSE SYR KIT IM PRN (01:14)
[2021-08-15 03:56] LABS: TSH Ultra Thyroid Stim Horm 0.67 mcIU/mL (0.34-5.60)
[2021-08-15 05:39] LABS: Urine Appearance Cloudy; Urine Bilirubin Negative (Negative); Urine Blood 2+ (Negative); Urine Color Yellow; Urine Glucose Negative (Negative); Urine Ketones Trace (Negative); Urine Nitrite Positive (Negative); Urine Protein Negative (Negative); Urine Specific Gravity 1.016 (1.002-1.030); Urine Urobilinogen Negative (Negative)
[2021-08-15 05:48] LABS: Urine Bacteria 3+ (Absent); Urine Red Blood Cell 3+(>10/hpf) (Absent); Urine White Blood Cell 3+(>20/hpf) (Absent)
[2021-08-15] MEDS: Enoxaparin 40 MG/0.4 ML SYR SUBCUT SCH (06:22)
[2021-08-15] MEDS: FLUTICASONE SALMETEROL INH SCH ×3 (07:33→20:30)
[2021-08-15] MEDS: CMC:Roflumilast 500 mcg TAB (NF) PO SCH (09:40)
[2021-08-15] MEDS: ACLIDINIUM MDI INH SCH ×2 (10:19→21:41)
[2021-08-15] MEDS: Albuterol HFA INHALER 8 gm MDI INH PRN (11:34)
[2021-08-15] MEDS ORDERED: Senna TAB 8.6 mg TAB PO PRN (11:42)
[2021-08-15] MEDS: DOXYcycline 100 MG in NS 0.9% 250 ml 250 ML IVPB SCH ×2 (12:48→20:44)
[2021-08-16] MEDS: Enoxaparin 40 MG/0.4 ML SYR SUBCUT SCH (05:54)
[2021-08-16 06:25] LABS: Hematocrit 34 % (35-47); Hemoglobin 11.3 g/dL (12.0-16.0); Mean Corpuscular HGB Conc 33 g/dL (31-36); Mean Corpuscular Hemoglobin 30 pg (27-31); Mean Corpuscular Volume 92 fL (80-97); Mean Platelet Volume 6.9 fL (7.4-10.4); Platelet Count 508 10^3/uL (150-450); Red Blood Count 3.74 10^6 /uL (3.70-4.87); Red Cell Distribution Width 14 % (10-15); White Blood Count 15.6 10^3/uL (3.5-10.8)
[2021-08-16 06:50] LABS: Magnesium 1.8 mg/dL (1.9-2.7); Potassium 4.6 mmol/L (3.5-5.0); eGFR CKD-EPI 74.3 (>60)
[2021-08-16] MEDS ORDERED: Magnesium Sulfate IV 3 GM in NS 0.9% 100 ml BAG 100 ML IVPB ONE (06:52)
[2021-08-16] MEDS ORDERED: Magnesium Sulfate 1 GM IV 1 GM/100 ML BAG IV ONE (07:30)
[2021-08-16] MEDS: FLUTICASONE SALMETEROL INH SCH ×2 (07:32→20:19)
[2021-08-16] MEDS ORDERED: Magnesium Sulfate 2 GM IV (Premix) IVPB ONE (08:00)
[2021-08-16] MEDS ORDERED: NS 0.9% 1000 ml BAG 1,000 ML IV SCH (08:15)
[2021-08-16] MEDS: Ondansetron 4 mg VIAL 2 MG/ML 2 ml VIAL IV PRN ×3 (08:30→19:21)
[2021-08-16] MEDS ORDERED: Magnesium Hydroxide LIQ 30 ML UDC PO PRN (08:31)
[2021-08-16] MEDS ORDERED: [UNRECOGNIZED DRUG - OTHER] SUBCUT SCH (09:00)
[2021-08-16] MEDS ORDERED: IMMUNE GLOBULIN SUBCUT SCH (09:00)
[2021-08-16] MEDS: CMC:Roflumilast 500 mcg TAB (NF) PO SCH (09:51)
[2021-08-16] MEDS: ACLIDINIUM MDI INH SCH ×2 (09:54→21:58)
[2021-08-16 10:22] LABS: ABS Basophils 0.1 10^3/ul (0-0.2); ABS Lymphocytes 2.5 10^3/ul (1.0-4.8); ABS Monocytes 1.6 10^3/ul (0-0.8); ABS Neutrophils 11.4 10^3/ul (1.5-7.7); Eosinophil % 0.3 %; Lymphocyte % 15.7 %
[2021-08-16] MEDS: DOXYcycline 100 MG in NS 0.9% 250 ml 250 ML IVPB SCH ×2 (11:45→19:24)
[2021-08-16] MEDS ORDERED: Acetaminophen IV 1 GM/100ML 100 ML IV PRN (19:00)
[2021-08-16] MEDS: Albuterol HFA INHALER 8 gm MDI INH PRN (23:25)
[2021-08-17] MEDS: Enoxaparin 40 MG/0.4 ML SYR SUBCUT SCH (04:00)
[2021-08-17 05:10] LABS: ABS Lymphocytes 1.8 10^3/ul (1.0-4.8); ABS Monocytes 1.1 10^3/ul (0-0.8); Eosinophil % 0.4 %; Hematocrit 33 % (35-47); Hemoglobin 10.9 g/dL (12.0-16.0); Lymphocyte % 13.8 %; Mean Corpuscular HGB Conc 33 g/dL (31-36); Mean Corpuscular Hemoglobin 30 pg (27-31); Mean Corpuscular Volume 90 fL (80-97); Mean Platelet Volume 6.7 fL (7.4-10.4); Platelet Count 465 10^3/uL (150-450); Red Blood Count 3.62 10^6 /uL (3.70-4.87); Red Cell Distribution Width 14 % (10-15)
[2021-08-17 06:28] LABS: Calcium 8.2 mg/dL (8.6-10.3); Magnesium 1.9 mg/dL (1.9-2.7); Potassium 4.4 mmol/L (3.5-5.0); eGFR CKD-EPI 91.5 (>60)
[2021-08-17] MEDS: FLUTICASONE SALMETEROL INH SCH ×2 (07:21→18:57)
[2021-08-17] MEDS: Albuterol HFA INHALER 8 gm MDI INH PRN (07:21)
[2021-08-17] MEDS: DOXYcycline 100 MG in NS 0.9% 250 ml 250 ML IVPB SCH (08:10)
[2021-08-17] MEDS: ACLIDINIUM MDI INH SCH ×2 (08:13→19:43)
[2021-08-17] MEDS: CMC:Roflumilast 500 mcg TAB (NF) PO SCH (08:13)
[2021-08-17] MEDS: Nitrofurantoin (monohydrate/macrocrystals) 100 mg CAP PO SCH ×2 (12:29→19:53)
[2021-08-17] MEDS ORDERED: Metoprolol Tartrate 5 mg VIAL 5 ml VIAL (1 mg/ml) IV PRN (22:18)
[2021-08-18] MEDS: Enoxaparin 40 MG/0.4 ML SYR SUBCUT SCH ×2 (03:27→04:11)
[2021-08-18 07:30] VITALS: BP 151/60
[2021-08-18] MEDS: CMC:Roflumilast 500 mcg TAB (NF) PO SCH (08:07)
[2021-08-18 08:41] LABS: Calcium 8.7 mg/dL (8.6-10.3)
[2021-08-18] MEDS: Albuterol HFA INHALER 8 gm MDI INH PRN (08:55)
[2021-08-18] MEDS: FLUTICASONE SALMETEROL INH SCH (08:56)
[2021-08-18 09:19] LABS: Osmolality Serum 273 mOsm/kg (275-295)
[2021-08-18 09:19] LABS: Urine Osmo 280 mOsm/kg (150-1150)
[2021-08-18] MEDS: ACLIDINIUM MDI INH SCH (09:23)
[2021-08-18] MEDS: Nitrofurantoin (monohydrate/macrocrystals) 100 mg CAP PO SCH (10:03)
[2021-08-19] MEDS ORDERED: IMMUNE GLOBULIN SUBCUT SCH (09:00)
== END 2021-08-18 12:15 | disposition home or self-care (01) | DRG 183 ==
LOC: ED 18:20 → EDHOLD 18:20 → SUATTDRO 08-15 01:13 → MED 08-15 06:26
PROVIDERS: ADMIT Internal Medicine; ATTEND Student in an Organized Health Care Education/Training Program